=== PATIENT | male | born 1935 | race Caucasian/White ===

== ENCOUNTER 2017-12-25 13:37 | Inpatient (IN) ==
[2017-12-25 14:10] LABS: Basophils % 0.1 %; Hematocrit 36.9 % (37.5-50.1); Hemoglobin 12.3 g/dL (12.9-16.9); Immature Granulocytes % 1.5 % (0-4); Lymphocytes # 0.4 K/mcL (0.6-4.6); Lymphocytes % 2.1 %; Mean Corpuscular HGB Conc 33.3 g/dL (31.6-35.5); Mean Corpuscular Hemoglobin 26.6 pg (28.0-33.3); Mean Corpuscular Volume 79.7 fL (83.0-100.0); Monocytes # 0.9 K/mcL (0.0-1.3); Monocytes % 5.4 %; Neutrophils # 15.7 K/mcL (1.6-8.9); Platelet Count 206 K/mcL (140-400); Red Blood Count 4.63 M/mcL (4.19-5.50); Red Cell Distribution Width 15.3 % (11.5-14.5); Segmented Neutrophils % 90.9 %
[2017-12-25 14:16] LABS: INR 1.3; Prothrombin Time 14.4 Seconds (9.4-12.1)
--- NOTE | 2017-12-25 14:20 | Emergency Department Note ---
Disposition Clinical Impression: Osteomyelitis Qualifiers: Osteomyelitis type: unspecified type Osteomyelitis location: foot Laterality: right Qualified Code(s): M86.9 - Osteomyelitis, unspecified Disposition: Admitted As Inpatient Condition: Good Referrals: NONE,PCP [Primary Care Provider] - Forms: ED Satisfaction Letter General Adult HPI - General Chief complaint: ED Fall Stated complaint: Fall/FEVER/FOOT WOUND Time Seen by Provider: 12/25/17 13:41 Source: EMS Limitations: no limitations Nursing Notes Reviewed: Yes Vital Signs Reviewed: Yes - History of Present Illness HPI Narrative: Patient presents today for evaluation of left hip pain. Patient states that he had surgery for a nonhealing wound on his left foot. This was complicated with plates and screws as well as recurrent nonhealing wound. He states that he was finally cleared to start walking in a boot. The patient states that he has been doing a lot more things and since then has developed some left hip pain. The left hip pain is worse with movement. He states that he was really sore today and was having a hard time getting around so he was rolling off a couch when he had a slight fall where he did catch himself. Patient states no significant head injury. He states that he presented today for evaluation of his hip pain. On exam by triage she is found to be febrile at 102. He states that he has not had any cough or shortness of breath. Patient does have a history of bladder cancer with cystectomy. He has a bladder pump in place and a bladder this made out of large intestine. The scrotal area does have chronic skin changes with dry flaky skin. There is retraction of the glands. There is no abdominal pain. No nausea vomiting or diarrhea. Pain Scale: 8 - Related Data Home Medications Medication Instructions Recorded Confirmed Donepezil [Aricept] 5 mg PO DAILY 12/25/17 12/25/17 InFLIXimab [Remicade] 100 mg IV AD 12/25/17 12/25/17 Losartan [Cozaar] 25 mg PO DAILY 12/25/17 12/25/17 [place]-3/Dha/Epa/Fish Oil [Fish Oil 1 cap PO DAILY 12/25/17 12/25/17 1,000 mg Softgel] Paricalcitol [Zemplar] 1 mcg PO Q72H 12/25/17 12/25/17 Sertraline [Zoloft] 50 mg PO DAILY 12/25/17 12/25/17 Tramadol HCl [Ultram] 50 mg PO QID PRN 12/25/17 12/25/17 amLODIPine [Norvasc] 5 mg PO DAILY 12/25/17 12/25/17 Allergies Allergy/AdvReac Type Severity Reaction Status Date / Time cephalexin [From Keflex] Allergy Hives Verified 12/25/17 14:32 Penicillins Allergy Hives Verified 12/25/17 14:32 Review of Systems: CONSTITUTIONAL: Fever. HEENT: Eyes: No visual changes. Ears, Nose, Throat: No hearing loss, difficulty talking or unable to swallow. SKIN: No rash or itching. CARDIOVASCULAR: No chest pain, chest pressure or chest discomfort. No palpitations or edema. RESPIRATORY: No shortness of breath, cough or sputum. GASTROINTESTINAL: No anorexia, nausea, vomiting or diarrhea. No abdominal pain or blood. GENITOURINARY: No burning on urination or hematuria. NEUROLOGICAL: No headache, dizziness, syncope, paralysis, ataxia, numbness or tingling in the extremities. No change in bowel or bladder control. MUSCULOSKELETAL: Left foot pain and left hip pain Past Medical History - Past Medical History Medical history: Reports: hypertension, renal disease Psychiatric history: Reports: anxiety - Social History Smoking Status: Former smoker Smokeless Tobacco Status: No Alcohol use: Reports: none Drug use: Reports: none Physical Exam General: Well appearing, nontoxic, no acute distress Head: Normocephalic Atraumatic Eyes: PERRL, EOMI ENT: Airway patent, no stridor Neck: supple, no meningismus Chest: Lungs clear to auscultation bilateral Cardiac: Regular rate and rhythm, no murmurs, rubs or gallops Abdomen: soft, nontender, nondistended; no guarding, rebound, or tenderness to percussion Chronic skin changes to the scrotum with pump in place. Retraction of the glans. Musculoskeletal: No pain to the thoracic or lumbar spine. Mild tenderness to palpation over the greater trochanter. Skin: Wound VAC in place on the left foot. Extends to the posterior heel. No signs of erythema. Small bloody drainage within the tube. Neuro: Alert and Oriented to person, place, and time; No focal deficit - General Limitations: no limitations General appearance: alert Course - Reevaluation(s) Reevaluation #1: Patient's infectious workup concerning for ostium myelitis as he has an elevated white count as well as an elevated ESR and CRP. Imaging is negative except for chronic changes of the right foot which has age-indeterminate osteomyelitis in the setting of fever elevated inflammatory markers and increased drainage from the wound VAC it is likely osteomyelitis of the right heel. Patient will be started on Cipro as well as vancomycin. The case was discussed with the patient who was offered transfer to his previous podiatry provider. Patient states at this point he would like to know more what is going on prior to transfer. Patient would like to stay at this hospital if possible. We will discuss with hospitalist as well as podiatry. - Consultations Consultation #1: Discussed with hospitalist. Patient accepted for admission pending discussion with podiatry. Consultation #2: Discussed with Dr. Lynch. Agrees with antibiotics. MR was recommended and he agrees that a bone scan is the best test of choice for the osteomyelitis. He will consult on the patient. Vital Signs Temperature 102.2 F H 12/25/17 13:40 Pulse Rate 92 12/25/17 13:40 Respiratory Rate 18 12/25/17 13:40 Blood Pressure 117/65 12/25/17 13:40 O2 Sat by Pulse Oximetry 96 12/25/17 13:40 Temperature 98.2 F 12/25/17 16:53 Pulse Rate 86 12/25/17 16:53 Respiratory Rate 16 12/25/17 16:53 Blood Pressure 129/76 12/25/17 16:53 O2 Sat by Pulse Oximetry 98 12/25/17 16:53 Oxygen Delivery Oxygen Delivery Room Air Medical Decision Making - Medical Records Medical records reviewed: Yes I reviewed the patient's medical records. - Lab Data Lab results reviewed: Yes I reviewed the patient's lab results. Result diagrams: 12/25/17 13:57 12/25/17 13:57 Lab Results 12/25/17 12/25/17 12/25/17 Range/Units 13:57 13:57 13:57 WBC 17.2 H (4.3-11.1) K/mcL RBC 4.63 (4.19-5.50) M/mcL Hgb 12.3 L (12.9-16.9) g/dL Hct 36.9 L (37.5-50.1) % MCV 79.7 L (83.0-100.0) fL MCH 26.6 L (28.0-33.3) pg MCHC 33.3 (31.6-35.5) g/dL RDW 15.3 H (11.5-14.5) % Plt Count 206 (140-400) K/mcL MPV 9.0 L (9.4-12.4) fL Immature Gran % 1.5 (0-4) % Seg Neutrophils % 90.9 % Lymphocytes % 2.1 % Monocytes % 5.4 % Eosinophils % 0.0 % Basophils % 0.1 % Neutrophils # 15.7 H (1.6-8.9) K/mcL Lymphocytes # 0.4 L (0.6-4.6) K/mcL Monocytes # 0.9 (0.0-1.3) K/mcL Eosinophils # 0.0 (0.0-0.6) K/mcL Basophils # 0.0 (0.0-0.2) K/mcL ESR 94 H (0-10) mm/hr PT 14.4 H (9.4-12.1) Seconds INR 1.3 Sodium (136-145) mEq/L Potassium (3.5-5.1) mEq/L Chloride (98-107) mEq/L Carbon Dioxide (23-29) mEq/L BUN (8-23) mg/dL Creatinine (0.70-1.30) mg/dL Est GFR ( Amer) (> 60) Est GFR (Non-Af Amer) (> 60) BUN/Creatinine Ratio (6-26) Glucose (70-105) mg/dL Calculated Osmolality (280-300) Lactic Acid (0.5-2.2) mmol/L Calcium (8.6-10.3) mg/dL Total Bilirubin (0.3-1.0) mg/dL Direct Bilirubin (0.0-0.2) mg/dL Indirect Bilirubin (0.0-1.2) mg/dL AST (13-39) Units/L ALT (7-52) Units/L Alkaline Phosphatase (34-104) Units/L Troponin I (< 0.04) ng/mL C-Reactive Protein (Less than 10) mg/L Serum Total Protein (6.4-8.9) g/dL Albumin (3.5-5.7) g/dL Globulin (2.4-3.5) g/dL Albumin/Globulin Ratio (1.1-2.2) Urine Color (Yellow) Urine Clarity (Clear) Urine pH (5.0-8.0) pH Units Ur Specific [place] (1.010-1.025) Urine Protein (Neg-Trace) mg/dL Urine Glucose (UA) (Normal) mg/dL Urine Ketones (Negative) mg/dL Urine Blood (Negative) Urine Nitrite (Negative) Urine Bilirubin (Negative) Urine Urobilinogen (Normal) mg/dL Ur Leukocyte Esterase (Negative) Urine Microscopic RBC (0-3) per hpf Urine Microscopic WBC (0-3) per hpf Ur Squamous Epith Cells (None-Few) per lpf Urine Bacteria (None-Few) per hpf Hyaline Casts (None-Few) per lpf Urine Yeast (None Seen) per hpf Ur Culture Indicated? (NO) 12/25/17 12/25/17 12/25/17 Range/Units 13:57 13:57 14:10 WBC (4.3-11.1) K/mcL RBC (4.19-5.50) M/mcL Hgb (12.9-16.9) g/dL Hct (37.5-50.1) % MCV (83.0-100.0) fL MCH (28.0-33.3) pg MCHC (31.6-35.5) g/dL RDW (11.5-14.5) % Plt Count (140-400) K/mcL MPV (9.4-12.4) fL Immature Gran % (0-4) % Seg Neutrophils % % Lymphocytes % % Monocytes % % Eosinophils % % Basophils % % Neutrophils # (1.6-8.9) K/mcL Lymphocytes # (0.6-4.6) K/mcL Monocytes # (0.0-1.3) K/mcL Eosinophils # (0.0-0.6) K/mcL Basophils # (0.0-0.2) K/mcL ESR (0-10) mm/hr PT (9.4-12.1) Seconds INR Sodium 128 L (136-145) mEq/L Potassium 4.3 (3.5-5.1) mEq/L Chloride 97 L (98-107) mEq/L Carbon Dioxide 24 (23-29) mEq/L BUN 27 H (8-23) mg/dL Creatinine 1.75 H (0.70-1.30) mg/dL Est GFR ( Amer) 46 L (> 60) Est GFR (Non-Af Amer) 38 L (> 60) BUN/Creatinine Ratio 15 (6-26) Glucose 126 H (70-105) mg/dL Calculated Osmolality 273 L (280-300) Lactic Acid 1.2 (0.5-2.2) mmol/L Calcium 8.9 (8.6-10.3) mg/dL Total Bilirubin 0.8 (0.3-1.0) mg/dL Direct Bilirubin 0.2 (0.0-0.2) mg/dL Indirect Bilirubin 0.6 (0.0-1.2) mg/dL AST 21 (13-39) Units/L ALT 8 (7-52) Units/L Alkaline Phosphatase 75 (34-104) Units/L Troponin I < 0.03 (< 0.04) ng/mL C-Reactive Protein 254 H (Less than 10) mg/L Serum Total Protein 7.5 (6.4-8.9) g/dL Albumin 3.6 (3.5-5.7) g/dL Globulin 3.9 H (2.4-3.5) g/dL Albumin/Globulin Ratio 0.9 L (1.1-2.2) Urine Color Yellow (Yellow) Urine Clarity Cloudy A (Clear) Urine pH 6.0 (5.0-8.0) pH Units Ur Specific [place] 1.017 (1.010-1.025) Urine Protein 30 H (Neg-Trace) mg/dL Urine Glucose (UA) Normal (Normal) mg/dL Urine Ketones Negative (Negative) mg/dL Urine Blood Small H (Negative) Urine Nitrite Negative (Negative) Urine Bilirubin Negative (Negative) Urine Urobilinogen Normal (Normal) mg/dL Ur Leukocyte Esterase Small H (Negative) Urine Microscopic RBC 5-15 H (0-3) per hpf Urine Microscopic WBC 15-30 H (0-3) per hpf Ur Squamous Epith Cells Many H (None-Few) per lpf Urine Bacteria None Seen (None-Few) per hpf Hyaline Casts None Seen (None-Few) per lpf Urine Yeast Few H (None Seen) per hpf Ur Culture Indicated? NO. A (NO) - Radiology Data Radiology results reviewed: Yes I reviewed the patient's radiology results. - EKG Data EKG #1 EKG attestation: Yes I reviewed and interpreted this EKG. EKG results narrative: EKG shows sinus rhythm with nonspecific T-wave abnormalities. Rate of 87. CT Interval 173. QRS 108. QTC 403. Patient has no ST elevations or depressions. No significant changes from previous EKG of 07/07/14.
[2017-12-25] MEDS ORDERED: 0.9 % Sodium Chloride 500 ML IVC ONE (14:25)
[2017-12-25] MEDS ORDERED: *HR* OxyCODONE Immed Rel 5 MG TABLET PO ONE (14:25)
[2017-12-25 14:33] LABS: Troponin I < 0.03 ng/mL (< 0.04)
[2017-12-25 14:39] LABS: Alanine Aminotransferase 8 Units/L (7-52); Albumin 3.6 g/dL (3.5-5.7); Albumin/Globulin Ratio 0.9 (1.1-2.2); Alkaline Phosphatase 75 Units/L (34-104); Aspartate Amino Transferase 21 Units/L (13-39); BUN/Creatinine Ratio 15 (6-26); Bilirubin,Direct 0.2 mg/dL (0.0-0.2); Bilirubin,Indirect 0.6 mg/dL (0.0-1.2); Bilirubin,Total 0.8 mg/dL (0.3-1.0); Blood Urea Nitrogen 27 mg/dL (8-23); Calcium 8.9 mg/dL (8.6-10.3); Carbon Dioxide 24 mEq/L (23-29); Chloride 97 mEq/L (98-107); Globulin 3.9 g/dL (2.4-3.5); Glucose 126 mg/dL (70-105); Osmolality,Calculated 273 (280-300); Potassium 4.3 mEq/L (3.5-5.1); Sodium 128 mEq/L (136-145); Total Protein 7.5 g/dL (6.4-8.9); eGFR For African Americans 46 (> 60); eGFR For Non-African Americans 38 (> 60)
[2017-12-25 15:23] LABS: C-Reactive Protein 254 mg/L (Less than 10)
[2017-12-25] MEDS ORDERED: Acetaminophen 325 MG TABLET PO ONE (15:25)
[2017-12-25 15:27] LABS: Bilirubin,Urine Negative (Negative); Blood,Urine Small (Negative); Clarity,Urine Cloudy (Clear); Color,Urine Yellow (Yellow); Glucose,Urine (UA) Normal (Normal); Ketones,Urine Negative (Negative); Leukocyte Esterase,Urine Small (Negative); Nitrite,Urine Negative (Negative); Protein,Urine 30 mg/dL (Neg-Trace); Specific Gravity,Urine 1.017 (1.010-1.025); Urobilinogen,Urine Normal (Normal)
[2017-12-25 15:30] LABS: Bacteria,Urine None Seen per hpf (None-Few); Hyaline Casts,Urine None Seen per lpf (None-Few); Squamous Epithelial Cell,Urine Many per lpf (None-Few); WBC,Urine 15-30 per hpf (0-3)
[2017-12-25 15:45] LABS: Yeast,Urine Few per hpf (None Seen)
--- NOTE | 2017-12-25 16:12 | Emergency Department Note ---
Disposition Clinical Impression: Fever Qualifiers: Fever type: unspecified Qualified Code(s): R50.9 - Fever, unspecified Disposition: Still a Patient Condition: Fair Referrals: NONE,PCP [Primary Care Provider] - Forms: ED Satisfaction Letter Fall HPI - General Chief Complaint: ED Fall Stated Complaint: Fall/FEVER/FOOT WOUND Time Seen by Provider: 12/25/17 13:41 Source: EMS Mode of arrival: ambulatory Limitations: no limitations Nursing Notes Reviewed: Yes Vital Signs Reviewed: Yes - Related Data Home Medications Medication Instructions Recorded Confirmed Donepezil [Aricept] 5 mg PO DAILY 12/25/17 12/25/17 InFLIXimab [Remicade] 100 mg IV AD 12/25/17 12/25/17 Losartan [Cozaar] 25 mg PO DAILY 12/25/17 12/25/17 [place]-3/Dha/Epa/Fish Oil [Fish Oil 1 cap PO DAILY 12/25/17 12/25/17 1,000 mg Softgel] Paricalcitol [Zemplar] 1 mcg PO Q72H 12/25/17 12/25/17 Sertraline [Zoloft] 50 mg PO DAILY 12/25/17 12/25/17 Tramadol HCl [Ultram] 50 mg PO QID PRN 12/25/17 12/25/17 amLODIPine [Norvasc] 5 mg PO DAILY 12/25/17 12/25/17 Allergies Allergy/AdvReac Type Severity Reaction Status Date / Time cephalexin [From Keflex] Allergy Hives Verified 12/25/17 14:32 Penicillins Allergy Hives Verified 12/25/17 14:32 Fall PMH - Past Medical History Medical history: Reports: hypertension, renal disease Psychiatric history: Reports: anxiety - Social History Smoking Status: Former smoker Alcohol use: Reports: none Drug use: Reports: none Physical Exam - General Limitations: no limitations General appearance: alert Course Vital Signs Temperature 102.2 F H 12/25/17 13:40 Pulse Rate 92 12/25/17 13:40 Respiratory Rate 18 12/25/17 13:40 Blood Pressure 117/65 12/25/17 13:40 O2 Sat by Pulse Oximetry 96 12/25/17 13:40 Temperature 102.2 F H 12/25/17 13:40 Pulse Rate 92 12/25/17 13:40 Respiratory Rate 18 12/25/17 13:40 Blood Pressure 117/65 12/25/17 13:40 O2 Sat by Pulse Oximetry 96 12/25/17 13:40 Oxygen Delivery Oxygen Delivery Nasal Cannula Fall - Lab Data Result diagrams: 12/25/17 13:57 12/25/17 13:57 Lab Results 12/25/17 12/25/17 12/25/17 Range/Units 13:57 13:57 13:57 WBC 17.2 H (4.3-11.1) K/mcL RBC 4.63 (4.19-5.50) M/mcL Hgb 12.3 L (12.9-16.9) g/dL Hct 36.9 L (37.5-50.1) % MCV 79.7 L (83.0-100.0) fL MCH 26.6 L (28.0-33.3) pg MCHC 33.3 (31.6-35.5) g/dL RDW 15.3 H (11.5-14.5) % Plt Count 206 (140-400) K/mcL MPV 9.0 L (9.4-12.4) fL Immature Gran % 1.5 (0-4) % Seg Neutrophils % 90.9 % Lymphocytes % 2.1 % Monocytes % 5.4 % Eosinophils % 0.0 % Basophils % 0.1 % Neutrophils # 15.7 H (1.6-8.9) K/mcL Lymphocytes # 0.4 L (0.6-4.6) K/mcL Monocytes # 0.9 (0.0-1.3) K/mcL Eosinophils # 0.0 (0.0-0.6) K/mcL Basophils # 0.0 (0.0-0.2) K/mcL ESR 94 H (0-10) mm/hr PT 14.4 H (9.4-12.1) Seconds INR 1.3 Sodium (136-145) mEq/L Potassium (3.5-5.1) mEq/L Chloride (98-107) mEq/L Carbon Dioxide (23-29) mEq/L BUN (8-23) mg/dL Creatinine (0.70-1.30) mg/dL Est GFR ( Amer) (> 60) Est GFR (Non-Af Amer) (> 60) BUN/Creatinine Ratio (6-26) Glucose (70-105) mg/dL Calculated Osmolality (280-300) Lactic Acid (0.5-2.2) mmol/L Calcium (8.6-10.3) mg/dL Total Bilirubin (0.3-1.0) mg/dL Direct Bilirubin (0.0-0.2) mg/dL Indirect Bilirubin (0.0-1.2) mg/dL AST (13-39) Units/L ALT (7-52) Units/L Alkaline Phosphatase (34-104) Units/L Troponin I (< 0.04) ng/mL C-Reactive Protein (Less than 10) mg/L Serum Total Protein (6.4-8.9) g/dL Albumin (3.5-5.7) g/dL Globulin (2.4-3.5) g/dL Albumin/Globulin Ratio (1.1-2.2) Urine Color (Yellow) Urine Clarity (Clear) Urine pH (5.0-8.0) pH Units Ur Specific [place] (1.010-1.025) Urine Protein (Neg-Trace) mg/dL Urine Glucose (UA) (Normal) mg/dL Urine Ketones (Negative) mg/dL Urine Blood (Negative) Urine Nitrite (Negative) Urine Bilirubin (Negative) Urine Urobilinogen (Normal) mg/dL Ur Leukocyte Esterase (Negative) Urine Microscopic RBC (0-3) per hpf Urine Microscopic WBC (0-3) per hpf Ur Squamous Epith Cells (None-Few) per lpf Urine Bacteria (None-Few) per hpf Hyaline Casts (None-Few) per lpf Urine Yeast (None Seen) per hpf Ur Culture Indicated? (NO) 12/25/17 12/25/17 12/25/17 Range/Units 13:57 13:57 14:10 WBC (4.3-11.1) K/mcL RBC (4.19-5.50) M/mcL Hgb (12.9-16.9) g/dL Hct (37.5-50.1) % MCV (83.0-100.0) fL MCH (28.0-33.3) pg MCHC (31.6-35.5) g/dL RDW (11.5-14.5) % Plt Count (140-400) K/mcL MPV (9.4-12.4) fL Immature Gran % (0-4) % Seg Neutrophils % % Lymphocytes % % Monocytes % % Eosinophils % % Basophils % % Neutrophils # (1.6-8.9) K/mcL Lymphocytes # (0.6-4.6) K/mcL Monocytes # (0.0-1.3) K/mcL Eosinophils # (0.0-0.6) K/mcL Basophils # (0.0-0.2) K/mcL ESR (0-10) mm/hr PT (9.4-12.1) Seconds INR Sodium 128 L (136-145) mEq/L Potassium 4.3 (3.5-5.1) mEq/L Chloride 97 L (98-107) mEq/L Carbon Dioxide 24 (23-29) mEq/L BUN 27 H (8-23) mg/dL Creatinine 1.75 H (0.70-1.30) mg/dL Est GFR ( Amer) 46 L (> 60) Est GFR (Non-Af Amer) 38 L (> 60) BUN/Creatinine Ratio 15 (6-26) Glucose 126 H (70-105) mg/dL Calculated Osmolality 273 L (280-300) Lactic Acid 1.2 (0.5-2.2) mmol/L Calcium 8.9 (8.6-10.3) mg/dL Total Bilirubin 0.8 (0.3-1.0) mg/dL Direct Bilirubin 0.2 (0.0-0.2) mg/dL Indirect Bilirubin 0.6 (0.0-1.2) mg/dL AST 21 (13-39) Units/L ALT 8 (7-52) Units/L Alkaline Phosphatase 75 (34-104) Units/L Troponin I < 0.03 (< 0.04) ng/mL C-Reactive Protein 254 H (Less than 10) mg/L Serum Total Protein 7.5 (6.4-8.9) g/dL Albumin 3.6 (3.5-5.7) g/dL Globulin 3.9 H (2.4-3.5) g/dL Albumin/Globulin Ratio 0.9 L (1.1-2.2) Urine Color Yellow (Yellow) Urine Clarity Cloudy A (Clear) Urine pH 6.0 (5.0-8.0) pH Units Ur Specific [place] 1.017 (1.010-1.025) Urine Protein 30 H (Neg-Trace) mg/dL Urine Glucose (UA) Normal (Normal) mg/dL Urine Ketones Negative (Negative) mg/dL Urine Blood Small H (Negative) Urine Nitrite Negative (Negative) Urine Bilirubin Negative (Negative) Urine Urobilinogen Normal (Normal) mg/dL Ur Leukocyte Esterase Small H (Negative) Urine Microscopic RBC 5-15 H (0-3) per hpf Urine Microscopic WBC 15-30 H (0-3) per hpf Ur Squamous Epith Cells Many H (None-Few) per lpf Urine Bacteria None Seen (None-Few) per hpf Hyaline Casts None Seen (None-Few) per lpf Urine Yeast Few H (None Seen) per hpf Ur Culture Indicated? NO. A (NO) Attestation Statement - Attestation Attestation: I, Sean Knowles, examined this patient and my medical decision-making was reviewed with the [employer]/PA/Advanced Practice Nurse/Resident Physician. I agree with the documented findings, disposition and treatment plan as described except to the extent set forth below. 82-year-old male presents emergency Department with concerns of pain to the left foot, and fever. Patient states he recently had surgery on the leg and he was cleared to be ambulatory. Patient states he was active yesterday which she believes caused more pain for him today. Patient denies cough, chest pain, abdominal pain. Patient was febrile to 102.2 on initial evaluation. He has a wound VAC in place to the left heel which she states appears unchanged however he does have increased pain to the left heel and left hip. Patient has a definitive leukocytosis, urinalysis does not show an obvious urinary tract infection. X-ray showed possible chronic erosion of the left heel but also changes concerning for possible osteomyelitis. Patient will be started on antibiotics and he was receive MRI of the foot to further evaluate for possible osteomyelitis. Patient comfortable with the plan for admission to the hospital.
--- NOTE | 2017-12-25 18:28 | Internal Med History&Physical ---
Date of Encounter: 12/25/17 Time of Encounter: 07:00 Internal Medicine - H&P: HPI Chief complaint: left hip pain History of present illness: Mr. Bajwa is a 82 year old male Patient states that he had surgery for a nonhealing wound on his left foot and was complicated with plates and screws as well as recurrent nonhealing wound and presented today with left hip pain that is worse with movement. Posterior wound VAC was noted in place. He was evaluated by the ER staff and found to be febrile at 102. Patient's infectious workup concerning for Osteomyelitis as he has an elevated white count as well as an elevated ESR and CRP. x-ray of the left foot revealed age- indeterminate but chronic appearing erosion over the posterior aspect of the calcaneus. Given the clinical concern for osteomyelitis MRI was recommended further evaluation.P Dr. Lynch was consulted in the ER agrees with starting antibiotics regimen. he was admitted for further evaluation and management Past Med Surg Social Fam HX - Past Medical History Medical history: hypertension, renal disease Psychiatric history: anxiety - Social History Smoking Status: Former smoker Smokeless Tobacco Status: No Alcohol use: none Drug use: none Internal Medicine - H&P: Meds Donepezil [Aricept] 5 mg PO DAILY 12/25/17 [History] InFLIXimab [Remicade] 100 mg IV AD 12/25/17 [History] Losartan [Cozaar] 25 mg PO DAILY 12/25/17 [History] [place]-3/Dha/Epa/Fish Oil [Fish Oil 1,000 mg Softgel] 1 cap PO DAILY 12/25/17 [ History] Paricalcitol [Zemplar] 1 mcg PO Q72H 12/25/17 [History] Sertraline [Zoloft] 50 mg PO DAILY 12/25/17 [History] Tramadol HCl [Ultram] 50 mg PO QID PRN 12/25/17 [History] amLODIPine [Norvasc] 5 mg PO DAILY 12/25/17 [History] 3 Allergy/AdvReac Type Severity Reaction Status Date / Time cephalexin [From Keflex] Allergy Hives Verified 12/25/17 14:32 Penicillins Allergy Hives Verified 12/25/17 14:32 All Systems PM: A 10-system review of systems was performed and is negative for pertinent findings except as documented above in the HPI. - Constitutional Constitutional: no chills, no fever(s), no night sweats - Cardiovascular Cardiovascular ROS IM: no chest pain, no diaphoresis, no dyspnea, no lightheadedness, no palpitations, no syncope - Respiratory Respiratory: no cough, no dyspnea, no wheezing, no excessive phlegm production - Gastrointestinal Gastrointestinal: no abdominal pain, no diarrhea, no hematemesis, no hematochezia, no melena, no nausea, no vomiting - Musculoskeletal Musculoskeletal ROS IM: as per HPI - Integumentary Integumentary IM: as per HPI - Neurological Neurological ROS: no confusion, no convulsions, no focal weakness, no numbness, no tingling, no tremor(s) - Constitutional Vitals: Temp Pulse Resp BP Pulse Ox 98.2 F 86 16 124/74 98 12/25/17 16:53 12/25/17 16:53 12/25/17 17:38 12/25/17 17:38 12/25/17 16:53 General appearance: Present: A&O X 3 - Head Head exam: Present: atraumatic, normocephalic - Neck Neck exam general surgery: Present: supple, trachea midline. Absent: lymphadenopathy - Respiratory Respiratory exam: Present: CTAB. Absent: accessory muscle use, rales, rhonchi, wheezes - Cardiovascular Cardiovascular exam: Present: RRR, +S1, +S2. Absent: diastolic murmur, gallop, rubs, systolic murmur - GI/Abdominal GI/Abdominal exam: Present: normal bowel sounds, soft, no peritoneal signs. Absent: distended, tenderness - Extremities Exam Extremities exam: Present: warm, radial pulses palpable and symmetrical. Absent : calf tenderness, cyanotic, pedal edema Additional comments: Left foot posterior wound VAC in place. Internal Med - H&P Results - Labs CBC & Chem 7: 01/03/18 04:09 01/03/18 04:09 - Assessment and plan (1) Osteomyelitis Current Visit: Yes Status: Acute Assessment and plan: the patient was started on antibiotics combination of ciprofloxacin and vancomycin by the ER staff, will continue current regimen, MRI of the left foot was recommended to confirm diagnosis, Dr. Lynch was consulted for further evaluation and management. 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 (3) Anemia Current Visit: Yes Status: Acute Assessment and plan: most likely secondary to chronic disease, hemoglobin stable, check Iron stores and continue to monitor. Qualifiers: Anemia type: due to chronic kidney disease Chronic kidney disease stage: stage 3 (moderate) Qualified Code(s): N18.3 - Chronic kidney disease, stage 3 (moderate); D63.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 (4) CKD (chronic kidney disease) Current Visit: Yes Status: Chronic Assessment and plan: creatinine is slightly higher than baseline, most likely secondary to volume depletion and decreased renal perfusion in the setting of underlying infectious process, we'll start hydration with isotonic fluid and continue to monitor renal panel Qualifiers: Chronic kidney disease stage: stage 3 (moderate) Qualified Code(s): N18.3 - Chronic kidney disease, stage 3 (moderate) (5) DVT prophylaxis Current Visit: Yes Status: Acute Assessment and plan: Start the patient on Subcontinuous heparin and place SCDs - Time Spent With Patient Total time spent is greater than 50% in coordination of care (as documented) at patient's floor/unit and/or counseling patient:
[2017-12-25] MEDS ORDERED: Naloxone 0.4 MG/ML INJ IVP PRN (18:39)
[2017-12-25] MEDS: 0.9 % Sodium Chloride 1,000 ML IVC SCH (20:30)
[2017-12-25] MEDS: traMADol 50 MG TABLET PO PRN (22:04)
[2017-12-26] MEDS ORDERED: Famotidine 20 MG TABLET PO PRN ×2 (00:28→13:12)
[2017-12-26] MEDS: Sennosides 8.6 MG TABLET PO SCH ×3 (00:46→22:14)
[2017-12-26 01:40] LABS: Albumin/Globulin Ratio 0.9 (1.1-2.2); Bilirubin,Total 0.6 mg/dL (0.3-1.0); Calcium 8.2 mg/dL (8.6-10.3); Chol/HDL Ratio 3.3 (0-4.9); Globulin 3.3 g/dL (2.4-3.5); Magnesium 1.7 mg/dL (1.6-2.6); Phosphorous 2.9 mg/dL (2.7-4.5); Potassium 3.8 mEq/L (3.5-5.1); Total Protein 6.3 g/dL (6.4-8.9)
[2017-12-26 01:41] LABS: Hematocrit 32.5 % (37.5-50.1); Hemoglobin 11.2 g/dL (12.9-16.9); Mean Corpuscular Hemoglobin 27.7 pg (28.0-33.3); Mean Corpuscular Volume 80.4 fL (83.0-100.0); Red Blood Count 4.04 M/mcL (4.19-5.50)
[2017-12-26 01:42] LABS: Basophils % 0.2 %; Eosinophils % 0.1 %; Immature Granulocytes % 0.8 % (0-4); Lymphocytes # 0.8 K/mcL (0.6-4.6); Lymphocytes % 6.4 %; Mean Corpuscular HGB Conc 34.5 g/dL (31.6-35.5); Mean Platelet Volume 8.9 fL (9.4-12.4); Monocytes % 7.3 %; Neutrophils # 11.3 K/mcL (1.6-8.9); Platelet Count 186 K/mcL (140-400); Red Cell Distribution Width 15.1 % (11.5-14.5); Segmented Neutrophils % 85.2 %
[2017-12-26 02:21] LABS: Activated Partial Thrombo Time 27.6 Seconds (26.0-36.0); INR 1.3; Prothrombin Time 14.5 Seconds (9.4-12.1)
[2017-12-26] MEDS: Acetaminophen 325 MG TABLET PO PRN ×3 (03:56→22:29)
[2017-12-26] MEDS: amLODIPine 5 MG TABLET PO SCH (08:06)
[2017-12-26] MEDS: *HR* Heparin 5,000 UNIT/ML VIAL SQ SCH ×2 (08:06→17:00)
[2017-12-26] MEDS: traMADol 50 MG TABLET PO PRN ×2 (08:15→21:38)
[2017-12-26] MEDS ORDERED: (Omega-3/Dha/Epa/Fish Oil [Fish Oil 1,000 Mg Softgel] PO SCH (09:00)
[2017-12-26] MEDS: 0.9 % Sodium Chloride 1,000 ML IVC SCH ×2 (10:40→22:14)
--- NOTE | 2017-12-26 15:21 | Internal Med Progress Note ---
Date of Encounter: 12/26/17 Time of Encounter: 15:21 - Assessment and plan (1) Sepsis Current Visit: Yes Status: Acute Assessment and plan: Secondary to osteomyeltitis of left foot SIRS 2 criteria, leukocytosis, fever WBC improving, patient has remained afebrile over past 24 hours. Continue Cipro/Vancomcyin ID consulted recommendations appreciated Podiatry consulted, recommendations appreciated. Qualifiers: Sepsis type: sepsis due to unspecified organism Qualified Code(s): A41.9 - Sepsis, unspecified organism (2) Osteomyelitis Current Visit: Yes Status: Acute Assessment and plan: Of left foot, seen on bone scan and x-ray. Dr. Lynch was consulted for further evaluation and management. Recommendations appreciated On Cipro/vancomycin. Qualifiers: Osteomyelitis type: unspecified type Osteomyelitis location: foot Laterality: right Qualified Code(s): M86.9 - Osteomyelitis, unspecified (3) Hypo-osmolality and hyponatremia Current Visit: Yes Status: Acute Assessment and plan: most likely secondary to volume depletion and dehydration in the setting of underlying infectious process Follow up urine studies Restart normal saline. (4) Anemia Current Visit: Yes Status: Acute Assessment and plan: most likely secondary to chronic disease, hemoglobin stable, Iron studies pending. Qualifiers: Anemia type: unspecified type Qualified Code(s): D64.9 - Anemia, unspecified (5) CKD (chronic kidney disease) Current Visit: Yes Status: Acute Assessment and plan: At baseline now. Continue to use nephroprotective strategy and renally dose medications. Qualifiers: Chronic kidney disease stage: stage 3 (moderate) Qualified Code(s): N18.3 - Chronic kidney disease, stage 3 (moderate) (6) DVT prophylaxis Current Visit: Yes Status: Acute Assessment and plan: Continue SQ heparin - Time Spent With Patient Total time spent is greater than 50% in coordination of care (as documented) at patient's floor/unit and/or counseling patient: - Subjective Interval history: Patient states he is feeling well. Denies foot pain, fevers/chills, n/v. - Constitutional Vitals: Temp Pulse Resp BP Pulse Ox 98 F 81 16 130/63 97 12/26/17 15:06 12/26/17 15:06 12/26/17 15:06 12/26/17 15:06 05/23/18 15:06 General appearance: Present: A&O X 3 - Head Head exam: Present: atraumatic, normocephalic - Eye Eye exam: Present: PERRL, conjuntiva pink, sclera anicteric Pupils: Present: PERRL - Neck Neck exam general surgery: Present: supple, trachea midline. Absent: lymphadenopathy - Respiratory Respiratory exam: Present: CTAB. Absent: accessory muscle use, rales, rhonchi, wheezes - Cardiovascular Cardiovascular exam: Present: RRR, +S1, +S2. Absent: diastolic murmur, gallop, rubs, systolic murmur - GI/Abdominal GI/Abdominal exam: Present: normal bowel sounds, soft, no peritoneal signs. Absent: distended, tenderness - Extremities Exam Extremities exam: Present: warm, radial pulses palpable and symmetrical. Absent : calf tenderness, cyanotic, pedal edema Additional comments: - Head Head exam: Present: atraumatic, normocephalic - Neck Neck exam general surgery: Present: supple, trachea midline. Absent: lymphadenopathy - Respiratory Respiratory exam: Present: CTAB. Absent: accessory muscle use, rales, rhonchi, wheezes - Cardiovascular Cardiovascular exam: Present: RRR, +S1, +S2. Absent: diastolic murmur, gallop, rubs, systolic murmur - GI/Abdominal GI/Abdominal exam: Present: normal bowel sounds, soft, no peritoneal signs. Absent: distended, tenderness - Extremities Exam Extremities exam: Present: warm, radial pulses palpable and symmetrical. Absent : calf tenderness, cyanotic, pedal edema Left foot wrapped. No active drainage or bleeding. - Neurological Exam Neurological exam: Present: CN II-XII intact, oriented X3, no focal deficits. Absent: pronater drift, facial droop, speech deficit - Skin Skin exam: Present: dry, intact Internal Medicine: Result - Labs CBC & Chem 7: 12/26/17 01:07 12/26/17 01:07 Labs: Short CBC 12/26/17 Range/Units 01:07 WBC 13.2 H (4.3-11.1) K/mcL Hgb 11.2 L (12.9-16.9) g/dL Hct 32.5 L (37.5-50.1) % Plt Count 186 (140-400) K/mcL Neutrophils # 11.3 H (1.6-8.9) K/mcL BMP 12/26/17 01:07 Sodium 127 L Potassium 3.8 Chloride 99 Carbon Dioxide 21 L BUN 29 H Creatinine 1.66 H Glucose 109 H Calcium 8.2 L Cardiac Enzymes 12/25/17 12/26/17 12/26/17 Range/Units 19:02 01:07 06:21 Troponin I 0.03 0.03 < 0.03 (< 0.04) ng/mL Liver Function 12/26/17 Range/Units 01:07 Total Bilirubin 0.6 (0.3-1.0) mg/dL AST 48 H (13-39) Units/L ALT 12 (7-52) Units/L Alkaline Phosphatase 66 (34-104) Units/L Albumin 3.0 L (3.5-5.7) g/dL - ABG Interpretation ABG results: PT/INR, D-dimer PT 14.5 Seconds (9.4-12.1) H 12/26/17 01:07 Consult Discharge Plan - Plan Referrals: Cosme Martínez MD [Non-Partnered Physician] -
--- NOTE | 2017-12-26 16:35 | Podiatry Consult Note ---
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 Plain film and bone scan concerning for osteomyelitis Explained to patient Wound does not look acutely infected however there is a large amount of fibrous connective tissue within wound and minimal granulation tissue DP/PT pulses are non palpable and pallor noted to toes #1 through #5 bilaterally with calcifications seen on xray, will obtain TRIP's at this time to assess for blood flow Pending TRIP's, if blood flow is adequate patient wound likely undergo a partial calcanectomy with closure of wound to clean out and remove infected portion of bone If impaired blood flow is noted, vascular will need consulted for recommendations Continue current antibiotic therapy vanc/cipro- monitor kidneys Minimal weight bearing, protective and to forefoot only Heel off of bed at all times Cleansed wound with saline, adaptic, 4x4 and bulk dressing applied. Foot X-Ray 12/25/17 14:10 IMPRESSION: 1. Age-indeterminate but chronic appearing erosion over the posterior aspect of the calcaneus. If there is clinical concern for osteomyelitis MRI could be obtained for further evaluation. 2. Posterior wound VAC in place. No soft tissue gas. 3. Status post subtalar and medial midfoot arthrodesis without complication identified. Bone Scan Nuclear Medicine 12/25/17 16:56 IMPRESSION: 1. Three-phase positive uptake along the left calcaneus concerning for osteomyelitis. 2. Blood flow on blood pool activity localizing to the right forefoot without delayed uptake, suggesting soft tissue inflammation/ infection. 2. Three-phase positive uptake in the left midfoot corresponding to the location of arthrodesis hardware, correlate with timing of surgery. D/ / Willi Ramos MD / Willi Ramos MD Interpreting Provider: Willi Ramos MD Qualifiers: Osteomyelitis type: unspecified type Osteomyelitis location: foot Laterality: right Qualified Code(s): M86.9 - Osteomyelitis, unspecified History of Present Illness HPI: Mr. Bajwa is a 82 year old male history of HTN and renal disease and reports her was a former smoker. Patient arrived to [facility] with reports of left hip pain and slight fever. Per patients reports, he ruptured his achilles tendon and fractured his left foot last year, appears to have also undergone midfoot recon - patient states that after seeing 7 doctors he was sent to [facility] in june they placed him in a non weight bearing cast prior to surgery and he went for achilles repair 1 week later- patient reports a pressure sore formed to the right heel at that time and has not healed. States he has been undergoing vac therapy since then. States after the achilles repair he was told he had bone infection and received 6 weeks IV antibiotic therapy at that time. Patients history of foot surgery is unclear and he is uncertain which antibiotic he was on for 6 weeks. Patient states he was given the ok to walk more with boot on and wound vac, states he believed he overdid it and started to have left hip pain and felt fevered so he came in to the hospital. Patient states he does have pain to his foot at this time, reports 01/13. Patient denies any known chills, n/v or flu like symptoms at this time. Wound vac was removed on admission for imagining. Patient had plain film obtained concerning for osteomyelitis, podiatry was consulted for further evaluation and recommendations , bone scan also positive for possible osteomyelitis of the right heel. Past Med Surg Social Fam HX - Past Medical History Medical history: hypertension, renal disease Psychiatric history: anxiety - Past Surgical History Surgical History: cancer surgery - Social History Smoking Status: Former smoker Smokeless Tobacco Status: No Alcohol use: none Drug use: none Medications and Allergies Donepezil [Aricept] 5 mg PO DAILY 12/25/17 [History] InFLIXimab [Remicade] 100 mg IV AD 12/25/17 [History] Losartan [Cozaar] 25 mg PO DAILY 12/25/17 [History] [place]-3/Dha/Epa/Fish Oil [Fish Oil 1,000 mg Softgel] 1 cap PO DAILY 12/25/17 [ History] Paricalcitol [Zemplar] 1 mcg PO Q72H 12/25/17 [History] Sertraline [Zoloft] 50 mg PO DAILY 12/25/17 [History] Tramadol HCl [Ultram] 50 mg PO QID PRN 12/25/17 [History] amLODIPine [Norvasc] 5 mg PO DAILY 12/25/17 [History] 3 Allergy/AdvReac Type Severity Reaction Status Date / Time cephalexin [From Keflex] Allergy Hives Verified 12/25/17 14:32 Penicillins Allergy Hives Verified 12/25/17 14:32 All Systems Reviewed: As per HPI Physical Exam - Constitutional Vitals: Temp Pulse Resp BP Pulse Ox 98 F 81 16 130/63 97 12/26/17 15:06 12/26/17 15:06 12/26/17 15:06 12/26/17 15:06 12/26/17 15:06 Exam: General Examination: CONSTITUTIONAL: Alert, oriented, in no acute distress, non-toxic. EXTREMITIES: CFT 4-5 seconds to toes, Edema +1 and pedal pulses non palpable, slight pallor to toes. SKIN:There is a 2.5cmx2.5cmx0.3cm ulceration to posterior aspect of the left heel overlying the achilles insertion site. No surrounding edema or erythema. There is slight warmth to palpation. 100% white fibrous tissue to base. no sinus tracts or underminimg. No probe to bone. No odor. No drainage. No flucutance. NEUROLOGIC: Intact sensation to light-moderate touch Results - Labs Result Diagrams: 12/27/17 07:39 12/27/17 07:39 Labs: Abnormal lab results WBC 13.2 K/mcL (4.3-11.1) H 12/26/17 01:07 RBC 4.04 M/mcL (4.19-5.50) L 12/26/17 01:07 Hgb 11.2 g/dL (12.9-16.9) L 12/26/17 01:07 Hct 32.5 % (37.5-50.1) L 12/26/17 01:07 MCV 80.4 fL (83.0-100.0) L 12/26/17 01:07 MCH 27.7 pg (28.0-33.3) L 12/26/17 01:07 RDW 15.1 % (11.5-14.5) H 12/26/17 01:07 MPV 8.9 fL (9.4-12.4) L 12/26/17 01:07 Neutrophils # 11.3 K/mcL (1.6-8.9) H 12/26/17 01:07 ESR 94 mm/hr (0-10) H 12/25/17 13:57 PT 14.5 Seconds (9.4-12.1) H 12/26/17 01:07 Sodium 127 mEq/L (136-145) L 12/26/17 01:07 Carbon Dioxide 21 mEq/L (23-29) L 12/26/17 01:07 BUN 29 mg/dL (8-23) H 12/26/17 01:07 Creatinine 1.66 mg/dL (0.70-1.30) H 12/26/17 01:07 Est GFR ( Amer) 49 (> 60) L 12/26/17 01:07 Est GFR (Non-Af Amer) 40 (> 60) L 12/26/17 01:07 Glucose 109 mg/dL (70-105) H 12/26/17 01:07 Calculated Osmolality 270 (280-300) L 12/26/17 01:07 Calcium 8.2 mg/dL (8.6-10.3) L 12/26/17 01:07 AST 48 Units/L (13-39) H 12/26/17 01:07 C-Reactive Protein 254 mg/L (Less than 10) H 12/25/17 13:57 Serum Total Protein 6.3 g/dL (6.4-8.9) L 12/26/17 01:07 Albumin 3.0 g/dL (3.5-5.7) L 12/26/17 01:07 Albumin/Globulin Ratio 0.9 (1.1-2.2) L 12/26/17 01:07 HDL Cholesterol 36 mg/dL (40-59) L 12/26/17 01:07 Urine Clarity Cloudy (Clear) A 12/25/17 14:10 Urine Protein 30 mg/dL (Neg-Trace) H 12/25/17 14:10 Urine Blood Small (Negative) H 12/25/17 14:10 Ur Leukocyte Esterase Small (Negative) H 12/25/17 14:10 Urine Microscopic RBC 5-15 per hpf (0-3) H 12/25/17 14:10 Urine Microscopic WBC 15-30 per hpf (0-3) H 12/25/17 14:10 Ur Squamous Epith Cells Many per lpf (None-Few) H 12/25/17 14:10 Urine Yeast Few per hpf (None Seen) H 12/25/17 14:10 Ur Culture Indicated? NO. (NO) A 12/25/17 14:10 H & H 12/26/17 Range/Units 01:07 Hgb 11.2 L (12.9-16.9) g/dL Hct 32.5 L (37.5-50.1) % All other labs normal. Consult Discharge Plan - Plan Referrals: Cosme Martínez MD [Non-Partnered Physician] -
--- NOTE | 2017-12-26 20:24 | Electrocardiograph Report ---
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
[2017-12-27] MEDS: *HR* Heparin 5,000 UNIT/ML VIAL SQ SCH ×2 (04:23→17:17)
[2017-12-27] MEDS: traMADol 50 MG TABLET PO PRN ×2 (04:23→21:18)
[2017-12-27] MEDS: Acetaminophen 325 MG TABLET PO PRN ×2 (07:53→20:12)
[2017-12-27] MEDS: amLODIPine 5 MG TABLET PO SCH (07:53)
[2017-12-27] MEDS: Sennosides 8.6 MG TABLET PO SCH ×2 (07:53→20:12)
[2017-12-27 08:14] LABS: Basophils % 0.3 %; Eosinophils % 0.3 %; Hematocrit 34.2 % (37.5-50.1); Hemoglobin 11.6 g/dL (12.9-16.9); Immature Granulocytes % 1.2 % (0-4); Lymphocytes # 0.9 K/mcL (0.6-4.6); Lymphocytes % 7.6 %; Mean Corpuscular HGB Conc 33.9 g/dL (31.6-35.5); Mean Corpuscular Hemoglobin 27.6 pg (28.0-33.3); Mean Corpuscular Volume 81.2 fL (83.0-100.0); Mean Platelet Volume 9.4 fL (9.4-12.4); Monocytes # 0.7 K/mcL (0.0-1.3); Monocytes % 5.7 %; Neutrophils # 10.2 K/mcL (1.6-8.9); Platelet Count 259 K/mcL (140-400); Red Blood Count 4.21 M/mcL (4.19-5.50); Red Cell Distribution Width 15.5 % (11.5-14.5); Segmented Neutrophils % 84.9 %
--- NOTE | 2017-12-27 08:24 | Podiatry Progress Note ---
Date of Encounter: 12/27/17 Time of Encounter: 08:15 - Assessment and Plan (1) Osteomyelitis Current Visit: Yes Status: Acute consult vascular to see if any intervention to try to improve blood flow warranted in the left lower extremity and then will make more definitive plan regarding possible partial calcanectomy of the left lower extremity. Qualifiers: Osteomyelitis type: unspecified type Osteomyelitis location: foot Laterality: right Qualified Code(s): M86.9 - Osteomyelitis, unspecified Objective - Vital Signs Vital Signs: Vital Signs Temp Pulse Resp BP Pulse Ox 12/27/17 07:15 98.7 F 76 16 124/65 98 12/27/17 04:28 98.4 F 74 15 119/62 94 12/26/17 18:49 99.4 F 79 15 105/54 96 12/26/17 15:06 98 F 81 16 130/63 97 12/26/17 09:00 97.9 F 84 16 132/60 97 Intake and Output 12/26/17 12/27/17 12/27/17 23:59 07:59 15:59 Intake Total 310 / 310 200 / 200 Output Total 0 / 0 0 / 0 Balance 310 / 310 200 / 200 Intake: IV Fluids 250 / 250 200 / 200 Cipro Premix 400 MG/200 ML 400 200 / 200 mg In 200 ml @ 200 mls/hr IVPB Q12H KJ Rx#:[id number] Vancocin 1,250 MG In 0.9 % 250 / 250 Sodium Chloride 250 ML @ 167 mls/hr IVPB Q24H KJ Rx#: [id number] Oral 60 / 60 0 / 0 Output: Urine 0 / 0 0 / 0 Other: # Voids 1 Weight 79.5 kg Patient Weight 12/27/17 23:59 Weight 79.5 kg - Lab Result Diagrams: 12/27/17 07:39 12/26/17 01:07 Labs: Abnormal lab results WBC 12.0 K/mcL (4.3-11.1) H 12/27/17 07:39 Hgb 11.6 g/dL (12.9-16.9) L 12/27/17 07:39 Hct 34.2 % (37.5-50.1) L 12/27/17 07:39 MCV 81.2 fL (83.0-100.0) L 12/27/17 07:39 MCH 27.6 pg (28.0-33.3) L 12/27/17 07:39 RDW 15.5 % (11.5-14.5) H 12/27/17 07:39 Neutrophils # 10.2 K/mcL (1.6-8.9) H 12/27/17 07:39 ESR 94 mm/hr (0-10) H 12/25/17 13:57 PT 14.5 Seconds (9.4-12.1) H 12/26/17 01:07 Sodium 127 mEq/L (136-145) L 12/26/17 01:07 Carbon Dioxide 21 mEq/L (23-29) L 12/26/17 01:07 BUN 29 mg/dL (8-23) H 12/26/17 01:07 Creatinine 1.66 mg/dL (0.70-1.30) H 12/26/17 01:07 Est GFR ( Amer) 49 (> 60) L 12/26/17 01:07 Est GFR (Non-Af Amer) 40 (> 60) L 12/26/17 01:07 Glucose 109 mg/dL (70-105) H 12/26/17 01:07 Calculated Osmolality 270 (280-300) L 12/26/17 01:07 Calcium 8.2 mg/dL (8.6-10.3) L 12/26/17 01:07 AST 48 Units/L (13-39) H 12/26/17 01:07 C-Reactive Protein 254 mg/L (Less than 10) H 12/25/17 13:57 Serum Total Protein 6.3 g/dL (6.4-8.9) L 12/26/17 01:07 Albumin 3.0 g/dL (3.5-5.7) L 12/26/17 01:07 Albumin/Globulin Ratio 0.9 (1.1-2.2) L 12/26/17 01:07 HDL Cholesterol 36 mg/dL (40-59) L 12/26/17 01:07 Urine Clarity Cloudy (Clear) A 12/25/17 14:10 Urine Protein 30 mg/dL (Neg-Trace) H 12/25/17 14:10 Urine Blood Small (Negative) H 12/25/17 14:10 Ur Leukocyte Esterase Small (Negative) H 12/25/17 14:10 Urine Microscopic RBC 5-15 per hpf (0-3) H 12/25/17 14:10 Urine Microscopic WBC 15-30 per hpf (0-3) H 12/25/17 14:10 Ur Squamous Epith Cells Many per lpf (None-Few) H 12/25/17 14:10 Urine Yeast Few per hpf (None Seen) H 12/25/17 14:10 Ur Culture Indicated? NO. (NO) A 12/25/17 14:10 Consult Discharge Plan - Plan Referrals: Cosme Martínez MD [Non-Partnered Physician] -
[2017-12-27 10:10] LABS: Calcium 8.8 mg/dL (8.6-10.3); Potassium 3.7 mEq/L (3.5-5.1)
--- NOTE | 2017-12-27 13:31 | Internal Med Progress Note ---
Date of Encounter: 12/27/17 Time of Encounter: 14:28 - Assessment and plan (1) Sepsis Current Visit: Yes Status: Acute Assessment and plan: Secondary to osteomyeltitis of left foot SIRS 2 criteria on admission, leukocytosis, fever WBC improving, patient has remained afebrile Continue Cipro/Vancomcyin - ID consulted recommendations appreciated - Podiatry consulted, recommendations appreciated. Qualifiers: Sepsis type: sepsis due to unspecified organism Qualified Code(s): A41.9 - Sepsis, unspecified organism (2) Osteomyelitis Current Visit: Yes Status: Acute Assessment and plan: Of left foot, seen on bone scan, has non healing ulcer of left foot after surgery. On Cipro/vancomycin. Patient had TRIP done that consistent with PAD. Ideally will need surgery to foot, but will need Vascular Surgery evaluation. ID consulted, recommendations appreciated. Qualifiers: Osteomyelitis type: unspecified type Osteomyelitis location: foot Laterality: right Qualified Code(s): M86.9 - Osteomyelitis, unspecified (3) Hypo-osmolality and hyponatremia Current Visit: Yes Status: Acute Assessment and plan: most likely secondary to volume depletion and dehydration in the setting of underlying infectious process Follow up urine studies Continue normal saline (4) Anemia Current Visit: Yes Status: Acute Assessment and plan: most likely secondary to chronic disease, hemoglobin stable, Iron studies pending. Qualifiers: Anemia type: due to chronic kidney disease Chronic kidney disease stage: stage 3 (moderate) Qualified Code(s): N18.3 - Chronic kidney disease, stage 3 (moderate); D63.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 (5) CKD (chronic kidney disease) Current Visit: Yes Status: Acute Assessment and plan: Stage III CKD Continue to use nephroprotective strategy and renally dose medications. Qualifiers: Chronic kidney disease stage: stage 3 (moderate) Qualified Code(s): N18.3 - Chronic kidney disease, stage 3 (moderate) (6) DVT prophylaxis Current Visit: Yes Status: Acute Assessment and plan: Continue SQ heparin - Time Spent With Patient Total time spent is greater than 50% in coordination of care (as documented) at patient's floor/unit and/or counseling patient: - Subjective Interval history: Patient denies foot pain, denies fevers/chills, n/v. - Constitutional Vitals: Temp Pulse Resp BP Pulse Ox 98.7 F 76 16 124/65 98 12/27/17 07:15 12/27/17 07:15 12/27/17 07:15 12/27/17 07:15 12/27/17 08:00 General appearance: Present: A&O X 3 - Head Head exam: Present: atraumatic, normocephalic - Eye Eye exam: Present: PERRL, conjuntiva pink, sclera anicteric Pupils: Present: PERRL - Neck Neck exam general surgery: Present: supple, trachea midline. Absent: lymphadenopathy - Respiratory Respiratory exam: Present: CTAB. Absent: accessory muscle use, rales, rhonchi, wheezes - Cardiovascular Cardiovascular exam: Present: RRR, +S1, +S2. Absent: diastolic murmur, gallop, rubs, systolic murmur - GI/Abdominal GI/Abdominal exam: Present: normal bowel sounds, soft, no peritoneal signs. Absent: distended, tenderness - Extremities Exam Extremities exam: Present: warm, radial pulses palpable and symmetrical. Absent : calf tenderness, cyanotic, pedal edema Additional comments: left foot toes cool to touch, pulses difficult to palpate. no erythema - Neurological Exam Neurological exam: Present: CN II-XII intact, oriented X3, no focal deficits. Absent: pronater drift, facial droop, speech deficit - Skin Skin exam: Present: dry, intact Internal Medicine: Result - Labs CBC & Chem 7: 12/27/17 07:39 12/27/17 07:39 Labs: Short CBC 12/27/17 Range/Units 07:39 WBC 12.0 H (4.3-11.1) K/mcL Hgb 11.6 L (12.9-16.9) g/dL Hct 34.2 L (37.5-50.1) % Plt Count 259 (140-400) K/mcL Neutrophils # 10.2 H (1.6-8.9) K/mcL BMP 12/27/17 07:39 Sodium 129 L Potassium 3.7 Chloride 101 Carbon Dioxide 20 L BUN 29 H Creatinine 1.52 H Glucose 110 H Calcium 8.8 - ABG Interpretation ABG results: PT/INR, D-dimer PT 14.5 Seconds (9.4-12.1) H 12/26/17 01:07 - VTE Documentation of Mechanical Device: Intermittent pneumatic compression device Consult Discharge Plan - Plan Referrals: Mauricio,Cosme D, MD [Non-Partnered Physician] -
[2017-12-27] MEDS ORDERED: 0.9 % Sodium Chloride 1,000 ML IVC SCH (14:45)
--- NOTE | 2017-12-27 15:31 | Vascular/Endovasc Consult Note ---
Date of Encounter: 12/27/17 Time of Encounter: 15:23 Assessment and Plan (1) PAD (peripheral artery disease) Current Visit: Yes Status: Acute Patient has bilateral significant peripheral vascular occlusive disease. This is a long-standing process for this patient though apparently unrecognized. I'm concerned that there is a element of inflow disease because of his pelvic radiation and poorly palpable femoral pulses. There are no femoral bruits but I would anticipate there is both inflow and outflow disease in both lower extremities. Therefore I suggested that we attempt to perform a catheter-based angiogram tomorrow with the intention of performing an aortogram with bilateral lower extremity runoff and left lower extremity endovascular intervention if the anatomy is conducive to this intervention. I explained the potential risks and benefits as well as Locations and alternatives to the patient and his . He agrees to proceed. I did particular note to the patient that if he has severe aortoiliac disease secondary to his radiation therapy we may not be able to satisfactorily gain access to the arterial system and then the angiogram will need to be aborted and a CT angios and will be ordered in its place. (2) Osteomyelitis Current Visit: Yes Status: Acute Left heel osteomyelitis. Further debridement would be necessary in attempts to salvage the left foot but increased blood flow is imperative in order to this to be performed. The patient was made aware of the need for improved perfusion. He agrees to proceed with the angiogram as explained above. Qualifiers: Osteomyelitis type: unspecified type Osteomyelitis location: foot Laterality: right Qualified Code(s): M86.9 - Osteomyelitis, unspecified (3) CKD (chronic kidney disease) Current Visit: Yes Status: Acute Patient has stage III chronic kidney disease. I explained the need for kidney protection in light of the need for contrast administration. Therefore encourage patient to increase by mouth fluids today and we will begin intravenous fluids this evening and then also prescribed Mucomyst pre angiogram. Qualifiers: Chronic kidney disease stage: stage 3 (moderate) Qualified Code(s): N18.3 - Chronic kidney disease, stage 3 (moderate) - History of Present Illness Consult date: 12/27/17 Consult reason: Left foot ulcer Chief complaint: Left foot ulcer History of present illness: Mr. Bajwa is a 82 year old male With a persistent and nonhealing left foot ulcer. The patient relates that he had a Achilles tendon injury for about 3 years and he was walking with it. This deteriorated over time and was eventually seen by podiatry in [place]. A soft cast was put on the foot one week prior to surgery and then in June 2017 he had an extensive operation performed by Dr. Lieberman on his left foot for reconstruction dealing with his calcaneus and Achilles tendon. The patient states that ever since the soft cast was used he developed an ulceration on the plantar surface of his left heel. This has not healed despite medical care. He was admitted at this time for further evaluation. Noninvasive studies were performed which demonstrated an ankle-brachial index of 0.34 on the left. The right ankle pressures were noncompressible. Waveforms indicate marked and severe abnormalities of the left foot. Moderate to severe abnormalities of the right foot. The patient denies any antecedent lower extremity claudication or ischemic rest pain. He states he's never been evaluated before for his vasculature. He does note hip pain when he walks which is difficult to differentiate as to being either arthritic and/or claudicatory in origin. He is status post right hip replacement here at [facility]. It is important to note that the patient is status post bladder resection for bladder cancer approximate 20 years ago. This was performed at [facility] He was found to have a metastatic lesion after his cystectomy and underwent chemotherapy and pelvic radiation therapy. He is followed through the oncology Department at the [facility]. He also has a mail technician that he sees on an annual basis for his chronic kidney disease. Past Med Surg Social Fam HX - Past Medical History Medical history: hypertension, renal disease Psychiatric history: anxiety - Past Surgical History Surgical History: cancer surgery - Social History Smoking Status: Former smoker Smokeless Tobacco Status: No Alcohol use: none Drug use: none Medications and Allergies Donepezil [Aricept] 5 mg PO DAILY 12/25/17 [History] InFLIXimab [Remicade] 100 mg IV AD 12/25/17 [History] Losartan [Cozaar] 25 mg PO DAILY 12/25/17 [History] [place]-3/Dha/Epa/Fish Oil [Fish Oil 1,000 mg Softgel] 1 cap PO DAILY 12/25/17 [ History] Paricalcitol [Zemplar] 1 mcg PO Q72H 12/25/17 [History] Sertraline [Zoloft] 50 mg PO DAILY 12/25/17 [History] Tramadol HCl [Ultram] 50 mg PO QID PRN 12/25/17 [History] amLODIPine [Norvasc] 5 mg PO DAILY 12/25/17 [History] 3 Allergy/AdvReac Type Severity Reaction Status Date / Time cephalexin [From Keflex] Allergy Hives Verified 12/25/17 14:32 Penicillins Allergy Hives Verified 12/25/17 14:32 All Systems Review: The remainder of the systems were reviewed and are negative Exam General: Present: Conversant, No Apparent Distress, Well developed, Well nourished HEENT: Present: Atraumatic, Normocephaly, Trachea midline Neck: Absent: JVD, Lymphadenopathy, Left Carotid bruit, Right Carotid bruit, Midline deformity, Tracheal deviation Cardiac: Present: Reg Rate and Rhythm, Normal S1 and S2 Lungs: Present: Normal Breath Sounds Neuro: Present: Alert and responsive, No focal deficits noted, Cranial nerves grossly intact Abdomen: Present: Soft, Non-tender, Other (No abdominal bruits). Absent: Masses Vascular: Present: Capillary refill delayed, Pulse, absent, Color/Temperature ( His feet are pale and cool to the touch. Patient has a dressing on his left heel ulcer which was not removed.), Surgical incisions (Patient has left foot surgical incisions that are healed.), Amputation(s) (Status post left fourth toe amputation). Absent: Cyanosis, Edema Skin: Present: No rashes noted on visualized skin Consult Discharge Plan - Plan Referrals: Cosme Martínez MD [Non-Partnered Physician] -
[2017-12-27] MEDS: *HR* Acetylcysteine 20% 600 MG/3 ML ORAL SYRINGE PO SCH ×2 (17:17→21:18)
--- NOTE | 2017-12-27 17:17 | Infectious Disease Consult ---
Date of Encounter: 12/27/17 Time of Encounter: 17:12 Assessment and Plan (1) Sepsis Status: Acute Assessment and plan: The patient had three SIRS criteria on admission. Likely secondary to left heel osteomyelitis or left hip etiology. Improved. Afebrile x 24 hours. Tachycardia has resolved. WBC trending down. Blood cultures drawn 12/25/17 are NGTD x 2 sets. Qualifiers: Sepsis type: sepsis due to unspecified organism Qualified Code(s): A41.9 - Sepsis, unspecified organism (2) Osteomyelitis Status: Acute Assessment and plan: Location: Left calcaneus. Causative organism: Unclear. X-ray of the left foot shows chronic erosion over the posterior calcaneus. Bone scan showed findings consistent with OM of the calcaneus. Podiatry consulted and following. Planning to take the patient to surgery for calcanectomy if the vascular team can improve blood flow to the extremity. No cultures have been obtained. ESR 94, CRP 254. Get a wound culture. Continue Vancomycin IV. Pharmacy to dose. Goal trough ~15. Discontinue Cipro. Start Cefepime 2 grams IV Q12H. The patient has a documented "allergy" to Keflex , but reports adverse effects from medication and not true allergy. Will avoid fluoroquinolones due to the patient's history of Achilles tendon rupture with recent repair. Await further recommendations from the Podiatry and Vascular teams. Duration of treatment depends on the clinical picture. Monitor renal function and for drug toxicity and dose-adjust antibiotics. Qualifiers: Osteomyelitis type: unspecified type Osteomyelitis location: foot Laterality: right Qualified Code(s): M86.9 - Osteomyelitis, unspecified (3) Left hip pain Status: Acute Assessment and plan: Etiology unclear. X-ray negative. Not sure if this is contributing to the patient's sepsis. Will get CT scan of the left hip without contrast to evaluate. May need to get ortho to evaluate. Pain management per the primary team. (4) Ulcer of left heel Status: Acute Assessment and plan: Chronic. Podiatry consulted and following. Wound care per the podiatry team. Qualifiers: Non-pressure ulcer stage: unspecified non-pressure ulcer stage Qualified Code(s): L97.429 - Non-pressure chronic ulcer of left heel and midfoot with unspecified severity (5) CKD (chronic kidney disease) Status: Acute Assessment and plan: Serum creatinine 1.75. Not clear what the patient's baseline is. Continue to trend and monitor closely. Strict I's and O's. Dose-adjust antibiotics. Avoid nephrotoxins as able. Qualifiers: Chronic kidney disease stage: stage 3 (moderate) Qualified Code(s): N18.3 - Chronic kidney disease, stage 3 (moderate) (6) PAD (peripheral artery disease) Status: Acute Assessment and plan: ABIs consistent with moderate disease in the RLE and severe disease in the LLE. Vascular surgery consulted. Planning for angiogram tomorrow. (7) Status post left foot surgery Status: Acute Assessment and plan: Status post left foot reconstruction and Achilles tendon repair in June at [facility]. Will request records from the patient's brake mechanic. Infectious Disease HPI - Data of Consult Patient: new to practice Consult date: 12/27/17 Requesting Physician: Cori Menendez Primary Care Provider: PCP NONE - Consult Narrative Reason for consult: Left calcaneus OM History of present illness: Mr. Bajwa is a 82 year old male with a past medical history of rheumatoid arthritis currently receiving IV Remicade every 6 weeks, bladder cancer status post cystectomy in 1996 with metastasis to the pelvis followed by radiation in 1997, hypertension, hyperlipidemia, and chronic kidney disease. The patient was admitted to the hospital December 25 for ostial myelitis and fever. We are consulted December 27 for further recommendations for left calcaneus osteomyelitis. Briefly, the patient's 82-year-old male with past medical history as stated above. The patient has a long-standing history of a nonhealing ulcer to the plantar aspect of his left foot dating all the way back to 2014. He saw a brake mechanic in [place] who gave him a shoe insert that caused offloading of the wound onto his fifth toe that caused an ulceration and eventually led to a dictation of his fourth toe on the left foot. Back in 2016, he was referred to a brake mechanic of at [facility] who recommended an I&D. For about a week prior to surgery, he was placed in a soft cast which caused an ulceration to the calcaneus. He states he can follow with wound care since then. He also reports that he was recently treated with IV antibiotics for about 6 weeks, but he is unsure why or with what antibiotic he was treated. The patient presented to the emergency department with complaints of left hip pain and fever. He states he did not have any rheumatic for about a week prior to presentation. He was told by his brake mechanic that he could start to walk around on his foot so he had been increasing his activity and felt that that is why his hip pain had done worse. Upon arrival to the ER, he was febrile and tachycardic and had leukocytosis with neutrophilic predominance. His serum creatinine was noted to be at baseline for his seat Debra stage III. Lactic acid was normal. ESR was elevated at 794 with a CRP of 254. Urinalysis appeared contaminated and the patient did not have any urinary symptoms. Blood cultures were obtained 2 sets are no growth to date. He had a chest x-ray that was negative. Left foot x-ray showed chronic erosion over the posterior calcaneus concerning for chronic osteomyelitis. He had a left hip x-ray that was negative as well. Podiatry was consulted and recommended a bone scan that showed findings consistent with left calcaneus osteomyelitis. Patient was started empirically on IV Cipro and IV vancomycin and admitted to the hospital for further evaluation. Since admission, the patient has remained afebrile hemodynamically stable. His white blood cell count has been trending down. He has been afebrile since admission. He has been evaluated by podiatry who recommended vascular surgery evaluation prior to foot surgery. His ABIs showed moderate disease in the right lower extremity and severe disease in the left lower extremity. Vascular surgery did see the patient today and recommended angiogram which will be completed tomorrow. Currently, patient is on IV vancomycin and IV Cipro. Was asked to evaluate and make further recommendations. During my exam today, the patient endorses a history as stated above. He reports fevers, but denies any chills or rigors. He denies any headache or neck pain. He denies any congestion, earache, or sore throat. He denies any chest pain, shortness of breath, or cough. He denies any nausea, vomiting, diarrhea, constipation. He denies abdominal pain or urinary complaints. He states appetite is very good because he has not been very active recently. He reports mild pain at the site of the ulceration, but denies any increased swelling or redness. He denies oral thrush or additional skin lesions. The patient lives at home with his and 3 dogs. He denies any recent travel. He denies any alcohol, tobacco, or illicit drug use. 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 He was previously in the [employer] and worked in [employer]. CC: Cori Menendez Past Med Surg Social Fam HX - Past Medical History Attestation: Yes The following information was validated with the patient. Source: patient, old records reviewed, nursing notes reviewed Medical history: hypertension, RA (Receives Remicade infusions every 7 weeks), renal disease Psychiatric history: anxiety - Past Surgical History Surgical History: cancer surgery (Cystectomy 1996), orthopedic, other (Right hip arthroplasty, right shoulder surgery) - Social History Smoking Status: Former smoker Smokeless Tobacco Status: No Alcohol use: none Drug use: none Occupational status: retired Current living situation: Home, With Family Activity Level: Independent ambulation Recent Out of Country Travel Within the Last 8 Weeks: No Exposure or Possible Exposure to Illness During Travel: No Infectious Disease-CN:Meds Donepezil [Aricept] 5 mg PO DAILY 12/25/17 [History] InFLIXimab [Remicade] 100 mg IV AD 12/25/17 [History] Losartan [Cozaar] 25 mg PO DAILY 12/25/17 [History] [place]-3/Dha/Epa/Fish Oil [Fish Oil 1,000 mg Softgel] 1 cap PO DAILY 12/25/17 [ History] Paricalcitol [Zemplar] 1 mcg PO Q72H 12/25/17 [History] Sertraline [Zoloft] 50 mg PO DAILY 12/25/17 [History] Tramadol HCl [Ultram] 50 mg PO QID PRN 12/25/17 [History] amLODIPine [Norvasc] 5 mg PO DAILY 12/25/17 [History] 3 Allergy/AdvReac Type Severity Reaction Status Date / Time cephalexin [From Keflex] Allergy Hives Verified 12/25/17 14:32 Penicillins Allergy Hives Verified 12/25/17 14:32 All systems: reviewed and no additional remarkable complaints except as stated Exam - Constitutional Vitals: Temp Pulse Resp BP Pulse Ox 98.7 F 76 16 124/65 98 12/27/17 07:15 12/27/17 07:15 12/27/17 07:15 12/27/17 07:15 12/27/17 08:00 General appearance: average body habitus, cooperative, no acute distress - Head Head exam: Present: atraumatic, normal inspection, normocephalic - Eye Eye exam: Present: EOMI, normal appearance, PERRL Pupils: Present: normal accommodation - ENT ENT exam: Present: mucous membranes moist - Neck Neck exam: Present: normal inspection - Respiratory Respiratory exam: Present: CTAB. Absent: rales, respiratory distress, rhonchi, wheezes - Cardiovascular Cardiovascular exam: Present: RRR, +S1, +S2 - GI/Abdominal GI/Abdominal exam: Present: normal bowel sounds, soft. Absent: distended, tenderness - Extremities Exam Extremities exam: Present: tenderness (Left calcaneus). Absent: joint swelling , pedal edema Additional comments: Ulceration noted to the posterior aspect of the left heel. Measuring approximately 2.5 cm x 2.5 cm x 0.5 cm deep. Wound bed is moist and appears to be 100% granulation tissue. Mild erythema surrounding the ulceration. Tenderness noted with palpation of the medial aspect of the left heel. No fluctuance or drainage noted. No foul odor noted. No streaking up the leg or erythema of the foot noted at this time. - Neurological Exam Neurological exam: Present: alert, oriented X3, no focal deficits - Psychiatric Psychiatric exam: Present: normal affect, normal mood - Skin Skin exam: Present: dry, intact, normal color, warm Infectious Disease CN: Results - Labs CBC & Chem 7: 12/27/17 07:39 12/27/17 07:39 Cultures: Cultures 12/25/17 14:20 Blood Culture - Preliminary Peripheral Venipuncture No growth. 12/25/17 13:57 Blood Culture - Preliminary Peripheral Venipuncture No growth. Serology: Serology 12/25/17 Range/Units 14:10 Urine Color Yellow (Yellow) Urine Clarity Cloudy A (Clear) Urine pH 6.0 (5.0-8.0) pH Units Ur Specific [place] 1.017 (1.010-1.025) Urine Protein 30 H (Neg-Trace) mg/dL Urine Glucose (UA) Normal (Normal) mg/dL Urine Ketones Negative (Negative) mg/dL Urine Blood Small H (Negative) Urine Nitrite Negative (Negative) Urine Bilirubin Negative (Negative) Urine Urobilinogen Normal (Normal) mg/dL Ur Leukocyte Esterase Small H (Negative) Urine Microscopic RBC 5-15 H (0-3) per hpf Urine Microscopic WBC 15-30 H (0-3) per hpf Ur Squamous Epith Cells Many H (None-Few) per lpf Urine Bacteria None Seen (None-Few) per hpf Hyaline Casts None Seen (None-Few) per lpf Urine Yeast Few H (None Seen) per hpf Ur Culture Indicated? NO. A (NO) - VTE Documentation of Mechanical Device: Intermittent pneumatic compression device Consult Discharge Plan - Plan Referrals: Cosme Martínez MD [Non-Partnered Physician] - - Attending Attestation I examined this patient and my medical decision-making was reviewed with the Resident Physician. I agree with the documented findings, disposition and treatment plan as described except to the extent set forth below. This is an addendum to original port dictated by Yola Duckworth CNP. Please refer to [facility] note for full details. I agree with Yola is history of present illness and physical findings and review of system. Assessment and plan: Sepsis likely secondary to osteomyelitis but I am also concerned that there might be another source including the hip and I am concerned about possible septic arthritis of the hip. Left hip pain Ulcer of the left heel His chronic kidney disease Peripheral artery disease Status post left foot surgery Recommendations: We will repeat blood cultures 2 and we will get a CT scan of the pelvis and left hip. In the meantime continue broad-spectrum antibiotics. We will DC the levofloxacin because the patient had a history of tendon rupture and repair. We will start cefepime 2 g IV every 12 hours in the meantime and continue vancomycin with goal vancomycin trough of 15. Duration of treatment depends on the clinical picture but likely 4-6 weeks. Once cultures are negative for at least 48 hours patient will likely need a PICC line for antibiotic therapy. I did review the nuclear scan and patient will probably need orthopedics to tap the left hip because of the severe pain and I am not sure what is going on in there.
[2017-12-27] MEDS: Cefepime HCl 2,000 MG in 0.9 % Sodium Chloride Mini Bag 100 ML IVPB SCH (20:11)
[2017-12-28] MEDS: Acetaminophen 325 MG TABLET PO PRN (03:18)
[2017-12-28] MEDS: 0.9 % Sodium Chloride 1,000 ML IVC SCH ×2 (05:12→21:54)
[2017-12-28] MEDS: *HR* Heparin 5,000 UNIT/ML VIAL SQ SCH ×2 (05:13→17:49)
[2017-12-28] MEDS: Cefepime HCl 2,000 MG in 0.9 % Sodium Chloride Mini Bag 100 ML IVPB SCH ×2 (05:13→17:49)
[2017-12-28 06:25] LABS: Basophils % 0.4 %; Eosinophils % 0.4 %; Hematocrit 33.8 % (37.5-50.1); Hemoglobin 11.6 g/dL (12.9-16.9); Immature Granulocytes % 0.8 % (0-4); Lymphocytes # 0.7 K/mcL (0.6-4.6); Lymphocytes % 6.4 %; Mean Corpuscular HGB Conc 34.3 g/dL (31.6-35.5); Mean Corpuscular Hemoglobin 27.4 pg (28.0-33.3); Mean Corpuscular Volume 79.7 fL (83.0-100.0); Mean Platelet Volume 9.7 fL (9.4-12.4); Monocytes # 0.7 K/mcL (0.0-1.3); Neutrophils # 9.2 K/mcL (1.6-8.9); Platelet Count 283 K/mcL (140-400); Red Blood Count 4.24 M/mcL (4.19-5.50); Red Cell Distribution Width 15.4 % (11.5-14.5)
[2017-12-28 06:38] LABS: BUN/Creatinine Ratio 19 (6-26); Blood Urea Nitrogen 23 mg/dL (8-23); Calcium 8.6 mg/dL (8.6-10.3); Carbon Dioxide 19 mEq/L (23-29); Chloride 102 mEq/L (98-107); Glucose 111 mg/dL (70-105); Osmolality,Calculated 272 (280-300); Potassium 3.6 mEq/L (3.5-5.1); Sodium 129 mEq/L (136-145); eGFR For African Americans > 60 (> 60); eGFR For Non-African Americans 58 (> 60)
--- NOTE | 2017-12-28 10:04 | Infectious Disease Progress No ---
Date of Encounter: 12/28/17 Time of Encounter: 10:01 - Assessment and Plan (1) Sepsis Current Visit: Yes Status: Acute The patient had three SIRS criteria on admission. Likely secondary to left heel osteomyelitis or left hip etiology. Improved.Febrile overnight. Tachycardia has resolved. WBC normal. Blood cultures drawn 12/25/17 are NGTD x 2 sets. Qualifiers: Sepsis type: sepsis due to unspecified organism Qualified Code(s): A41.9 - Sepsis, unspecified organism (2) Osteomyelitis Current Visit: Yes Status: Acute Location: Left calcaneus. Causative organism: Unclear. X-ray of the left foot shows chronic erosion over the posterior calcaneus. Bone scan showed findings consistent with OM of the calcaneus. Podiatry consulted and following. Planning to take the patient to surgery for calcanectomy if the vascular team can improve blood flow to the extremity. No cultures have been obtained. ESR 94, CRP 254. Get a wound culture. Continue Vancomycin IV. Pharmacy to dose. Goal trough ~15. Continue Cefepime 2 grams IV Q12H. The patient has a documented "allergy" to Keflex, but reports adverse effects from medication and not true allergy. Will avoid fluoroquinolones due to the patient's history of Achilles tendon rupture with recent repair. Await further recommendations from the Podiatry and Vascular teams. Duration of treatment depends on the clinical picture. Monitor renal function and for drug toxicity and dose-adjust antibiotics. Qualifiers: Osteomyelitis type: unspecified type Osteomyelitis location: foot Laterality: right Qualified Code(s): M86.9 - Osteomyelitis, unspecified (3) Left hip pain Current Visit: Yes Status: Acute Etiology unclear. X-ray negative. CT scan negative for septic arthritis. May need to get ortho to evaluate. Pain management per the primary team. (4) Ulcer of left heel Current Visit: Yes Status: Acute Chronic. Podiatry consulted and following. Wound care per the podiatry team. Qualifiers: Non-pressure ulcer stage: unspecified non-pressure ulcer stage Qualified Code(s): L97.429 - Non-pressure chronic ulcer of left heel and midfoot with unspecified severity (5) CKD (chronic kidney disease) Current Visit: Yes Status: Acute Known CKD stage III. Serum creatinine normal this morning. Not clear what the patient's baseline is. Continue to trend and monitor closely. Strict I's and O's. Dose-adjust antibiotics. Avoid nephrotoxins as able. Qualifiers: Chronic kidney disease stage: stage 3 (moderate) Qualified Code(s): N18.3 - Chronic kidney disease, stage 3 (moderate) (6) PAD (peripheral artery disease) Current Visit: Yes Status: Acute ABIs consistent with moderate disease in the RLE and severe disease in the LLE. Vascular surgery consulted. Planning for angiogram later today. (7) Status post left foot surgery Current Visit: Yes Status: Acute Status post left foot reconstruction and Achilles tendon repair in June at [facility]. 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 - Subjective Interval history: Patient seen and examined. No acute events noted overnight. Patient resting quietly in bed with eyes closed. Awakens easily. Denies fevers or chills or rigors, but was noted to have a fever with a MAXIMUM TEMPERATURE of 101.6. At night. Denies chest pain, shortness of breath, or cough. Denies nausea, vomiting, diarrhea, or constipation. Denies abdominal pain or urinary complaints. He is currently nothing by mouth and states he does not feel hungry. He denies any oral thrush or new skin lesions. He states the left hip pain is improved today. He reports no pain in the left foot. He is scheduled for an angiogram later today. Infect Dis PN-Objective Data - Labs CBC & Chem 7: 12/28/17 05:11 12/28/17 05:11 Labs: Laboratory Results - last 24 hr 12/27/17 12/27/17 12/28/17 07:39 21:02 05:11 WBC 10.8 RBC 4.24 Hgb 11.6 L Hct 33.8 L MCV 79.7 L MCH 27.4 L MCHC 34.3 RDW 15.4 H Plt Count 283 MPV 9.7 Immature Gran % 0.8 Seg Neutrophils % 86.0 Lymphocytes % 6.4 Monocytes % 6.0 Eosinophils % 0.4 Basophils % 0.4 Neutrophils # 9.2 H Lymphocytes # 0.7 Monocytes # 0.7 Eosinophils # 0.0 Basophils # 0.0 Sodium 129 L Potassium 3.7 Chloride 101 Carbon Dioxide 20 L BUN 29 H Creatinine 1.52 H Est GFR ( Amer) 54 L Est GFR (Non-Af Amer) 44 L BUN/Creatinine Ratio 19 Glucose 110 H POC Glucose Calculated Osmolality 274 L Calcium 8.8 Vancomycin Trough 10 12/28/17 12/28/17 05:11 05:31 WBC RBC Hgb Hct MCV MCH MCHC RDW Plt Count MPV Immature Gran % Seg Neutrophils % Lymphocytes % Monocytes % Eosinophils % Basophils % Neutrophils # Lymphocytes # Monocytes # Eosinophils # Basophils # Sodium 129 L Potassium 3.6 Chloride 102 Carbon Dioxide 19 L BUN 23 Creatinine 1.20 Est GFR ( Amer) > 60 Est GFR (Non-Af Amer) 58 L BUN/Creatinine Ratio 19 Glucose 111 H POC Glucose 112 H Calculated Osmolality 272 L Calcium 8.6 Vancomycin Trough - Impressions Impressions Hip CT 12/27/17 17:58 IMPRESSION: 1. No acute osseous abnormality. 2. Mild left hip degenerative changes. Mild pubic symphysis and bilateral sacroiliac joint degenerative changes. Multilevel degenerative changes of the visualized lower lumbar spine. 3. Status post right total hip arthroplasty without complication. 4. Re- implantation of the bilateral ureters along the right anterolateral urinary bladder wall with moderately distended ureters. D/ / Romie Rodríguez MD / Romie Rodríguez MD Interpreting Provider: Romie Rodríguez MD Exam - Constitutional Vitals: Temp Pulse Resp BP Pulse Ox 97.6 F 74 14 142/64 98 12/28/17 07:39 12/28/17 07:39 12/28/17 07:39 12/28/17 07:39 12/28/17 08:00 General appearance: average body habitus, cooperative, no acute distress - Head Head exam: Present: atraumatic, normal inspection, normocephalic - Eye Eye exam: Present: EOMI, normal appearance, PERRL Pupils: Present: normal accommodation - ENT ENT exam: Present: mucous membranes moist - Neck Neck exam: Present: normal inspection - Respiratory Respiratory exam: Present: CTAB. Absent: rales, respiratory distress, rhonchi, wheezes - Cardiovascular Cardiovascular exam: Present: RRR, +S1, +S2 - GI/Abdominal GI/Abdominal exam: Present: normal bowel sounds, soft. Absent: distended, tenderness - Extremities Exam Extremities exam: Absent: joint swelling, pedal edema, tenderness Additional comments: Left foot dressing C/D/I. Left hip pain noted with ROM. - Neurological Exam Neurological exam: Present: alert, oriented X3, no focal deficits - Psychiatric Psychiatric exam: Present: normal affect, normal mood - Skin Skin exam: Present: dry, intact, normal color, warm - VTE Documentation of Mechanical Device: Intermittent pneumatic compression device Consult Discharge Plan - Plan Referrals: Cosme Martínez MD [Non-Partnered Physician] - - Attending Attestation I examined this patient and my medical decision-making was reviewed with the Resident Physician. I agree with the documented findings, disposition and treatment plan as described except to the extent set forth below.
[2017-12-28] MEDS: traMADol 50 MG TABLET PO PRN (10:58)
[2017-12-28] MEDS: amLODIPine 5 MG TABLET PO SCH (10:58)
[2017-12-28] MEDS: Sennosides 8.6 MG TABLET PO SCH ×2 (10:58→21:20)
[2017-12-28] MEDS ORDERED: *HR* Heparin 10,000 UNIT/10 ML VIAL ONE (12:59)
[2017-12-28] MEDS ORDERED: Heparin 1,000 UNITS/500 mL 500 ML ONE ×2 (12:59→14:49)
[2017-12-28] MEDS ORDERED: Isovue-300 200 mL Infus..BTL IV ONE (12:59)
[2017-12-28] MEDS ORDERED: 0.9 % Sodium Chloride 1,000 ML ONE ×2 (13:00→13:14)
--- NOTE | 2017-12-28 13:08 | Pre-Sedation Evaluation ---
Pre-sedation evaluation - Pre-sedation checklist Date of procedure: 12/28/17 Procedure: Abdominal aortogram with bilateral lower extremity runoff and possible endo Recent Vitals: Last Vital Signs Temp 98.6 F 12/28/17 11:32 Pulse 73 12/28/17 11:32 Resp 15 12/28/17 11:32 BP 104/57 12/28/17 11:32 Pulse Ox 96 12/28/17 11:32 H&P (including ROS) documented in medical record: Yes Previous reaction to sedatives/anesthetics: Unknown Dietary Status: NPO after Midnight Airway Assessment: Patient can open mouth completely, TMJ function normal Dentition: No loose teeth or bridges Possible difficult airway: No ASA Classification *see protocol: CLASS III-Severe systemic disease Plan of Care: Pt appropriate candidate for procedure/moderate/conscious sedation , Risks/benefits of procedure/sedation discussed w/ patient/family
[2017-12-28] MEDS ORDERED: *HR* Midazolam HCl 2 MG/2 ML VIAL ONE ×2 (13:24→14:10)
[2017-12-28] MEDS ORDERED: *HR* FentaNYL (PF) 100 MCG/2 ML VIAL ONE (13:25)
[2017-12-28] MEDS ORDERED: amLODIPine 5 MG TABLET PO SCH (14:25)
[2017-12-28] MEDS ORDERED: Ondansetron 4 MG/2 ML VIAL IVP PRN (15:06)
--- NOTE | 2017-12-28 15:06 | Procedure Note ---
Date of procedure: 12/28/17 Pre-op diagnosis: PAD/nonhealing ulcer left foot Post-op diagnosis: same Procedure: Abdominal aortogram Aortogram with bilateral lower extremity runoff Left external iliac artery stent angioplasty with 6 x 40 mm self-expanding stent Left external iliac artery balloon angioplasty with 6 x 40 mm balloon Anesthesia: MAC Surgeon: Slim Delacruz Was there an clerical assistant present: No Estimated blood loss (cc): 0 Specimen: 0 Condition: stable Disposition: floor (Patient will need future left femoral-popliteal bypass graft. Patient will need right lower extremity angioplasty)
[2017-12-28] MEDS ORDERED: 0.9 % Sodium Chloride 500 ML IVC ONE (16:18)
--- NOTE | 2017-12-28 16:18 | Invasive Diagnostic Lab Proc ---
Name: Qasim Bajwa Date of Study: 12/28/2017 Date: 1935 Ht: 168.0 in Medical Record#: [id number] Age: 82 Wt: 80 lb Gender: Male BSA: 1.9 Order #: [id number] BMI: 28.34 Physicians Performing MD: Slim Delacruz MD, FACS Referring MD: Referring MD: Staff Name Position Time In Vito Mccarthy RN Medicinal Plant Picker Josey Allen RT (R) Scrub Wellington Kasper RT (R) Monitor Yared Lacey RN Medicinal Plant Picker Indications Claudication Non-healing Ulcer Procedures Performed AORTOGRAPHY W/RUNOFF BILAT S&I ILIAC REVASC W/STENT Pre-Procedure Checklist Informed consent is complete signed and on chart. H&P is on chart. ID band is on and ID verified with patient. Patient NPO for procedure The procedure was described for the patient and questions were answered. Blood Pressure: 137/71 ECG is on chart. Rhythm: NSR Plan of Care Patient will tolerate the procedure without complications. Adequate level of comfort will be maintained. Hemodynamics will remain stable Patient will recover from procedure without complications. Respiratory function will be maintained. Cardiac rhythm will remain stable. Patient temperature will be maintained. Patient and/or family have verbalized understanding of the procedure. Patient Education Chief Complaint/Reason for Test: Peripheral angiogram Developmental Category: Geriatric (65+ years) Learning Barriers: None Education Needs: Procedure Education Method: Verbal Information Taught: Peripheral angiogram Educational Evaluation: Able to repeat information Intravenous Access Time IV Size Location DC'd Fluid/Drip Rate Units RN 13:18 18g 1 08/09" Patent On Arrival Lt Arm 0.9NaCl 25 Vito Mccarthy RN Allergies PCN (penicillin) cephalexin Penicillins Vital Signs Time BP Systolic BP Diastolic HR O2 Sats ASA 01:17 PM 137 71 80 99 01:17 PM 01:32 PM 01:47 PM 02:02 PM 02:18 PM 02:33 PM 02:48 PM 01:37 PM 145 68 83 100 01:42 PM 137 65 83 98 01:47 PM 140 63 83 99 01:52 PM 136 64 86 93 01:57 PM 141 64 83 98 02:02 PM 147 65 81 93 02:07 PM 143 65 84 96 02:12 PM 141 63 84 100 02:17 PM 133 63 87 96 02:23 PM 141 65 86 97 01:22 PM 137 71 84 01:27 PM 144 69 78 100 01:32 PM 150 75 82 98 02:27 PM 143 66 87 96 02:32 PM 143 68 83 96 02:37 PM 141 67 84 98 02:43 PM 138 63 83 98 02:47 PM 138 72 86 98 02:52 PM 145 65 86 97 02:57 PM 149 69 86 99 03:02 PM 136 74 84 98 03:07 PM 149 74 150 98 03:20 PM 151 68 79 98 03:30 PM 155 68 77 95 03:45 PM 143 69 79 97 Procedure Medications Time Medication Dose Units Method Route 01:22 PM Oxygen 2 L/min nasal cannula 01:26 PM Versed 1 mg Intravenous 01:26 PM Fentanyl 50 mcg Intravenous 01:32 PM Lidocaine 2% 10 ml Subcutaneous 01:33 PM Versed 1 mg Intravenous 02:02 PM Heparin 5000 units Intravenous 02:08 PM Fentanyl 50 mcg Intravenous 02:10 PM Versed 1 mg Intravenous 02:33 PM Benadryl 25 mg Intravenous 03:04 PM Plavix 150 mg Orally ASA Classification: CLASS III- Severe systemic disease (i.e. prior AMI, diabetes with vascular complications, morbid obesity) Darci Score Preprocedure Postprocedure Activity 2- Moves 4 extremities sustained head lift Activity 2- Moves 4 extremities sustained head lift Circulation 2- SBP +/= 20 points of pre-anesthetic level Circulation 2- SBP +/= 20 points of pre-anesthetic level Consciousness 2- Awake and alert oriented x 3 Consciousness 2- Awake and alert oriented x 3 O2 Saturation 2- Able to maintain O2 satruation of 92% on room air O2 Saturation 2- Able to maintain O2 satruation of 92% on room air Respiratory 2- Able to deep breathe and cough well Respiratory 2- Able to deep breathe and cough well Total Score 10 Total Score Contrast: Isovue 300- 150ml Contrast Amount: 128 ml Fluoro Dose: 1996 mGy Activated Clotting Time Time Drawn ACT (sec) 03:04 PM 196 Procedure Log Time Note Entered By 01:16 PM Pt arrived to section laborer 1 at 13:16 01:16 PM Vito Mccarthy RN Position: Medicinal Plant Picker Time in: 13:16 01:17 PM Josey Allen RT (R) Position: Scrub Time in: 13:16 bw: PM Wellington aKsper RT (R) Position: Monitor Time in: 13:17 :17 PM Physician arrived 13:17 : PM Meet and bonilla completed : PM Sign in performed according to hospital policy. : PM Procedure start 13:17 : PM Time: 13:17 Is patient comfortable and pain free?: Yes : PM Time: 13:17LOC: 5 = Fully awake and oriented or at pre-proc level : PM ASA Class CLASS III- Severe systemic disease (i.e. prior AMI, diabetes with vascular complications, morbid obesity) :18 PM Case delayed: No : PM Patient charges- Angio tray pack, Pulse Oximetry and ACIST tubing and transducer : PM 13:22 Oxygen at 2 L/min per nasal cannula by Vito Mccarthy RN :23 PM Hair removed from procedure site in procedure lab using clippers. Bilateral groin prepped with Chloraprep by Vito Mccarthy RN, then patient was draped. Skin intact. :24 PM Yared Lacey RN Position: Medicinal Plant Picker Time in: 13:24 :26 PM 13:26 Versed 1 mg Intravenous Given by Yared Lacey RN :26 PM 13:26 Fentanyl 50 mcg Intravenous Given by Yared Lacey RN :32 PM Time out perfomed :32 PM Time: 13:17LOC: 5 = Fully awake and oriented or at pre-proc level :32 PM Time: 13:17 Is patient comfortable and pain free?: Yes 01:33 PM 13:32 10 ml Lidocaine 2% to right groin Subcutaneous Given By Slim Delacruz MD, FACS :33 PM 13:33 Versed 1 mg Intravenous Given by Yared Lacey RN ilson 01:35 PM Access obtained in the right femoral artery by percutaneous puncture. 5 Fr. 10 cm Terumo [place] sheath placed in right femoral artery [email or web address] 01:35 PM 0.035 145cm J-wire wire utilized to assist with catheter placement [email or web address] 01:36 PM 5Fr Short pigtail catheter inserted over the wire [email or web address] 01:38 PM Abdominal aorta angiography performed in AP contrast injected 10/25 mls. [email or web address] 01:39 PM Physician reviewing films [email or web address] 01:40 PM Left femoral and Right femoral angiography performed in JOANN contrast injected 8/15 mls. [email or web address] 01:40 PM Left femoral and Right femoral angiography performed in [place] contrast injected 8/15 mls. [email or web address] 01:41 PM Setting up for stepping [email or web address] 01:41 PM Abdominal angiogram with runoff completed: 6 ml/sec for a total of 60 mls [email or web address] 01:46 PM Physician reviewing films [email or web address] 01:47 PM Time: 13:32 Is patient comfortable and pain free?: Yes [email or web address] 01:47 PM Time: 13:32LOC: 5 = Fully awake and oriented or at pre-proc level [email or web address] 01:47 PM Catheter removed [email or web address] 01:48 PM 5Fr Omniflush catheter inserted over the wire [email or web address] 01:51 PM Catheter removed [email or web address] 01:53 PM Sheath exchanged for a 6 Fr 45 cm [employer] sheath inserted into right femoral artery [email or web address] 01:55 PM 5Fr 65cm Glidecath Angled-Taper guide catheter advanced [email or web address] 01:56 PM j wire removed [email or web address] 01:56 PM 0.035 Glidewire Angled 260cm guidewire advanced. [email or web address] 01:59 PM Guide wire removed intact [email or web address] 02:01 PM glide wire advanced [email or web address] 02:02 PM Inflation device [email or web address] 02:02 PM Guide catheter removed intact [email or web address] 02:02 PM Time: 13:47LOC: 4 = Oriented but drowsy [email or web address] 02:02 PM Time: 13:47 Is patient comfortable and pain free?: Yes [email or web address] 02:03 PM 14:02 Heparin 5000 units Intravenous by Yared Lacey RN [email or web address] 02:05 PM 5 mm x 150 mm Stucco Plasterer balloon catheter placed into left ext illiac [email or web address] 02:07 PM Balloon inflated @ 12 reji for 120 seconds [email or web address] 02:08 PM 14:08 Fentanyl 50 mcg Intravenous Given by Yared Lacey RN [email or web address] 02:10 PM 14:10 Versed 1 mg Intravenous Given by Yared Lacey RN [email or web address] 02:10 PM Balloon removed intact [email or web address] 02:16 PM 6 mm x 40 mm innova self expanding stent placed in left external iliac artery Lot # [id number] [email or web address] 02:17 PM 6 mm x 40 mm Stucco Plasterer balloon catheter placed into left external iliac [email or web address] 02:18 PM Time: 14:02 Is patient comfortable and pain free?: Yes [email or web address] 02:18 PM Time: 14:02LOC: 4 = Oriented but drowsy [email or web address] 02:19 PM Balloon inflated @ 16 reji for 60 seconds [email or web address] 02:20 PM Balloon removed intact [email or web address] 02:22 PM balloon advanced [id number] [email or web address] 02:22 PM Balloon inflated @ 14 reji for 120 seconds [email or web address] 02:24 PM Balloon inflated @ 16 reji for 120 seconds [email or web address] 02:27 PM Balloon removed intact [email or web address] 02:30 PM glide cath advanced [email or web address] 02:32 PM glide wire removed [email or web address] 02:32 PM 0.035 Amplatz Super Stiff 180cm guidewire advanced. [email or web address] 02:33 PM Time: 14:18LOC: 4 = Oriented but drowsy [email or web address] 02:33 PM Time: 14:18 Is patient comfortable and pain free?: Yes [email or web address] 02:33 PM Guide wire removed intact [email or web address] 02:33 PM 14:33 Benadryl 25 mg Intravenous Given by Yared Lacey RN [email or web address] 02:34 PM glide wire advanced [email or web address] 02:43 PM glide wire removed [email or web address] 02:43 PM 0.014 Victory 14, 30 gram 300cm guidewire advanced. [email or web address] 02:44 PM glide cath removed [email or web address] 02:45 PM 4Fr 150cm Mcqueeney guide catheter advanced [email or web address] 02:48 PM Time: 14:33 Is patient comfortable and pain free?: Yes [email or web address] 02:48 PM Time: 14:33LOC: 4 = Oriented but drowsy [email or web address] 02:49 PM Guide wire removed intact [email or web address] 02:50 PM 0.014 Victory 14, 30 gram 300cm guidewire advanced. [email or web address] 02:53 PM Guide catheter removed intact [email or web address] 02:54 PM 5Fr 100cm Glidecath Angled-Taper guide catheter advanced [email or web address] 02:56 PM Guide catheter removed intact [email or web address] 02:56 PM Guide wire removed intact [email or web address] 02:57 PM Procedure completed at 14:57 [email or web address] 02:58 PM Sign Out completed: Radiation Dose 1994.71 mGy Fluoro Time: 22.4 minutes. Isovue 300- 150ml contrast 128 ml given by Slim Delacruz MD, FACS. Complications: None. Confirmed administered medications:Yes 02:58 PM Isovue 300- 150ml,2 bottle(s) used. bw 02:58 PM Sheath left in place to be pulled on floor/holding areaV+Pad bw 02:58 PM Estimated Blood Loss: less than 20cc bw 02:59 PM Post Blood Pressure: 149/69 [email or web address] 02:59 PM Post EKG: NSR [email or web address] 02:59 PM drawing act [email or web address] 02:59 PM Information taught: Peripheral angiogram and LITERARY AGENT bw 02:59 PM Education needs: Procedure, Plan of Care, and Disease Process bw 02:59 PM Learning barriers: Sedated bw 02:59 PM Education methods: Verbal bw 02:59 PM Education evaluation: Needs further instruction 03:02 PM Site status No bleeding/hematoma - Rt Groin as reported by Josey Allen RT (R) at 15:01 bw 03:02 PM Opsite applied bw 03:02 PM Delay to floor: Bed availability bw 03:02 PM Complications: None 03:02 PM Fluoro Time: 22.4 minutes 03:02 PM Isovue 300- 150ml contrast 128 ml given by Slim Delacruz MD, FACS bw 03:02 PM Radiation Dose 1994.71 mGy 03:03 PM Time: 14:48 Is patient comfortable and pain free?: Yes bw 03:03 PM Diagram Region: Lower Extremity Arteries Anatomical Region: LE-ArtCTO in Left External Iliac Intervention done: 1 (1=yes, 0=no) [email or web address] 03:04 PM Time: 15:04 Plavix 150 mg Orally Given by Yared Lacey RN 03:04 PM Diagram Region: Lower Extremity Arteries Anatomical Region: LE-Art MANAGER MANUFACTURING in Left Superficial Femoral Intervention done: 0 (1=yes, 0=no) [email or web address] 03:05 PM Diagram Region: Lower Extremity Arteries Anatomical Region: LE-Art90% Lesion in Distal Right Superficial Femoral Intervention done: 0 (1=yes, 0=no) [email or web address] 03:05 PM Diagram Region: Lower Extremity Arteries Anatomical Region: LE-Art MANAGER MANUFACTURING in Right Ant. Tibial/Right Peroneal Intervention done: 0 (1=yes, 0=no) [email or web address] 03:06 PM Diagram Region: Lower Extremity Arteries Anatomical Region: LE-Art MANAGER MANUFACTURING in Left Ant. Tibial Intervention done: 0 (1=yes, 0=no) [email or web address] 03:07 PM Family stayed in pt's room. [email or web address] 01:15 PM PVIStat 01:21 PM Vitals capture started with the following parameters, Patient=Adult, Interval=5 min, Initial Llcvhsmg=480 mmHg, Deflation Rate=3 mmHg, Cuff placed on Right Arm 01:22 PM HR=84 bpm, SSZX=289/71 mmhg, Resp=20 B/min 01:25 PM Recorded ECG: HR=78 Condition=Condition 1 01:27 PM HR=78 bpm, FIMH=516/69 mmhg, QrS8=203.0 %, Resp=24 B/min 01:29 PM Pressure channel 1 zero failed. 01:29 PM Pressure channel 1 zeroed. 01:32 PM HR=82 bpm, BYJS=191/75 mmhg, SpO2=98.0 %, Resp=10 B/min 01:37 PM HR=83 bpm, AKEM=599/68 mmhg, UoR3=868.0 %, Resp=13 B/min 01:42 PM HR=83 bpm, CPED=822/65 mmhg, SpO2=98.0 %, Resp=27 B/min 01:47 PM HR=83 bpm, KGAV=472/63 mmhg, SpO2=99.0 %, Resp=25 B/min 02:47 PM HR=86 bpm, FPVC=385/72 mmhg, SpO2=98.0 %, Resp=9 B/min 02:52 PM HR=86 bpm, YDDX=460/65 mmhg, SpO2=97.0 %, Resp=12 B/min 02:57 PM HR=86 bpm, ANOO=586/69 mmhg, SpO2=99.0 %, Resp=26 B/min 03:02 PM HR=84 bpm, KSMB=249/74 mmhg, SpO2=98.0 %, Resp=26 B/min 03:07 PM JX=461 bpm, KGOK=152/74 mmhg, SpO2=98.0 %, Resp=16 B/min 03:07 PM Vitals capture stopped. 01:52 PM HR=86 bpm, ZJID=022/64 mmhg, SpO2=93.0 %, Resp=26 B/min 01:57 PM HR=83 bpm, XXIF=242/64 mmhg, SpO2=98.0 %, Resp=18 B/min 02:02 PM HR=81 bpm, OXWY=419/65 mmhg, SpO2=93.0 %, Resp=17 B/min 02:07 PM HR=84 bpm, FKKG=848/65 mmhg, SpO2=96.0 %, Resp=15 B/min 02:12 PM HR=84 bpm, LYFE=914/63 mmhg, GdQ4=052.0 %, Resp=23 B/min 02:17 PM HR=87 bpm, MIAS=040/63 mmhg, SpO2=96.0 %, Resp=10 B/min 02:23 PM HR=86 bpm, YVAH=314/65 mmhg, SpO2=97.0 %, Resp=10 B/min 02:27 PM HR=87 bpm, ICOW=282/66 mmhg, SpO2=96.0 %, Resp=13 B/min 02:32 PM HR=83 bpm, JRMM=630/68 mmhg, SpO2=96.0 %, Resp=9 B/min 02:37 PM HR=84 bpm, BGOU=206/67 mmhg, SpO2=98.0 %, Resp=12 B/min 02:43 PM HR=83 bpm, NVMU=976/63 mmhg, SpO2=98.0 %, Resp=12 B/min 03:09 PM Report given to daren BECK. Pt taken to Holding room, Room # 4 15:09 [email or web address] 03:09 PM Pt taken to Holding room Room# 4 [email or web address] 03:11 PM Patient out of room 15:11 [email or web address] 03:52 PM Activity: 2Circulation: 2Consciousness: 2O2 Saturation: 2Respiration: 2 [email or web address] 04:12 PM Report given to rishi BECK. Pt taken to , Room # 4 16:12 tsites 04:13 PM Delay to floor: Bed availability tsites 04:13 PM Pt taken to Room# 4 tsites Peripheral Anatomy Vessel Pathology Lesion Stenosis Aneurysm Diameter Thrombus Type Right Superficial Femoral Lesion 90 Post Procedure Information Blood Pressure: 149/69 mmHg Rhythm: NSR Post procedure instructions given Report Given To: farida Chau Checks Time Location Status Staff Sheath In? Note 3:01:00 PM Rt Groin No bleeding/hematoma Josey Allen RT (R) 12/28/2017 3:20:00 PM Rt Groin No bleeding/ No Hematoma Sites, Yohana RT (R) 12/28/2017 3:30:00 PM Rt Groin No bleeding/ No Hematoma Sites, Yohana RT (R) 12/28/2017 3:45:00 PM Rt Groin No bleeding/ No Hematoma Sites, Yohana RT (R) Pulses Time Site Pre Procedure Post Procedure Note 12/28/2017 1:25:00 PM Bilateral DP & PT Doppler 12/28/2017 3:20:00 PM Bilateral DP & PT Doppler 12/28/2017 3:30:00 PM Bilateral DP & PT Doppler 12/28/2017 3:45:00 PM Bilateral DP & PT Doppler Updated by Yohana Lorenzo RT (R) on 12/28/2017 4:13:25 PM Yohana Lorenzo RT electronically signed on 12/28/2017 4:13:57 PM with status of Final
[2017-12-28] MEDS ORDERED: *HR* Atropine Sulfate 1 MG/10 ML SYRINGE ONE (17:05)
--- NOTE | 2017-12-28 18:09 | Event Note ---
Date of Encounter: 12/28/17 Time of Encounter: 17:35 plan left femoral-popliteal bypass on Sunday AM. left foot demonstrated improved color and improved cap refill and improved left pedal doppler signals post left Ext iliac stent /balloon angioplasty.
--- NOTE | 2017-12-28 18:19 | Internal Med Progress Note ---
Date of Encounter: 12/28/17 Time of Encounter: 18:17 - Assessment and plan (1) Sepsis Current Visit: Yes Status: Acute Assessment and plan: Secondary to osteomyeltitis of left foot SIRS 2 criteria on admission, leukocytosis, fever WBC improving, patient has remained afebrile - ID consulted recommendations appreciated; antibiotics changed to vancomycin and cefepime. - Podiatry consulted, recommendations appreciated. - Patient had external iliac artery stent and balloon angioplasty to improve wound healing today. Qualifiers: Sepsis type: sepsis due to unspecified organism Qualified Code(s): A41.9 - Sepsis, unspecified organism (2) Osteomyelitis Current Visit: Yes Status: Acute Assessment and plan: Of left foot, seen on bone scan, has non healing ulcer of left foot after surgery. On Cefepime and vancomycin ID consulted, recommendations appreciated. Patient had TRIP done that consistent with PAD. Today had stent and balloon angioplasty of external iliac artery to promote wound healing. Qualifiers: Osteomyelitis type: unspecified type Osteomyelitis location: foot Laterality: right Qualified Code(s): M86.9 - Osteomyelitis, unspecified (3) Hypo-osmolality and hyponatremia Current Visit: Yes Status: Acute Assessment and plan: most likely secondary to volume depletion and dehydration in the setting of underlying infectious process Follow up urine studies Continue normal saline (4) Anemia Current Visit: Yes Status: Acute Assessment and plan: most likely secondary to chronic disease, hemoglobin stable, Iron studies pending. Qualifiers: Anemia type: due to chronic kidney disease Chronic kidney disease stage: stage 3 (moderate) Qualified Code(s): N18.3 - Chronic kidney disease, stage 3 (moderate); D63.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 (5) CKD (chronic kidney disease) Current Visit: Yes Status: Acute Assessment and plan: Stage III CKD Continue to use nephroprotective strategy and renally dose medications. Creatinine significant improvement, better than last known baseline. Qualifiers: Chronic kidney disease stage: stage 3 (moderate) Qualified Code(s): N18.3 - Chronic kidney disease, stage 3 (moderate) (6) DVT prophylaxis Current Visit: Yes Status: Acute Assessment and plan: Continue SQ heparin - Time Spent With Patient Total time spent is greater than 50% in coordination of care (as documented) at patient's floor/unit and/or counseling patient: - Subjective Interval history: Patient has returned from left external iliac artery stent and balloo angioplasty. Doing well. Denies any pain, fevers/chills, n/v. - Constitutional Vitals: Temp Pulse Resp BP Pulse Ox 98.2 F 81 19 150/74 95 12/28/17 16:38 12/28/17 17:40 12/28/17 16:38 12/28/17 17:35 12/28/17 16:38 General appearance: Present: A&O X 3 Exam: - Head Head exam: Present: atraumatic, normocephalic - Eye Eye exam: Present: PERRL, conjuntiva pink, sclera anicteric Pupils: Present: PERRL - Neck Neck exam general surgery: Present: supple, trachea midline. Absent: lymphadenopathy - Respiratory Respiratory exam: Present: CTAB. Absent: accessory muscle use, rales, rhonchi, wheezes - Cardiovascular Cardiovascular exam: Present: RRR, +S1, +S2. Absent: diastolic murmur, gallop, rubs, systolic murmur - GI/Abdominal GI/Abdominal exam: Present: normal bowel sounds, soft, no peritoneal signs. Absent: distended, tenderness - Extremities Exam Extremities exam: Present: warm, radial pulses palpable and symmetrical. Absent : calf tenderness, cyanotic, pedal edema Additional comments: Dressing of left foot clean, dry, in tact. Lower portion of foot is warm. - Neurological Exam Neurological exam: Present: CN II-XII intact, oriented X3, no focal deficits. Absent: pronater drift, facial droop, speech deficit - Skin Skin exam: Present: dry, intact Internal Medicine: Result - Labs CBC & Chem 7: 12/28/17 05:11 12/28/17 05:11 Labs: Short CBC 12/28/17 Range/Units 05:11 WBC 10.8 (4.3-11.1) K/mcL Hgb 11.6 L (12.9-16.9) g/dL Hct 33.8 L (37.5-50.1) % Plt Count 283 (140-400) K/mcL Neutrophils # 9.2 H (1.6-8.9) K/mcL BMP 12/28/17 05:11 Sodium 129 L Potassium 3.6 Chloride 102 Carbon Dioxide 19 L BUN 23 Creatinine 1.20 Glucose 111 H Calcium 8.6 - ABG Interpretation ABG results: PT/INR, D-dimer PT 14.5 Seconds (9.4-12.1) H 12/26/17 01:07 - Impressions Impressions Hip CT 12/27/17 17:58 IMPRESSION: 1. No acute osseous abnormality. 2. Mild left hip degenerative changes. Mild pubic symphysis and bilateral sacroiliac joint degenerative changes. Multilevel degenerative changes of the visualized lower lumbar spine. 3. Status post right total hip arthroplasty without complication. 4. Re- implantation of the bilateral ureters along the right anterolateral urinary bladder wall with moderately distended ureters. D/ / Romie Rodríguez MD / Romie Rodríguez MD Interpreting Provider: Romie Rordíguez MD - VTE Documentation of Mechanical Device: Intermittent pneumatic compression device Consult Discharge Plan - Plan Referrals: Cosme Martínez MD [Non-Partnered Physician] - 01/02/18 10:45 am Slim Delacruz MD [Partnered Physician] - 01/23/18 11:45 am
[2017-12-28] MEDS: *HR* Acetylcysteine 20% 600 MG/3 ML ORAL SYRINGE PO SCH (21:19)
[2017-12-28] MEDS: *HR* HYDROcodone/Acet 5/325 mg TABLET PO PRN (21:24)
[2017-12-29 05:10] LABS: Basophils % 0.2 %; Eosinophils # 0.1 K/mcL (0.0-0.6); Eosinophils % 0.6 %; Hemoglobin 10.8 g/dL (12.9-16.9); Immature Granulocytes % 0.7 % (0-4); Lymphocytes # 0.7 K/mcL (0.6-4.6); Lymphocytes % 8.2 %; Mean Corpuscular HGB Conc 34.8 g/dL (31.6-35.5); Mean Corpuscular Hemoglobin 27.6 pg (28.0-33.3); Mean Corpuscular Volume 79.1 fL (83.0-100.0); Monocytes # 0.5 K/mcL (0.0-1.3); Monocytes % 6.4 %; Neutrophils # 7.1 K/mcL (1.6-8.9); Platelet Count 257 K/mcL (140-400); Red Blood Count 3.92 M/mcL (4.19-5.50); Red Cell Distribution Width 15.5 % (11.5-14.5); Segmented Neutrophils % 83.9 %
[2017-12-29 05:13] LABS: BUN/Creatinine Ratio 17 (6-26); Blood Urea Nitrogen 18 mg/dL (8-23); Calcium 8.3 mg/dL (8.6-10.3); Carbon Dioxide 20 mEq/L (23-29); Chloride 104 mEq/L (98-107); Glucose 96 mg/dL (70-105); Osmolality,Calculated 278 (280-300); Potassium 3.6 mEq/L (3.5-5.1); Sodium 133 mEq/L (136-145); eGFR For African Americans > 60 (> 60); eGFR For Non-African Americans > 60 (> 60)
[2017-12-29] MEDS: *HR* Heparin 5,000 UNIT/ML VIAL SQ SCH ×2 (05:35→17:20)
[2017-12-29] MEDS: Cefepime HCl 2,000 MG in 0.9 % Sodium Chloride Mini Bag 100 ML IVPB SCH ×2 (05:35→17:21)
[2017-12-29] MEDS: *HR* Acetylcysteine 20% 600 MG/3 ML ORAL SYRINGE PO SCH (07:52)
--- NOTE | 2017-12-29 08:08 | Internal Med Progress Note ---
Date of Encounter: 12/29/17 Time of Encounter: 08:05 - Assessment and plan (1) Sepsis Current Visit: Yes Status: Acute Assessment and plan: Secondary to osteomyeltitis of left foot SIRS 2 criteria on admission, leukocytosis, fever - ID consulted recommendations appreciated; antibiotics changed to vancomycin and cefepime. - Podiatry consulted, recommendations appreciated. - Patient had external iliac artery stent angioplasty and balloon angioplasty on 12/28 to improve wound healing - Blood cultures 12/25 NGTD 2 sets Sepsis resolved Qualifiers: Sepsis type: sepsis due to unspecified organism Qualified Code(s): A41.9 - Sepsis, unspecified organism (2) Osteomyelitis Current Visit: Yes Status: Acute Assessment and plan: Of left foot, seen on bone scan, has non healing ulcer of left foot after surgery. ID consulted, recommendations appreciated.Patient had TRIP done that consistent with PAD. 12/28 underwent Balloon angioplasty of external iliac artery to promote wound healing. On Cefepime and vancomycin Qualifiers: Osteomyelitis type: unspecified type Osteomyelitis location: foot Laterality: right Qualified Code(s): M86.9 - Osteomyelitis, unspecified (3) PAD (peripheral artery disease) Current Visit: Yes Status: Acute Assessment and plan: Vascular Surgery following, recommendations appreciated 12/28 had balloon and stent angioplasty of left external iliac artery, tolerated without issue. (4) Hypo-osmolality and hyponatremia Current Visit: Yes Status: Acute Assessment and plan: most likely secondary to volume depletion and dehydration in the setting of underlying infectious process Now improving to 133. Patient now on diet, hold IV fluids. (5) Anemia Current Visit: Yes Status: Acute Assessment and plan: most likely secondary to chronic disease, hemoglobin stable, Qualifiers: Anemia type: due to chronic kidney disease Chronic kidney disease stage: stage 3 (moderate) Qualified Code(s): N18.3 - Chronic kidney disease, stage 3 (moderate); D63.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 (6) CKD (chronic kidney disease) Current Visit: Yes Status: Acute Assessment and plan: Stage III CKD Continue to use nephroprotective strategy and renally dose medications. Creatinine significant improvement, better than last known baseline. Suspect that he had an EVANS that resolved. Resume Losartan tomorrow, was held today bc patient received IV contrast and is on vancomycin. Qualifiers: Chronic kidney disease stage: stage 3 (moderate) Qualified Code(s): N18.3 - Chronic kidney disease, stage 3 (moderate) (7) DVT prophylaxis Current Visit: Yes Status: Acute Assessment and plan: Continue SQ heparin - Time Spent With Patient Total time spent is greater than 50% in coordination of care (as documented) at patient's floor/unit and/or counseling patient: - Subjective Interval history: Patient had left external iliac artery stent and balloo angioplasty 12/28. Doing well. Denies any pain leg pain, fevers/chills, n/v. - Constitutional Vitals: Temp Pulse Resp BP Pulse Ox 98.0 F 80 18 140/70 97 12/29/17 07:23 12/29/17 07:23 12/29/17 07:23 12/29/17 07:23 12/29/17 07:23 General appearance: Present: A&O X 3 - Head Head exam: Present: atraumatic, normocephalic - Eye Eye exam: Present: PERRL, conjuntiva pink, sclera anicteric Pupils: Present: PERRL - Neck Neck exam general surgery: Present: supple, trachea midline. Absent: lymphadenopathy - Respiratory Respiratory exam: Present: CTAB. Absent: accessory muscle use, rales, rhonchi, wheezes - Cardiovascular Cardiovascular exam: Present: RRR, +S1, +S2. Absent: diastolic murmur, gallop, rubs, systolic murmur - GI/Abdominal GI/Abdominal exam: Present: normal bowel sounds, soft, no peritoneal signs. Absent: distended, tenderness - Extremities Exam Extremities exam: Present: pedal edema (left; trace), warm, radial pulses palpable and symmetrical (right tibial pulse faintly palpable, left tibial pulse limited from edema). Absent: calf tenderness, cyanotic - Neurological Exam Neurological exam: Present: CN II-XII intact, oriented X3, no focal deficits. Absent: pronater drift, facial droop, speech deficit - Skin Skin exam: Present: dry, intact Internal Medicine: Result - Labs CBC & Chem 7: 12/29/17 04:38 12/29/17 04:38 Labs: Short CBC 12/29/17 Range/Units 04:38 WBC 8.4 (4.3-11.1) K/mcL Hgb 10.8 L (12.9-16.9) g/dL Hct 31.0 L (37.5-50.1) % Plt Count 257 (140-400) K/mcL Neutrophils # 7.1 (1.6-8.9) K/mcL BMP 12/29/17 04:38 Sodium 133 L Potassium 3.6 Chloride 104 Carbon Dioxide 20 L BUN 18 Creatinine 1.09 Glucose 96 Calcium 8.3 L - ABG Interpretation ABG results: PT/INR, D-dimer PT 14.5 Seconds (9.4-12.1) H 12/26/17 01:07 - VTE Documentation of Mechanical Device: Intermittent pneumatic compression device Consult Discharge Plan - Plan Referrals: Cosme Martínez MD [Non-Partnered Physician] - 01/02/18 10:45 am Slim Delacruz MD [Partnered Physician] - 01/23/18 11:45 am
[2017-12-29] MEDS: Sennosides 8.6 MG TABLET PO SCH ×2 (08:20→20:59)
--- NOTE | 2017-12-29 12:47 | Vascular/[facility] Progress Note ---
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 He reports his left leg is feeling better. He has a stable left heel ulcer. He has a left superficial femoral artery occlusion. He will be scheduled for a left femoral to popliteal artery bypass graft on 01/01/2018. The risks, benefits and alternatives were discussed were answered. He expressed understanding and wishes to proceed. - Subjective Interval history: The patient reports that his leg is feeling better today. He reports adequate pain control. He denies chest or shortness breath. Vital Signs, Last 4 Hours Temp Pulse Resp BP Pulse Ox 12/29/17 11:51 98.3 F 83 18 149/70 97 - Physical Examination General: Present: Conversant Cardiac: Present: Reg Rate and Rhythm Lungs: Present: Normal Breath Sounds Neuro: Present: Alert and responsive, No focal deficits noted Vascular: Present: Normal capillary refill, Other (No hematoma). Absent: Cyanosis, Edema Abdomen: Present: Soft, Non-tender Skin: Present: Wound/ulcer(s) (Left heel ulcer about erythema or drainage.) - VTE Documentation of Mechanical Device: Intermittent pneumatic compression device Results 12/29/17 04:38 12/29/17 04:38 Lab Results, Last 24 hours 12/29/17 12/29/17 04:38 04:38 WBC 8.4 Hgb 10.8 L Hct 31.0 L Plt Count 257 Sodium 133 L Potassium 3.6 Chloride 104 Carbon Dioxide 20 L BUN 18 Creatinine 1.09 Glucose 96 Calcium 8.3 L Consult Discharge Plan - Plan Referrals: Cosme Martínez MD [Non-Partnered Physician] - 01/02/18 10:45 am Slim Delacruz MD [Partnered Physician] - 01/23/18 11:45 am
[2017-12-29] MEDS: *HR* HYDROcodone/Acet 5/325 mg TABLET PO PRN ×2 (18:01→23:15)
[2017-12-30] MEDS: *HR* Heparin 5,000 UNIT/ML VIAL SQ SCH ×2 (05:26→16:54)
[2017-12-30] MEDS: Cefepime HCl 2,000 MG in 0.9 % Sodium Chloride Mini Bag 100 ML IVPB SCH ×2 (05:26→16:54)
[2017-12-30 05:32] LABS: Basophils % 0.3 %; Eosinophils # 0.1 K/mcL (0.0-0.6); Hematocrit 30.3 % (37.5-50.1); Hemoglobin 10.6 g/dL (12.9-16.9); Immature Granulocytes % 0.8 % (0-4); Lymphocytes # 0.6 K/mcL (0.6-4.6); Lymphocytes % 6.8 %; Mean Corpuscular Hemoglobin 27.6 pg (28.0-33.3); Mean Corpuscular Volume 78.9 fL (83.0-100.0); Monocytes # 0.7 K/mcL (0.0-1.3); Monocytes % 8.1 %; Neutrophils # 7.6 K/mcL (1.6-8.9); Nucleated Red Blood Cells 0.2 /100 WBC (0); Platelet Count 287 K/mcL (140-400); Red Blood Count 3.84 M/mcL (4.19-5.50); Red Cell Distribution Width 15.4 % (11.5-14.5)
[2017-12-30 05:52] LABS: BUN/Creatinine Ratio 15 (6-26); Blood Urea Nitrogen 18 mg/dL (8-23); Calcium 8.6 mg/dL (8.6-10.3); Carbon Dioxide 24 mEq/L (23-29); Chloride 103 mEq/L (98-107); Glucose 124 mg/dL (70-105); Osmolality,Calculated 275 (280-300); Potassium 3.7 mEq/L (3.5-5.1); Sodium 131 mEq/L (136-145); eGFR For African Americans > 60 (> 60); eGFR For Non-African Americans 58 (> 60)
--- NOTE | 2017-12-30 07:34 | Internal Med Progress Note ---
Date of Encounter: 12/30/17 Time of Encounter: 07:45 - Assessment and plan (1) Sepsis Current Visit: Yes Status: Acute Assessment and plan: Secondary to osteomyeltitis of left foot SIRS 2 criteria on admission, leukocytosis, fever - ID consulted recommendations appreciated; antibiotics changed to vancomycin and cefepime. - Podiatry consulted, recommendations appreciated. - Patient had external iliac artery stent angioplasty and balloon angioplasty on 12/28 to improve wound healing - Blood cultures 12/25 NGTD 2 sets Sepsis resolved Qualifiers: Sepsis type: sepsis due to unspecified organism Qualified Code(s): A41.9 - Sepsis, unspecified organism (2) Osteomyelitis Current Visit: Yes Status: Acute Assessment and plan: Of left foot, seen on bone scan, has non healing ulcer of left foot after surgery. ID consulted, recommendations appreciated.Patient had TRIP done that consistent with PAD. 12/28 underwent Balloon angioplasty of external iliac artery to promote wound healing. Continue Cefepime and vancomycin Qualifiers: Osteomyelitis type: unspecified type Osteomyelitis location: foot Laterality: right Qualified Code(s): M86.9 - Osteomyelitis, unspecified (3) PAD (peripheral artery disease) Current Visit: Yes Status: Acute Assessment and plan: Vascular Surgery following, recommendations appreciated 12/28 had balloon and stent angioplasty of left external iliac artery, tolerated without issue. Planned for left fem-pop bypass 01/01 (4) Hypo-osmolality and hyponatremia Current Visit: Yes Status: Acute Assessment and plan: most likely secondary to volume depletion and dehydration in the setting of underlying infectious process fluctuating in lower 130s, currentl 131. Could be chronic, possibly medication related such as Zoloft. Patient now on diet, hold IV fluids. Would prefer to resume Losartan to improve HTN but this could precipitate hyponatremia. Instead will increase Norvasc dose. (5) Anemia Current Visit: Yes Status: Acute Assessment and plan: most likely secondary to chronic disease, hemoglobin stable, Qualifiers: Anemia type: due to chronic kidney disease Chronic kidney disease stage: stage 3 (moderate) Qualified Code(s): N18.3 - Chronic kidney disease, stage 3 (moderate); D63.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 (6) CKD (chronic kidney disease) Current Visit: Yes Status: Acute Assessment and plan: Stage III CKD Continue to use nephroprotective strategy and renally dose medications. Creatinine significant improvement, better than last known baseline. Suspect that he had an EVANS that resolved. Qualifiers: Chronic kidney disease stage: stage 3 (moderate) Qualified Code(s): N18.3 - Chronic kidney disease, stage 3 (moderate) (7) Hypertension Current Visit: Yes Status: Acute Assessment and plan: Chronic condition, imperative to optimize patient's BP Would resume losartan but patient having hyponatremia, which could worsen with that. Will instead increase Norvasc to 10 mg daily and monitor. Qualifiers: Hypertension type: essential hypertension Qualified Code(s): I10 - Essential (primary) hypertension (8) DVT prophylaxis Current Visit: Yes Status: Acute Assessment and plan: Continue SQ heparin - Time Spent With Patient Total time spent is greater than 50% in coordination of care (as documented) at patient's floor/unit and/or counseling patient: - Subjective Interval history: Patient had left external iliac artery stent and balloo angioplasty 12/28. Doing well. Denies any pain leg pain, fevers/chills, n/v. States having some swelling but minimal in left foot - Constitutional Vitals: Temp Pulse Resp BP Pulse Ox 97.8 F 85 20 134/73 97 12/30/17 07:27 12/30/17 07:27 12/30/17 07:27 12/30/17 07:27 12/30/17 07:27 General appearance: Present: A&O X 3 - Head Head exam: Present: atraumatic, normocephalic - Eye Eye exam: Present: PERRL, conjuntiva pink, sclera anicteric Pupils: Present: PERRL - Neck Neck exam general surgery: Present: supple, trachea midline. Absent: lymphadenopathy - Respiratory Respiratory exam: Present: CTAB. Absent: accessory muscle use, rales, rhonchi, wheezes - Cardiovascular Cardiovascular exam: Present: RRR, +S1, +S2. Absent: diastolic murmur, gallop, rubs, systolic murmur - GI/Abdominal GI/Abdominal exam: Present: normal bowel sounds, soft, no peritoneal signs. Absent: distended, tenderness - Extremities Exam Extremities exam: Present: warm, radial pulses palpable and symmetrical. Absent : calf tenderness, cyanotic, pedal edema - Neurological Exam Neurological exam: Present: CN II-XII intact, oriented X3, no focal deficits. Absent: pronater drift, facial droop, speech deficit - Skin Skin exam: Present: dry, intact Internal Medicine: Result - Labs CBC & Chem 7: 12/30/17 05:20 12/30/17 05:20 Labs: Short CBC 12/30/17 Range/Units 05:20 WBC 9.2 (4.3-11.1) K/mcL Hgb 10.6 L (12.9-16.9) g/dL Hct 30.3 L (37.5-50.1) % Plt Count 287 (140-400) K/mcL Neutrophils # 7.6 (1.6-8.9) K/mcL BMP 12/30/17 05:20 Sodium 131 L Potassium 3.7 Chloride 103 Carbon Dioxide 24 BUN 18 Creatinine 1.20 Glucose 124 H Calcium 8.6 - ABG Interpretation ABG results: PT/INR, D-dimer PT 14.5 Seconds (9.4-12.1) H 12/26/17 01:07 - VTE Documentation of Mechanical Device: Intermittent pneumatic compression device Consult Discharge Plan - Plan Referrals: Cosme Martínez MD [Non-Partnered Physician] - 01/02/18 10:45 am Slim Delacruz MD [Partnered Physician] - 01/23/18 11:45 am
[2017-12-30] MEDS: traMADol 50 MG TABLET PO PRN (08:05)
[2017-12-30] MEDS: Sennosides 8.6 MG TABLET PO SCH ×2 (08:06→21:45)
[2017-12-30] MEDS: amLODIPine 5 MG TABLET PO SCH (08:06)
[2017-12-30] MEDS: Acetaminophen 325 MG TABLET PO PRN (14:39)
[2017-12-30] MEDS: *HR* HYDROcodone/Acet 5/325 mg TABLET PO PRN (20:31)
[2017-12-31] MEDS: *HR* HYDROcodone/Acet 5/325 mg TABLET PO PRN ×3 (01:49→20:55)
[2017-12-31] MEDS: Cefepime HCl 2,000 MG in 0.9 % Sodium Chloride Mini Bag 100 ML IVPB SCH ×2 (05:56→16:15)
[2017-12-31] MEDS: *HR* Heparin 5,000 UNIT/ML VIAL SQ SCH ×2 (05:58→16:19)
[2017-12-31 06:34] LABS: Basophils % 0.4 %; Eosinophils # 0.2 K/mcL (0.0-0.6); Eosinophils % 2.4 %; Hemoglobin 11.7 g/dL (12.9-16.9); Lymphocytes # 1.4 K/mcL (0.6-4.6); Lymphocytes % 13.7 %; Mean Corpuscular HGB Conc 34.4 g/dL (31.6-35.5); Mean Corpuscular Hemoglobin 27.5 pg (28.0-33.3); Mean Platelet Volume 8.8 fL (9.4-12.4); Monocytes # 0.8 K/mcL (0.0-1.3); Monocytes % 7.5 %; Neutrophils # 7.4 K/mcL (1.6-8.9); Platelet Count 369 K/mcL (140-400); Red Blood Count 4.25 M/mcL (4.19-5.50); Red Cell Distribution Width 15.6 % (11.5-14.5)
[2017-12-31 06:50] LABS: BUN/Creatinine Ratio 15 (6-26); Blood Urea Nitrogen 18 mg/dL (8-23); Calcium 8.8 mg/dL (8.6-10.3); Carbon Dioxide 25 mEq/L (23-29); Chloride 100 mEq/L (98-107); Glucose 109 mg/dL (70-105); Osmolality,Calculated 276 (280-300); Potassium 3.4 mEq/L (3.5-5.1); Sodium 132 mEq/L (136-145); eGFR For African Americans > 60 (> 60); eGFR For Non-African Americans 59 (> 60)
[2017-12-31] MEDS: traMADol 50 MG TABLET PO PRN (08:52)
[2017-12-31] MEDS: amLODIPine 5 MG TABLET PO SCH (08:52)
[2017-12-31] MEDS: Sennosides 8.6 MG TABLET PO SCH ×2 (08:52→20:55)
--- NOTE | 2017-12-31 10:08 | Internal Med Progress Note ---
Date of Encounter: 12/31/17 Time of Encounter: 10:06 - Assessment and plan (1) Sepsis Current Visit: Yes Status: Acute Assessment and plan: Secondary to osteomyeltitis of left foot SIRS 2 criteria on admission, leukocytosis, fever - ID consulted recommendations appreciated; antibiotics changed to vancomycin and cefepime. - Podiatry consulted, recommendations appreciated. - Patient had external iliac artery stent angioplasty and balloon angioplasty on 12/28 to improve wound healing - Blood cultures 12/25 NGTD 2 sets - Sepsis is resolved Qualifiers: Sepsis type: sepsis due to unspecified organism Qualified Code(s): A41.9 - Sepsis, unspecified organism (2) Osteomyelitis Current Visit: Yes Status: Acute Assessment and plan: Of left foot, seen on bone scan, has non healing ulcer of left foot after surgery. ID consulted, recommendations appreciated. Patient had TRIP done that consistent with PAD. 12/28 underwent Balloon angioplasty of external iliac artery to promote wound healing. Plan as above Qualifiers: Osteomyelitis type: unspecified type Osteomyelitis location: foot Laterality: right Qualified Code(s): M86.9 - Osteomyelitis, unspecified (3) PAD (peripheral artery disease) Current Visit: Yes Status: Acute Assessment and plan: Vascular Surgery following, recommendations appreciated 12/28 had balloon and stent angioplasty of left external iliac artery, tolerated without issue. Planned is for left fem-pop bypass 01/01 (4) Hypo-osmolality and hyponatremia Current Visit: Yes Status: Acute Assessment and plan: most likely secondary to volume depletion and dehydration in the setting of underlying infectious process fluctuating in lower 130s, currentl 131. Could be chronic, possibly medication related such as Zoloft. Patient now on diet, hold IV fluids. Would prefer to resume Losartan to improve HTN but this could precipitate hyponatremia. Instead will increase Norvasc dose. (5) Anemia Current Visit: Yes Status: Acute Assessment and plan: most likely secondary to chronic disease, hemoglobin stable, Qualifiers: Anemia type: due to chronic kidney disease Chronic kidney disease stage: stage 3 (moderate) Qualified Code(s): N18.3 - Chronic kidney disease, stage 3 (moderate); D63.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 (6) CKD (chronic kidney disease) Current Visit: Yes Status: Acute Assessment and plan: Stage III CKD Continue to use nephroprotective strategy and renally dose medications. Creatinine significant improvement, better than last known baseline. Qualifiers: Chronic kidney disease stage: stage 3 (moderate) Qualified Code(s): N18.3 - Chronic kidney disease, stage 3 (moderate) (7) Hypertension Current Visit: Yes Status: Acute Assessment and plan: Chronic condition, imperative to optimize patient's was BP running SBP 140-150s Losartan was not resumed because of hyponatremia and possibly what was considered an EVANS Instead Norvasc was increased to 10 mg daily and BP now improving, SBP running 130s. Qualifiers: Hypertension type: essential hypertension Qualified Code(s): I10 - Essential (primary) hypertension (8) DVT prophylaxis Current Visit: Yes Status: Acute Assessment and plan: Continue SQ heparin - Time Spent With Patient Total time spent is greater than 50% in coordination of care (as documented) at patient's floor/unit and/or counseling patient: - Subjective Interval history: Patient had left external iliac artery stent and balloon angioplasty 12/28. Doing well. Denies any pain leg pain, fevers/chills, n/v. Denies and swelling today. Patient in good spirits - Constitutional Vitals: Temp Pulse Resp BP Pulse Ox 97.8 F 80 18 135/72 98 12/31/17 07:33 12/31/17 07:33 12/31/17 07:33 12/31/17 07:33 12/31/17 07:33 General appearance: Present: A&O X 3 - Head Head exam: Present: atraumatic, normocephalic - Eye Eye exam: Present: PERRL, conjuntiva pink, sclera anicteric Pupils: Present: PERRL - Neck Neck exam general surgery: Present: supple, trachea midline. Absent: lymphadenopathy - Respiratory Respiratory exam: Present: CTAB. Absent: accessory muscle use, rales, rhonchi, wheezes - Cardiovascular Cardiovascular exam: Present: RRR, +S1, +S2. Absent: diastolic murmur, gallop, rubs, systolic murmur - GI/Abdominal GI/Abdominal exam: Present: normal bowel sounds, soft, no peritoneal signs. Absent: distended, tenderness - Extremities Exam Extremities exam: Present: warm, radial pulses palpable and symmetrical. Absent : calf tenderness, cyanotic, pedal edema Additional comments: Left foot wrapped and clean - Neurological Exam Neurological exam: Present: CN II-XII intact, oriented X3, no focal deficits. Absent: pronater drift, facial droop, speech deficit - Skin Skin exam: Present: dry, intact Internal Medicine: Result - Labs CBC & Chem 7: 12/31/17 06:01 12/31/17 06:01 Labs: Short CBC 12/31/17 Range/Units 06:01 WBC 10.0 (4.3-11.1) K/mcL Hgb 11.7 L (12.9-16.9) g/dL Hct 34.0 L (37.5-50.1) % Plt Count 369 (140-400) K/mcL Neutrophils # 7.4 (1.6-8.9) K/mcL BMP 12/31/17 06:01 Sodium 132 L Potassium 3.4 L Chloride 100 Carbon Dioxide 25 BUN 18 Creatinine 1.18 Glucose 109 H Calcium 8.8 - ABG Interpretation ABG results: PT/INR, D-dimer PT 14.5 Seconds (9.4-12.1) H 12/26/17 01:07 - VTE Documentation of Mechanical Device: Intermittent pneumatic compression device Consult Discharge Plan - Plan Referrals: Cosme Martínez MD [Non-Partnered Physician] - 01/02/18 10:45 am Slim Delacruz MD [Partnered Physician] - 01/23/18 11:45 am
[2018-01-01] MEDS: traMADol 50 MG TABLET PO PRN ×2 (00:36→06:43)
[2018-01-01] MEDS: *HR* HYDROcodone/Acet 5/325 mg TABLET PO PRN ×2 (03:09→23:46)
[2018-01-01] MEDS: Cefepime HCl 2,000 MG in 0.9 % Sodium Chloride Mini Bag 100 ML IVPB SCH (05:05)
[2018-01-01] MEDS: *HR* Heparin 5,000 UNIT/ML VIAL SQ SCH ×2 (05:06→16:46)
[2018-01-01 05:19] LABS: Basophils % 0.4 %; Eosinophils # 0.2 K/mcL (0.0-0.6); Eosinophils % 2.5 %; Hematocrit 30.6 % (37.5-50.1); Hemoglobin 10.4 g/dL (12.9-16.9); Immature Granulocytes % 2.7 % (0-4); Lymphocytes # 0.8 K/mcL (0.6-4.6); Lymphocytes % 9.6 %; Mean Corpuscular Hemoglobin 27.2 pg (28.0-33.3); Mean Corpuscular Volume 80.1 fL (83.0-100.0); Mean Platelet Volume 8.7 fL (9.4-12.4); Monocytes # 0.6 K/mcL (0.0-1.3); Neutrophils # 6.4 K/mcL (1.6-8.9); Platelet Count 327 K/mcL (140-400); Red Blood Count 3.82 M/mcL (4.19-5.50); Red Cell Distribution Width 15.4 % (11.5-14.5); Segmented Neutrophils % 77.8 %
[2018-01-01 05:38] LABS: BUN/Creatinine Ratio 18 (6-26); Blood Urea Nitrogen 18 mg/dL (8-23); Calcium 8.4 mg/dL (8.6-10.3); Carbon Dioxide 24 mEq/L (23-29); Chloride 101 mEq/L (98-107); Glucose 113 mg/dL (70-105); Osmolality,Calculated 275 (280-300); Potassium 3.4 mEq/L (3.5-5.1); Sodium 131 mEq/L (136-145); eGFR For African Americans > 60 (> 60); eGFR For Non-African Americans > 60 (> 60)
[2018-01-01] MEDS ORDERED: *HR* Midazolam HCl 2 MG/2 ML VIAL ONE (06:57)
[2018-01-01] MEDS ORDERED: *HR* Succinylcholine 200 MG/10 ML VIAL IVP ONE (06:57)
[2018-01-01] MEDS ORDERED: *HR* Propofol 200 MG/20 ML VIAL IVP ONE (06:57)
[2018-01-01] MEDS ORDERED: Lidocaine -MPF 2% 2 ML VIAL ONE ×3 (06:57→13:24)
[2018-01-01] MEDS ORDERED: *HR* FentaNYL (PF) 100 MCG/2 ML VIAL ONE ×2 (06:57→14:10)
[2018-01-01] MEDS ORDERED: Lidocaine -MPF 4% 5 ML AMPUL ONE (06:57)
[2018-01-01] MEDS ORDERED: Dexamethasone 4 MG/ML VIAL ONE (06:57)
[2018-01-01] MEDS ORDERED: *HR* Rocuronium Bromide 50 MG/5 ML VIAL ONE (06:57)
[2018-01-01] MEDS ORDERED: Ondansetron 4 MG/2 ML VIAL ONE (06:57)
[2018-01-01] MEDS ORDERED: Lacri-Lube 3.5 GM TUBE ONE (07:00)
[2018-01-01] MEDS ORDERED: *HR* PHENYLEPHRINE 1,000 MCG/10 ML SYRINGE IVP ONE ×3 (07:03→12:32)
--- NOTE | 2018-01-01 07:24 | Anesthesia Evaluation PreOp ---
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: Other (anxiety) Other Medical History: Renal (bladder ca, CKD III), Other Anesthesia History: No Prior Anesthetic Complications, Past Anesthesia (radical cystectomy, iliac stent) Alcohol Use: none Drug use: none Medications and Allergies Donepezil [Aricept] 5 mg PO DAILY 12/25/17 [History] InFLIXimab [Remicade] 100 mg IV AD 12/25/17 [History] Losartan [Cozaar] 25 mg PO DAILY 12/25/17 [History] Black-3/Dha/Epa/Fish Oil [Fish Oil 1,000 mg Softgel] 1 cap PO DAILY 12/25/17 [ History] Paricalcitol [Zemplar] 1 mcg PO Q72H 12/25/17 [History] Sertraline [Zoloft] 50 mg PO DAILY 12/25/17 [History] Tramadol HCl [Ultram] 50 mg PO QID PRN 12/25/17 [History] amLODIPine [Norvasc] 5 mg PO DAILY 12/25/17 [History] 3 Allergy/AdvReac Type Severity Reaction Status Date / Time cephalexin [From Keflex] Allergy Hives Verified 12/25/17 14:32 Penicillins Allergy Hives Verified 12/25/17 14:32 - Meds/Allergy Pre-op Review Medications Reviewed: Yes Allergies Reviewed: Yes Beta Blockers on Current Med List: No Anesthesia Results - Labs 01/01/18 05:00 01/01/18 05:00 - Imaging EKG: report reviewed (12/26/17 SR) Anesthesia Exam Vital Signs/O2 Sat, Most Current Temp Pulse Resp BP Pulse Ox 98.3 F 94 16 128/69 98 01/01/18 07:00 01/01/18 07:00 01/01/18 07:00 01/01/18 07:00 01/01/18 07:00 - HEENT Pupil (Motor): Pupils equal, EOMI Mallampati: III - NET LEAD ARCHITECT LOC: Oriented NET LEAD ARCHITECT Motor: Normal RUE, Normal LUE, Normal RLE, Normal LLE, Normal Face NET LEAD ARCHITECT Sensory: Normal: RUE, LUE, RLE, LLE, Face - Cardiac Rhythm: Regular - Pulmonary Breath Sounds: bilateral Clear Respiratory Effort: Symmetrical Anesthesia Assess/Plan ASA Score: 3 Modified Linn Scale for Level of Consciousness: Cooperative, oriented, and tranquil Anesthetic Plan: General Monitoring Plan: Standard Monitors, A-Line Recovery Plan: PACU
[2018-01-01] MEDS ORDERED: Heparin 1,000 UNITS/500 mL 1,000 ML ONE (07:37)
[2018-01-01] MEDS ORDERED: *HR* Heparin 5,000 UNIT/ML VIAL ONE ×2 (08:39→12:16)
[2018-01-01] MEDS ORDERED: *HR* Promethazine 25 MG/ML VIAL IVP PRN ×2 (09:08→16:13)
[2018-01-01] MEDS ORDERED: *HR* OxyCODONE Immed Rel 5 MG TABLET PO PRN ×2 (09:08→16:07)
[2018-01-01] MEDS ORDERED: *HR* FentaNYL (PF) 100 MCG/2 ML VIAL IVP PRN ×2 (09:08→15:58)
[2018-01-01] MEDS ORDERED: *HR* Labetalol 20 MG/4 ML SYRINGE IVP PRN ×2 (09:08→16:01)
[2018-01-01] MEDS ORDERED: MORPHINE SUL Oral CONC 10 MG/0.5 ML ORAL.SYG SL PRN ×3 (09:08→18:28)
[2018-01-01] MEDS ORDERED: Ondansetron 4 MG/2 ML VIAL IVP ONE (09:08)
[2018-01-01] MEDS ORDERED: Acetaminophen IV 1,000 MG/100 ML INFUS..BTL ONE (09:32)
--- NOTE | 2018-01-01 09:47 | Anesthesia Procedures ---
Date of Encounter: 01/01/18 Time of Encounter: 08:05 Procedures: Anesthesia - Arterial Line Consent obtained: written consent Time out performed: Yes Size (Gauge): 20 Length (inches): 1 3/4 Technique Used: sterile prep, guide wire technique Post-Procedure: line taped into place, dry sterile dressing placed Patient tolerated procedure: no complications Complications: none Site: Radial R Comments: procedure done after induction
[2018-01-01] MEDS ORDERED: Heparin 1,000 UNITS/500 mL 500 ML ONE (12:05)
--- NOTE | 2018-01-01 14:21 | Operative Note ---
Date of procedure: 01/01/18 Pre-op diagnosis: PAD/non healing ulcer Post-op diagnosis: same Procedure: left iliofemoral endarterectomy with anterior saphenous vein patch angioplasty left femoral-AK popliteal bypass with reversed GSV Complications: none Anesthesia: BRENTON Surgeon: Slim Delacruz Co-Surgeon: Franky Bailey Was there an financial administrative assistant present: No Estimated blood loss (cc): 200 Specimen: 0 Condition: stable Disposition: PACU Procedure in Detail: History Qasim Bajwa is an 82-year-old white male that was seen in consultation late last week for a nonhealing left foot ulcer. The patient had a history of Achilles tendon injury and it had podiatric surgery in [place] in late June. The patient's heel wound never healed and eventually was seen here at [place] and was admitted for internal medicine and podiatric consultation. The patient has left calcaneus osteomyelitis. Evaluation revealed however an ankle- brachial index of only 0.34 on the left and noncompressible vessels on the right. He went on to have an angiogram last week that demonstrated an occluded left external iliac artery and an occluded left superficial femoral artery. The external iliac artery was treated with a stent angioplasty and balloon angioplasty. The superficial femoral artery could not be crossed with a wire and requires direct open revascularization which is to be performed today for limb salvage. Of note the patient also has significant right superficial femoral artery occlusive disease that will require an endovascular intervention. This however will be postponed until the left foot lesion is resolved. Of note the patient has a history of bladder cancer. He had undergone a radical cystectomy with bladder replacement at [facility] many years ago. 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 Procedure After informed consent was obtained the patient was taken to the operating room. General endotracheal anesthesia was established under arterial line pressure monitoring. The left lower extremity was sterilely prepped and draped. The left foot was wrapped in a 8-1/2 glove. A timeout protocol was observed. A 2 team surgical approach was utilized for this procedure because of the patient' s multiple comorbidities condition. This also would expedite a rather challenging operation in regards to decreasing anesthesia time as well as decreasing blood loss. An incision was made in the left groin. This was placed in an oblique orientation. Dissection was carried down to reveal the common femoral artery. This was markedly calcified. Control was obtained of this vessel including the runoff vessels distally. Dissection was carried up into the external iliac artery with a small amount of the inguinal ligament divided. There was marked inflammation and edema in the groin area. The patient does have a history of pelvic radiation as noted above. After rather tedious dissection attention was then turned to the greater saphenous vein. This was then dissected on the proximal aspect of the thigh and carried distally. The dissection was carried through interrupted incisions to the above-knee popliteal location. The vein was judged to be adequate in size and caliber for use as a conduit to create the bypass graft. In addition the anterior saphenous vein was identified and utilized as well and this was going to be used then for the patch on the common femoral artery iliofemoral endarterectomy site. The above-knee popliteal artery was then dissected and controlled. A subsartorial tunnel was created. 5000 units of heparin were then administered intravenously. After a three-minute delay the femoral vessels were clamped. A longitudinal arteriotomy was then made along the anterior surface of the common femoral artery and distal external iliac artery. It was carried distally so that the orifice of the profunda femoris artery could be visualized. A long endarterectomy was then performed including the orifice of the profunda femoris artery and the distal external iliac artery. The plaque was a very solid dense calcific plaque. After this was removed and the bed of the vessel was irrigated and all loose debris was removed the anterior saphenous vein was prepared and was divided lengthwise. This was adequate for use as a conduit after it had been gently dilated with heparinized saline. This was then sewn into position using 6-0 Prolene suture. After this was accomplished and a incision was made on the vein patch. The end of vein to side of patch anastomosis was then created with the greater saphenous vein. The greater saphenous vein was placed in reversed orientation. The proximal anastomosis was performed with 6-0 Prolene suture. After appropriate backbleeding and flushing the venetie vessel was opened and pulsatile flow was restored into the profunda femoris artery. The vein was then checked for hemostasis. It was then passed through the previously created subsartorial tunnel. The above-knee popliteal artery was then incised. This vessel was flushed with heparinized saline. Plaque was present but was not occlusive and did not require an endarterectomy. An end of vein to side of popliteal artery anastomosis was then performed. Again 6-0 Prolene suture was utilized. After appropriate backbleeding and flushing the graft was opened. Excellent pulsatile flow was demonstrated through the vein graft into the popliteal artery. A strong biphasic signal in the posterior tibial artery at the ankle was identified. The wounds were then irrigated. There were then closed in layers using absorbable suture. There were no intraoperative complications. The patient tolerated the procedure well. The patient was extubated in the operating room and taken to the recovery room in stable condition. No blood transfusions were administered. There were no specimens for this operation.
[2018-01-01] MEDS ORDERED: Naloxone 0.4 MG/ML INJ IVP PRN ×2 (14:46→15:42)
--- NOTE | 2018-01-01 15:15 | Infectious Disease Progress No ---
Date of Encounter: 01/01/18 Time of Encounter: 15:13 - Assessment and Plan (1) Sepsis Current Visit: Yes Status: Acute The patient had three SIRS criteria on admission. Likely secondary to left heel osteomyelitis or left hip etiology. Resolved. Afebrile. Tachycardia has resolved. WBC normal. Blood cultures drawn 12/25/17 are negative x 2 sets. Qualifiers: Sepsis type: sepsis due to unspecified organism Qualified Code(s): A41.9 - Sepsis, unspecified organism (2) Osteomyelitis Current Visit: Yes Status: Acute Location: Left calcaneus. Causative organism: Unclear. X-ray of the left foot shows chronic erosion over the posterior calcaneus. Bone scan showed findings consistent with OM of the calcaneus. Podiatry consulted and following. Planning to take the patient to surgery for calcanectomy if the vascular team can improve blood flow to the extremity. No cultures have been obtained. ESR 94, CRP 254. Wound culture ordered, but not obtained. Continue Vancomycin IV. Pharmacy to dose. Goal trough ~15. Continue Cefepime 2 grams IV Q12H. The patient has a documented "allergy" to Keflex, but reports adverse effects from medication and not true allergy. Will avoid fluoroquinolones due to the patient's history of Achilles tendon rupture with recent repair. Await further recommendations from the Podiatry and Vascular teams. Duration of treatment depends on the clinical picture. Monitor renal function and for drug toxicity and dose-adjust antibiotics. Qualifiers: Osteomyelitis type: unspecified type Osteomyelitis location: foot Laterality: right Qualified Code(s): M86.9 - Osteomyelitis, unspecified (3) Left hip pain Current Visit: Yes Status: Acute Etiology unclear. X-ray negative. CT scan negative for septic arthritis. May need to get ortho to evaluate. Pain management per the primary team. (4) Ulcer of left heel Current Visit: Yes Status: Acute Chronic. Podiatry consulted and following. Wound care per the podiatry team. Qualifiers: Non-pressure ulcer stage: unspecified non-pressure ulcer stage Qualified Code(s): L97.429 - Non-pressure chronic ulcer of left heel and midfoot with unspecified severity (5) CKD (chronic kidney disease) Current Visit: Yes Status: Acute Known CKD stage III. Serum creatinine normal this morning. Not clear what the patient's baseline is. Continue to trend and monitor closely. Strict I's and O's. Dose-adjust antibiotics. Avoid nephrotoxins as able. Qualifiers: Chronic kidney disease stage: stage 3 (moderate) Qualified Code(s): N18.3 - Chronic kidney disease, stage 3 (moderate) (6) PAD (peripheral artery disease) Current Visit: Yes Status: Acute ABIs consistent with moderate disease in the RLE and severe disease in the LLE. Vascular surgery consulted. Status post angiogram 12/28/17 with balloon angioplasty and stent placement. Status post left iliofemoral enarterectomy with anterior saphenous vein patch angioplasty and left femoral-AK popliteal bypass with reversed GSV. (7) Status post left foot surgery Current Visit: Yes Status: Acute Status post left foot reconstruction and Achilles tendon repair in June at [facility]. 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 - Subjective Interval history: Patient seen and examined. Weekend notes reviewed. Status post angiogram with balloon angioplasty and stent to the left external iliac artery 12/28/[address] Delacruz. Status post left iliofemoral endarterectomy with anterior saphenous vein patch angioplasty and left femoral-AK popliteal bypass with reversed GSV by Dr. Delacruz. Patient is just back from surgery. No acute events noted overnight. Denies fevers or chills or rigors,Denies chest pain, shortness of breath, or cough. Denies nausea, vomiting, diarrhea, or constipation. Denies abdominal pain or urinary complaints. He denies any oral thrush or new skin lesions. He states the left hip pain is improved today. He reports no pain in the left foot, but does report some in the left ankle. Infect Dis PN-Objective Data - Labs CBC & Chem 7: 01/02/18 05:10 01/02/18 05:10 Labs: Laboratory Results - last 24 hr 01/01/18 01/01/18 05:00 05:00 WBC 8.2 RBC 3.82 L Hgb 10.4 L Hct 30.6 L MCV 80.1 L MCH 27.2 L MCHC 34.0 RDW 15.4 H Plt Count 327 MPV 8.7 L Immature Gran % 2.7 Seg Neutrophils % 77.8 Lymphocytes % 9.6 Monocytes % 7.0 Eosinophils % 2.5 Basophils % 0.4 Neutrophils # 6.4 Lymphocytes # 0.8 Monocytes # 0.6 Eosinophils # 0.2 Basophils # 0.0 Sodium 131 L Potassium 3.4 L Chloride 101 Carbon Dioxide 24 BUN 18 Creatinine 1.02 Est GFR ( Amer) > 60 Est GFR (Non-Af Amer) > 60 BUN/Creatinine Ratio 18 Glucose 113 H Calculated Osmolality 275 L Calcium 8.4 L Exam - Constitutional Vitals: Temp Pulse Resp BP Pulse Ox 98.2 F 78 12 134/72 97 01/01/18 15:04 01/01/18 15:04 01/01/18 15:04 01/01/18 15:04 01/01/18 15:04 General appearance: average body habitus, cooperative, no acute distress - Head Head exam: Present: atraumatic, normal inspection, normocephalic - Eye Eye exam: Present: EOMI, normal appearance, PERRL Pupils: Present: normal accommodation - ENT ENT exam: Present: mucous membranes moist - Neck Neck exam: Present: normal inspection - Respiratory Respiratory exam: Present: CTAB. Absent: rales, respiratory distress, rhonchi, wheezes - Cardiovascular Cardiovascular exam: Present: RRR, +S1, +S2 - GI/Abdominal GI/Abdominal exam: Present: normal bowel sounds, soft. Absent: distended, tenderness - Extremities Exam Extremities exam: Present: joint swelling (left ankle), tenderness (left ankle) . Absent: pedal edema Additional comments: Left LE surgical sites with small amount of shadow drainage on the post-op dressings. Left heel ulcer remains unchanged. - Neurological Exam Neurological exam: Present: alert, oriented X3, no focal deficits - Psychiatric Psychiatric exam: Present: normal affect, normal mood - Skin Skin exam: Present: dry, intact, normal color, warm - VTE Documentation of Mechanical Device: Intermittent pneumatic compression device Consult Discharge Plan - Plan Referrals: Cosme Martínez MD [Non-Partnered Physician] - 01/15/18 8:30 am (Please arrive @ 0815.) Slim Delacruz MD [Partnered Physician] - 01/23/18 11:45 am - Attending Attestation I examined this patient and my medical decision-making was reviewed with the Resident Physician. I agree with the documented findings, disposition and treatment plan as described except to the extent set forth below.
[2018-01-01] MEDS ORDERED: Acetaminophen 325 MG TABLET PO PRN ×2 (15:50→18:28)
[2018-01-01] MEDS ORDERED: Famotidine 20 MG TABLET PO PRN (15:56)
[2018-01-01] MEDS ORDERED: *HR* HYDROcodone/Acet 5/325 mg TABLET PO PRN (16:00)
[2018-01-01] MEDS ORDERED: Ondansetron 4 MG/2 ML VIAL IVP PRN (16:05)
--- NOTE | 2018-01-01 16:26 | Anesthesia Evaluation Post Op ---
Date of Encounter: 01/01/18 Time of Encounter: 15:15 - Vital Signs Vital Signs: Vital Signs/O2 Sat/Glucose, Most Current Temp Pulse Resp BP Pulse Ox 01/01/18 15:16 98.4 F 82 17 144/64 98 01/01/18 15:14 97.5 F L 80 16 143/70 98 01/01/18 15:09 161/52 01/01/18 15:04 98.2 F 78 12 134/72 97 01/01/18 14:54 81 12 142/66 96 01/01/18 14:44 82 12 137/73 99 01/01/18 14:34 98.3 F 88 12 141/72 97 - Lungs Lungs: Clear Ascult./Percussion - Airway Airway: Non-obstructed - Cardiovascular Regular Rate - Mental Status Mental Status: Alert & Oriented, Answers Appropriately - Pain Pain Scale: 0 Pain Scale used: Numeric (1 - 10) - Nausea Vomiting Nausea Vomiting: Not Present - Hydration Hydration: Tolerates oral liquids - Discharge PostOp Status: Transfer Patient to floor Anes Supervising Prov Stmt: Pt seen/evaluated, VSS And pt has met criteria for discharge to home. - MD Bess
[2018-01-01] MEDS: Cefepime HCl 2,000 MG in Water for inj. (sterile) 20 ML 20 ML IVP SCH (17:16)
--- NOTE | 2018-01-01 17:31 | Internal Med Progress Note ---
Date of Encounter: 01/01/18 Time of Encounter: 17:29 - Assessment and plan (1) Osteomyelitis Current Visit: Yes Status: Acute Assessment and plan: ID consulted, appreciate input. S/P balloon angioplasty 12/28/17. S/P Left Fem- Pop 01/01/18. Continue IV vancomycin and IV cefepime. Podiatry consulted; appreciate input; they will reevaluate on . Qualifiers: Osteomyelitis type: unspecified type Osteomyelitis location: foot Laterality: right Qualified Code(s): M86.9 - Osteomyelitis, unspecified (2) Hypo-osmolality and hyponatremia Current Visit: Yes Status: Acute Assessment and plan: Stable. Could be in part to SSRI. He is asymptomatic. Patient now on diet, hold IV fluids. Recheck BMP in AM. (3) Anemia Current Visit: Yes Status: Acute Assessment and plan: Most likely secondary to chronic disease. Hemoglobin stable. Recheck CBC in AM. Qualifiers: Anemia type: due to chronic kidney disease Chronic kidney disease stage: stage 3 (moderate) Qualified Code(s): N18.3 - Chronic kidney disease, stage 3 (moderate); D63.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 (4) CKD (chronic kidney disease) Current Visit: Yes Status: Acute Assessment and plan: Stage III CKD. Continue to use nephroprotective strategy and renally dose medications. Creatinine better than last known baseline. Qualifiers: Chronic kidney disease stage: stage 3 (moderate) Qualified Code(s): N18.3 - Chronic kidney disease, stage 3 (moderate) (5) Sepsis Current Visit: Yes Status: Acute Assessment and plan: Resolved. Was likely secondary to osteomyeltitis of left foot. Continue IV vancomycin and IV cefepime as per above. Qualifiers: Sepsis type: sepsis due to unspecified organism Qualified Code(s): A41.9 - Sepsis, unspecified organism (6) PAD (peripheral artery disease) Current Visit: Yes Status: Acute Assessment and plan: Vascular Surgery consulted; appreciate input. S/P balloon angioplasty of left external iliac artery on 12/28/17. S/P Left Fem-Pop on 01/01/18. (7) Hypertension Current Visit: Yes Status: Acute Assessment and plan: Improved. Hold home losartan due to hyponatremia. Continue home medications with increased amlodipine dose. Monitor vitals. Qualifiers: Hypertension type: essential hypertension Qualified Code(s): I10 - Essential (primary) hypertension (8) DVT prophylaxis Current Visit: Yes Status: Acute Assessment and plan: Continue SQ heparin. - Time Spent With Patient Total time spent is greater than 50% in coordination of care (as documented) at patient's floor/unit and/or counseling patient: less than 15 minutes - Subjective Interval history: Patient had no acute events overnight. He is POD #0 s/p left fem-pop. He states that procedure went well. He is in good spirits today. He denies any pain at this time. He denies chest pain, SOB, fever, chills, nausea, or vomiting. He has no complaints at this time. - Constitutional Vitals: Temp Pulse Resp BP Pulse Ox 98.6 F 88 17 139/66 98 01/01/18 16:23 01/01/18 16:23 01/01/18 16:23 01/01/18 16:23 01/01/18 16:23 General appearance: Present: cooperative, A&O X 3, pleasant, no acute distress, answers questions appropriately - Respiratory Respiratory exam: Present: CTAB. Absent: accessory muscle use, rales, rhonchi, wheezes Additional comments: Normal WOB - Cardiovascular Cardiovascular exam: Present: RRR, +S1, +S2. Absent: diastolic murmur, gallop, rubs, systolic murmur Additional comments: Trace L>R pedal edema - GI/Abdominal GI/Abdominal exam: Present: normal bowel sounds, soft. Absent: distended, hepatomegaly, mass, splenomegaly, tenderness - Psychiatric Psychiatric exam: Present: normal affect, normal mood. Absent: agitated, anxious, depressed - Skin Skin exam: Present: dry, warm. Absent: cyanosis, erythema, rash Internal Medicine: Result - Labs CBC & Chem 7: 01/01/18 05:00 01/01/18 05:00 Labs: Short CBC 01/01/18 Range/Units 05:00 WBC 8.2 (4.3-11.1) K/mcL Hgb 10.4 L (12.9-16.9) g/dL Hct 30.6 L (37.5-50.1) % Plt Count 327 (140-400) K/mcL Neutrophils # 6.4 (1.6-8.9) K/mcL BMP 01/01/18 05:00 Sodium 131 L Potassium 3.4 L Chloride 101 Carbon Dioxide 24 BUN 18 Creatinine 1.02 Glucose 113 H Calcium 8.4 L - ABG Interpretation ABG results: PT/INR, D-dimer PT 14.5 Seconds (9.4-12.1) H 12/26/17 01:07 Consult Discharge Plan - Plan Referrals: Cosme Martínez MD [Non-Partnered Physician] - 01/15/18 8:30 am (Please arrive @ 0815.) Slim Delacruz MD [Partnered Physician] - 01/23/18 11:45 am
--- NOTE | 2018-01-01 18:41 | Operative Note ---
Date of procedure: 01/01/18 Pre-op diagnosis: Peripheral vascular disease with ulceration Post-op diagnosis: same Procedure: 1. Left common femoral to above-knee popliteal artery bypass with reversed left greater saphenous vein. 2. Left iliofemoral endarterectomy with saphenous vein patch angioplasty. Complications: None Anesthesia: GETA Surgeon: Franky Bailey Co-Surgeon: Slim Delacruz Was there an inside sales assistant present: No Estimated blood loss (cc): 200 Specimen: None Condition: stable Disposition: PACU Procedure in Detail: Indications: The patient is an 82 year old male with a history of hypertension and peripheral vascular disease with disabling nonhealing ulceration. He was found to have significant iliac and common femoral disease as well as a left superficial femoral artery occlusion. He previously underwent left iliac stent placement. Revascularization was recommended to reduce his symptoms. Procedure: The patient was identified in the preoperative area. The risks, benefits, and alternatives of the procedure were discussed. All questions were answered. The patient was taken to the operating room and placed in supine position on the operating room table. After the induction of general endotracheal anesthesia, he was cleaned and draped in normal sterile fashion. An oblique incision was made over the left groin sharply. Hemostasis was obtained with electrocautery. Through a process of blunt, sharp, and electrocautery dissection, the left femoral vessels were dissected circumferentially and surrounded with vessel loops. A longitudinal incision was made on the left medial distal thigh sharply. Hemostasis was obtained with electrocautery. Through a process of blunt, sharp, and electrocautery dissection, the left above-knee popliteal artery was dissected proximally and distally and surrounded with vessel loops. Multiple skin incisions were made along the thigh between the two incisions along the saphenous vein. The saphenous vein was completely mobilized with blunt, sharp, and electrocautery dissection. The side branches were clamped, divided, tied off with 3-0 and 4-0 silk sutures. Distally, the vein was mobilized in the calf, clamped, divided, tied off with silk suture ligature and then further completely mobilized through the incisions. The vein was flushed and noted to be adequate in size and consistency for bypass. A tunnel was created between the femoral and popliteal artery incisions. The vein was reversed. Tension was applied to the femoral vessel loops. An arteriotomy was made in the common femoral artery and significant partially occlusive plaque was noted. Weakly pulsatile flow was noted from the external iliac artery. An endarterectomy was performed using a dental freer. Endpoints were then inspected and no elevated flaps were noted. Brisk pulsatile flow was then noted from the external iliac artery. The lumen was flushed. A portion of accessory saphenous vein was cut to fit the arterial defect and sutured in place with a running 6-0 Prolene. Flow was restored and a strong pulse was noted. The vessels were reoccluded and a longitudinal incision was made through the saphenous vein patch. The vein graft was cut to fit then cut to fit the defect in the patch. The graft was reversed and then anastamosed with a running 6-0 Prolene. After completing the closure, the vessels were reperfused and pulsatile flow was noted through the vein. The vein was marked without torsion and then it was tunneled between the two incisions. After tunneling, the vein was unclamped and was noted to have strong pulsatile flow once again. It was re-clamped. The popliteal vessels were occluded and a longitudinal arteriotomy was made in the popliteal artery. The distal end of the graft was sutured in place with a running 6-0 Prolene,. The distal arterial anastomosis was completed and prior to completing the closure, the popliteal vessels were flushed and reoccluded. Heparinized saline was infused into the lumen. The anastamosis was tied and then flow was restored. Polyphasic signals were noted distal to the distal anastomosis as well as at the posterior tibial artery. The wounds were irrigated with antibiotic- containing saline. Thrombin and gelfoam were used to aid in hemostasis. Meticulous hemostasis was obtained throughout the wound with electrocautery. Wounds were reapproximated with layers of 2-0 and 3-0 Vicryl. Skin was reapproximated with 4-0 Vicryl. Sterile dressing was applied. The patient was extubated and taken to recovery room in stable condition.
[2018-01-01] MEDS ORDERED: Vancomycin 1,750 MG in D5% in Water 500 ML IVPB SCH (21:00)
[2018-01-01] MEDS: Sennosides 8.6 MG TABLET PO SCH (21:13)
[2018-01-02] MEDS: *HR* HYDROcodone/Acet 5/325 mg TABLET PO PRN ×3 (04:55→15:19)
[2018-01-02] MEDS: Cefepime HCl 2,000 MG in Water for inj. (sterile) 20 ML 20 ML IVP SCH ×2 (05:00→17:06)
[2018-01-02] MEDS: *HR* Heparin 5,000 UNIT/ML VIAL SQ SCH ×2 (05:00→15:19)
[2018-01-02 05:31] LABS: Basophils % 0.2 %; Eosinophils % 0.3 %; Hematocrit 25.3 % (37.5-50.1); Immature Granulocytes % 2.3 % (0-4); Lymphocytes % 9.6 %; Mean Corpuscular Hemoglobin 27.2 pg (28.0-33.3); Mean Corpuscular Volume 80.1 fL (83.0-100.0); Monocytes # 0.5 K/mcL (0.0-1.3); Monocytes % 5.4 %; Neutrophils # 8.2 K/mcL (1.6-8.9); Nucleated Red Blood Cells 0.2 /100 WBC (0); Platelet Count 343 K/mcL (140-400); Red Blood Count 3.16 M/mcL (4.19-5.50); Red Cell Distribution Width 15.4 % (11.5-14.5); Segmented Neutrophils % 82.2 %
[2018-01-02 05:33] LABS: Hemoglobin 8.6 g/dL (12.9-16.9)
[2018-01-02 05:50] LABS: BUN/Creatinine Ratio 20 (6-26); Blood Urea Nitrogen 25 mg/dL (8-23); Carbon Dioxide 23 mEq/L (23-29); Chloride 103 mEq/L (98-107); Glucose 144 mg/dL (70-105); Osmolality,Calculated 279 (280-300); Potassium 4.1 mEq/L (3.5-5.1); Sodium 131 mEq/L (136-145); eGFR For African Americans > 60 (> 60); eGFR For Non-African Americans 55 (> 60)
[2018-01-02] MEDS: amLODIPine 5 MG TABLET PO SCH (08:10)
[2018-01-02] MEDS: Sennosides 8.6 MG TABLET PO SCH ×2 (08:10→21:58)
[2018-01-02] MEDS: traMADol 50 MG TABLET PO PRN (11:01)
--- NOTE | 2018-01-02 13:27 | Vascular/[facility] Progress Note ---
Date of Encounter: 01/02/18 Time of Encounter: 08:30 - Assessment and plan (1) PAD (peripheral artery disease) Current Visit: Yes Status: Acute Patient is doing well on postoperative day #1 following left femoral to above- the-knee popliteal artery bypass graft and then iliofemoral endarterectomy. The perfusion to the left lower extremity and left foot in particular is dramatically improved. Patient may proceed with podiatric surgery as scheduled by Dr. Sagastume. (2) Osteomyelitis Current Visit: Yes Status: Acute Left heel osteomyelitis. Further debridement would be necessary in attempts to salvage the left foot but increased blood flow is imperative in order to this to be performed. May proceed with podiatric intervention as deemed appropriate by Dr. Sagastume. Qualifiers: Osteomyelitis type: unspecified type Osteomyelitis location: foot Laterality: right Qualified Code(s): M86.9 - Osteomyelitis, unspecified (3) CKD (chronic kidney disease) Current Visit: Yes Status: Acute Patient has history of chronic kidney disease. Post-angiogram and Postoperatively the patient's BUN and creatinine are normal. Qualifiers: Chronic kidney disease stage: stage 3 (moderate) Qualified Code(s): N18.3 - Chronic kidney disease, stage 3 (moderate) - Subjective Interval history: Patient had an uneventful night. Patient states left lower extremity is feeling better and warmer. Vital Signs, Last 4 Hours Temp Pulse Resp BP Pulse Ox 01/02/18 10:42 97.2 F L 86 20 134/66 98 - Physical Examination General: Present: Conversant, No Apparent Distress HEENT: Present: Atraumatic Vascular: Present: Normal capillary refill, Color/Temperature (Left foot is warm and pink), Surgical incisions (Left lower extremity dressings are intact.) Skin: Present: No rashes noted on visualized skin - VTE Documentation of Mechanical Device: Intermittent pneumatic compression device Results 01/02/18 05:10 01/02/18 05:10 Lab Results, Last 24 hours 01/02/18 01/02/18 05:10 05:10 WBC 10.0 Hgb 8.6 L D Hct 25.3 L Plt Count 343 Sodium 131 L Potassium 4.1 Chloride 103 Carbon Dioxide 23 BUN 25 H Creatinine 1.26 Glucose 144 H Calcium 8.0 L Consult Discharge Plan - Plan Referrals: Cosme Martínez MD [Non-Partnered Physician] - 01/15/18 8:30 am (Please arrive @ 0815.) Slim Delacruz MD [Partnered Physician] - 01/23/18 11:45 am
--- NOTE | 2018-01-02 17:24 | Infectious Disease Progress No ---
Date of Encounter: 01/02/18 Time of Encounter: 17:22 - Assessment and Plan (1) Sepsis Current Visit: Yes Status: Acute The patient had three SIRS criteria on admission. Likely secondary to left heel osteomyelitis or left hip etiology. Resolved. Afebrile. Tachycardia has resolved. WBC normal. Blood cultures drawn 12/25/17 are negative x 2 sets. Qualifiers: Sepsis type: sepsis due to unspecified organism Qualified Code(s): A41.9 - Sepsis, unspecified organism (2) Osteomyelitis Current Visit: Yes Status: Acute Location: Left calcaneus. Causative organism: Unclear. X-ray of the left foot shows chronic erosion over the posterior calcaneus. Bone scan showed findings consistent with OM of the calcaneus. Podiatry consulted and following. Planning to take the patient to surgery for calcanectomy if the vascular team can improve blood flow to the extremity. No cultures have been obtained. ESR 94, CRP 254. Wound culture ordered, but not obtained. Continue Vancomycin IV. Pharmacy to dose. Goal trough ~15. Continue Cefepime 2 grams IV Q12H. The patient has a documented "allergy" to Keflex, but reports adverse effects from medication and not true allergy. Will avoid fluoroquinolones due to the patient's history of Achilles tendon rupture with recent repair. Await further recommendations from the Podiatry and Vascular teams. Duration of treatment depends on the clinical picture. Monitor renal function and for drug toxicity and dose-adjust antibiotics. Qualifiers: Osteomyelitis type: unspecified type Osteomyelitis location: foot Laterality: right Qualified Code(s): M86.9 - Osteomyelitis, unspecified (3) Left hip pain Current Visit: Yes Status: Acute Etiology unclear. X-ray negative. CT scan negative for septic arthritis. May need to get ortho to evaluate. Pain management per the primary team. (4) Ulcer of left heel Current Visit: Yes Status: Acute Chronic. Podiatry consulted and following. Wound care per the podiatry team. Qualifiers: Non-pressure ulcer stage: unspecified non-pressure ulcer stage Qualified Code(s): L97.429 - Non-pressure chronic ulcer of left heel and midfoot with unspecified severity (5) CKD (chronic kidney disease) Current Visit: Yes Status: Acute Known CKD stage III. Serum creatinine normal this morning. Not clear what the patient's baseline is. Continue to trend and monitor closely. Strict I's and O's. Dose-adjust antibiotics. Avoid nephrotoxins as able. Qualifiers: Chronic kidney disease stage: stage 3 (moderate) Qualified Code(s): N18.3 - Chronic kidney disease, stage 3 (moderate) (6) PAD (peripheral artery disease) Current Visit: Yes Status: Acute ABIs consistent with moderate disease in the RLE and severe disease in the LLE. Vascular surgery consulted. Status post angiogram 12/28/17 with balloon angioplasty and stent placement. Status post left iliofemoral enarterectomy with anterior saphenous vein patch angioplasty and left femoral-AK popliteal bypass with reversed GSV. (7) Status post left foot surgery Current Visit: Yes Status: Acute Status post left foot reconstruction and Achilles tendon repair in June at [facility]. 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 - Subjective Interval history: Patient seen and examined. appears to be doing. NO complaints. VS stable. Afebrile. WBC around 10. good urine output. Cr. Noted. d/w surgery team, taking patient for more resection on Sunday Infect Dis PN-Objective Data - Labs CBC & Chem 7: 01/02/18 05:10 01/02/18 05:10 Labs: Laboratory Results - last 24 hr 01/02/18 01/02/18 05:10 05:10 WBC 10.0 RBC 3.16 L Hgb 8.6 L D Hct 25.3 L MCV 80.1 L MCH 27.2 L MCHC 34.0 RDW 15.4 H Plt Count 343 MPV 9.0 L Immature Gran % 2.3 Seg Neutrophils % 82.2 Lymphocytes % 9.6 Monocytes % 5.4 Eosinophils % 0.3 Basophils % 0.2 Neutrophils # 8.2 Lymphocytes # 1.0 Monocytes # 0.5 Eosinophils # 0.0 Basophils # 0.0 Nucleated RBCs/100 WBC 0.2 H Sodium 131 L Potassium 4.1 Chloride 103 Carbon Dioxide 23 BUN 25 H Creatinine 1.26 Est GFR ( Amer) > 60 Est GFR (Non-Af Amer) 55 L BUN/Creatinine Ratio 20 Glucose 144 H Calculated Osmolality 279 L Calcium 8.0 L Exam - Constitutional Vitals: Temp Pulse Resp BP Pulse Ox 97.2 F L 86 20 134/66 98 01/02/18 10:42 01/02/18 10:42 01/02/18 10:42 01/02/18 10:42 01/02/18 10:42 - VTE Documentation of Mechanical Device: Intermittent pneumatic compression device Consult Discharge Plan - Plan Referrals: Cosme Martínez MD [Non-Partnered Physician] - 01/15/18 8:30 am (Please arrive @ 0815.) Slim Delacruz MD [Partnered Physician] - 01/23/18 11:45 am
--- NOTE | 2018-01-02 18:27 | Internal Med Progress Note ---
Date of Encounter: 01/02/18 Time of Encounter: 17:07 - Assessment and plan (1) Osteomyelitis Current Visit: Yes Status: Acute Assessment and plan: ID consulted, appreciate input. S/P balloon angioplasty 12/28/17. S/P Left Fem- Pop 01/01/18. Continue IV vancomycin and IV cefepime. Podiatry consulted; appreciate input; plan for debridement Sunday. Qualifiers: Osteomyelitis type: unspecified type Osteomyelitis location: foot Laterality: right Qualified Code(s): M86.9 - Osteomyelitis, unspecified (2) Hypo-osmolality and hyponatremia Current Visit: Yes Status: Acute Assessment and plan: Stable. Could be in part to SSRI. He is asymptomatic. Patient now on diet, hold IV fluids. Recheck BMP in AM. (3) Anemia Current Visit: Yes Status: Acute Assessment and plan: Most likely secondary to chronic disease. Hemoglobin down a little after surgery yesterday. Recheck CBC in AM. Transfuse if hemoglobin drops below 7.0 or symptomatic. Qualifiers: Anemia type: due to chronic kidney disease Chronic kidney disease stage: stage 3 (moderate) Qualified Code(s): N18.3 - Chronic kidney disease, stage 3 (moderate); D63.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 (4) CKD (chronic kidney disease) Current Visit: Yes Status: Acute Assessment and plan: Stage III CKD. Continue to use nephroprotective strategy and renally dose medications. Creatinine better than last known baseline. Qualifiers: Chronic kidney disease stage: stage 3 (moderate) Qualified Code(s): N18.3 - Chronic kidney disease, stage 3 (moderate) (5) Sepsis Current Visit: Yes Status: Resolved Assessment and plan: Resolved. Was likely secondary to osteomyeltitis of left foot. Continue IV vancomycin and IV cefepime as per above. Qualifiers: Sepsis type: sepsis due to unspecified organism Qualified Code(s): A41.9 - Sepsis, unspecified organism (6) PAD (peripheral artery disease) Current Visit: Yes Status: Chronic Assessment and plan: Vascular Surgery consulted; appreciate input. S/P balloon angioplasty of left external iliac artery on 12/28/17. S/P Left Fem-Pop on 01/01/18. (7) Hypertension Current Visit: Yes Status: Chronic Assessment and plan: Normotensive. Hold home losartan due to hyponatremia. Continue home medications with increased amlodipine dose. Monitor vitals. Qualifiers: Hypertension type: essential hypertension Qualified Code(s): I10 - Essential (primary) hypertension (8) DVT prophylaxis Current Visit: Yes Status: Acute Assessment and plan: Continue SQ heparin. - Time Spent With Patient Total time spent is greater than 50% in coordination of care (as documented) at patient's floor/unit and/or counseling patient: less than 15 minutes - Subjective Interval history: Patient had no acute events overnight. He is POD #1 s/p left fem-pop. He states LLE pain is improved. He is in good spirits today. He is eating dinner in room. He denies chest pain, SOB, fever, chills, nausea, or vomiting. He has no complaints at this time. - Constitutional Vitals: Temp Pulse Resp BP Pulse Ox 97.2 F L 86 20 134/66 98 01/02/18 10:42 01/02/18 10:42 01/02/18 10:42 01/02/18 10:42 01/02/18 10:42 General appearance: Present: cooperative, A&O X 3, pleasant, no acute distress, answers questions appropriately - Respiratory Respiratory exam: Present: CTAB. Absent: accessory muscle use, rales, rhonchi, wheezes Additional comments: Normal WOB - Cardiovascular Cardiovascular exam: Present: RRR, +S1, +S2. Absent: diastolic murmur, gallop, rubs, systolic murmur Additional comments: 1+ LLE pedal edema. - GI/Abdominal GI/Abdominal exam: Present: normal bowel sounds, soft. Absent: distended, hepatomegaly, mass, splenomegaly, tenderness - Psychiatric Psychiatric exam: Present: normal affect, normal mood. Absent: agitated, anxious, depressed - Skin Skin exam: Present: dry, intact, warm. Absent: cyanosis, rash Internal Medicine: Result - Labs CBC & Chem 7: 01/02/18 05:10 01/02/18 05:10 Labs: Short CBC 01/02/18 Range/Units 05:10 WBC 10.0 (4.3-11.1) K/mcL Hgb 8.6 L D (12.9-16.9) g/dL Hct 25.3 L (37.5-50.1) % Plt Count 343 (140-400) K/mcL Neutrophils # 8.2 (1.6-8.9) K/mcL BMP 01/02/18 05:10 Sodium 131 L Potassium 4.1 Chloride 103 Carbon Dioxide 23 BUN 25 H Creatinine 1.26 Glucose 144 H Calcium 8.0 L - ABG Interpretation ABG results: PT/INR, D-dimer PT 14.5 Seconds (9.4-12.1) H 12/26/17 01:07 Consult Discharge Plan - Plan Referrals: Cosme Martínez MD [Non-Partnered Physician] - 01/15/18 8:30 am (Please arrive @ 0815.) Slim Delacruz MD [Partnered Physician] - 01/23/18 11:45 am
[2018-01-02] MEDS: *HR* OxyCODONE Immed Rel 5 MG TABLET PO PRN (21:58)
[2018-01-03] MEDS: *HR* HYDROcodone/Acet 5/325 mg TABLET PO PRN ×3 (04:08→20:18)
[2018-01-03] MEDS: *HR* Heparin 5,000 UNIT/ML VIAL SQ SCH ×2 (04:08→16:47)
[2018-01-03 04:22] LABS: Basophils % 0.4 %; Eosinophils # 0.1 K/mcL (0.0-0.6); Eosinophils % 0.9 %; Hematocrit 27.3 % (37.5-50.1); Hemoglobin 9.1 g/dL (12.9-16.9); Immature Granulocytes % 4.2 % (0-4); Lymphocytes # 1.2 K/mcL (0.6-4.6); Mean Corpuscular HGB Conc 33.3 g/dL (31.6-35.5); Mean Platelet Volume 8.2 fL (9.4-12.4); Monocytes # 0.6 K/mcL (0.0-1.3); Monocytes % 5.2 %; Neutrophils # 8.3 K/mcL (1.6-8.9); Platelet Count 330 K/mcL (140-400); Red Blood Count 3.37 M/mcL (4.19-5.50); Red Cell Distribution Width 15.5 % (11.5-14.5); Segmented Neutrophils % 78.3 %
[2018-01-03 04:40] LABS: BUN/Creatinine Ratio 16 (6-26); Blood Urea Nitrogen 21 mg/dL (8-23); Calcium 8.2 mg/dL (8.6-10.3); Carbon Dioxide 25 mEq/L (23-29); Chloride 101 mEq/L (98-107); Glucose 111 mg/dL (70-105); Osmolality,Calculated 278 (280-300); Potassium 4.2 mEq/L (3.5-5.1); Sodium 132 mEq/L (136-145); eGFR For African Americans > 60 (> 60); eGFR For Non-African Americans 53 (> 60)
[2018-01-03] MEDS: Cefepime HCl 2,000 MG in Water for inj. (sterile) 20 ML 20 ML IVP SCH ×2 (06:43→16:47)
[2018-01-03] MEDS: amLODIPine 5 MG TABLET PO SCH (07:47)
[2018-01-03] MEDS: Sennosides 8.6 MG TABLET PO SCH ×2 (07:48→20:18)
--- NOTE | 2018-01-03 08:43 | Podiatry Progress Note ---
Date of Encounter: 01/03/18 Time of Encounter: 06:00 - Assessment and Plan (1) Osteomyelitis Current Visit: Yes Status: Acute plan for OR sunday afternoon for debridement of calcaneal bone/partial calcanectomy and flap closure of the left heel wound. anture of procedure, risks vs benefits potential complications and consequences of surgery discussed at length including but not limited to infection, bleeding, swelling, weakness, bone fracture, wound healing problems, and could need further surgery. no guarantees made as to the outcome. all questions answered and the informed consent was signed. NPO after midnight. Qualifiers: Osteomyelitis type: other chronic Osteomyelitis location: foot Laterality : left Qualified Code(s): M86.672 - Other chronic osteomyelitis, left ankle and foot Subjective Interval history: left posterior heel ulceration present for 6-7 months since having left achilles tendon repair in [place]. Now s/p fem to above knee popliteal bypass by vascular. patient has osteomyelitis of the heel bone. Objective - Vital Signs Vital Signs: Vital Signs Temp Pulse Resp BP Pulse Ox 01/03/18 07:01 98.2 F 85 16 135/65 95 01/03/18 04:03 98.4 F 84 14 136/64 96 01/02/18 23:45 99.0 F 91 22 140/81 96 01/02/18 19:39 99.0 F 91 18 133/75 97 01/02/18 10:42 97.2 F L 86 20 134/66 98 01/02/18 09:00 90 Intake and Output 01/02/18 01/03/18 01/03/18 23:59 07:59 15:59 Intake Total 20 / 20 Output Total 850 / 850 500 / 500 Balance -830 / -830 -500 / -500 Intake: IV Fluids 20 / 20 Maxipime 2,000 MG In Water for 20 / 20 inj. (sterile) 20 ML @ 300 mls/ hr IVP Q12HR [facility] Rx#:[id number] Output: Urine 850 / 850 500 / 500 Other: Weight 80.3 kg Patient Weight 01/03/18 23:59 Weight 80.3 kg - Exam Exam: left foot and leg are warm to touch. ulceration posterior heel approx [id number] with fibrotic base. no fluctuance or purulence. no pain with PF/ DF of the ankle joint. xray-posterior heel osteomyelitis, previous fusion hindfoot/midfoot. - Lab Result Diagrams: 01/03/18 04:09 01/03/18 04:09 Labs: Abnormal lab results RBC 3.37 M/mcL (4.19-5.50) L 01/03/18 04:09 Hgb 9.1 g/dL (12.9-16.9) L 01/03/18 04:09 Hct 27.3 % (37.5-50.1) L 01/03/18 04:09 MCV 81.0 fL (83.0-100.0) L 01/03/18 04:09 MCH 27.0 pg (28.0-33.3) L 01/03/18 04:09 RDW 15.5 % (11.5-14.5) H 01/03/18 04:09 MPV 8.2 fL (9.4-12.4) L 01/03/18 04:09 Immature Gran % 4.2 % (0-4) H 01/03/18 04:09 Nucleated RBCs/100 WBC 0.2 /100 WBC (0) H 01/02/18 05:10 ESR 94 mm/hr (0-10) H 12/25/17 13:57 PT 14.5 Seconds (9.4-12.1) H 12/26/17 01:07 Sodium 132 mEq/L (136-145) L 01/03/18 04:09 Est GFR (Non-Af Amer) 53 (> 60) L 01/03/18 04:09 Glucose 111 mg/dL (70-105) H 01/03/18 04:09 Calculated Osmolality 278 (280-300) L 01/03/18 04:09 Calcium 8.2 mg/dL (8.6-10.3) L 01/03/18 04:09 AST 48 Units/L (13-39) H 12/26/17 01:07 C-Reactive Protein 254 mg/L (Less than 10) H 12/25/17 13:57 Serum Total Protein 6.3 g/dL (6.4-8.9) L 12/26/17 01:07 Albumin 3.0 g/dL (3.5-5.7) L 12/26/17 01:07 Albumin/Globulin Ratio 0.9 (1.1-2.2) L 12/26/17 01:07 HDL Cholesterol 36 mg/dL (40-59) L 12/26/17 01:07 Urine Clarity Cloudy (Clear) A 12/25/17 14:10 Urine Protein 30 mg/dL (Neg-Trace) H 12/25/17 14:10 Urine Blood Small (Negative) H 12/25/17 14:10 Ur Leukocyte Esterase Small (Negative) H 12/25/17 14:10 Urine Microscopic RBC 5-15 per hpf (0-3) H 12/25/17 14:10 Urine Microscopic WBC 15-30 per hpf (0-3) H 12/25/17 14:10 Ur Squamous Epith Cells Many per lpf (None-Few) H 12/25/17 14:10 Urine Yeast Few per hpf (None Seen) H 12/25/17 14:10 Ur Culture Indicated? NO. (NO) A 12/25/17 14:10 Vancomycin Trough 21 mcg/mL (5-10) H 01/02/18 20:25 - VTE Documentation of Mechanical Device: Intermittent pneumatic compression device Consult Discharge Plan - Plan Referrals: Cosme Martínez MD [Non-Partnered Physician] - 01/15/18 8:30 am (Please arrive @ 0815.) Slim Delacruz MD [Partnered Physician] - 01/23/18 11:45 am
--- NOTE | 2018-01-03 10:20 | Infectious Disease Progress No ---
Date of Encounter: 01/03/18 Time of Encounter: 10:16 - Assessment and Plan (1) Sepsis Current Visit: Yes Status: Resolved The patient had three SIRS criteria on admission. Likely secondary to left heel osteomyelitis or left hip etiology. Resolved. Afebrile. Tachycardia has resolved. WBC normal. Blood cultures drawn 12/25/17 are negative x 2 sets. Qualifiers: Sepsis type: sepsis due to unspecified organism Qualified Code(s): A41.9 - Sepsis, unspecified organism (2) Osteomyelitis Current Visit: Yes Status: Acute Location: Left calcaneus. Causative organism: Unclear. X-ray of the left foot shows chronic erosion over the posterior calcaneus. Bone scan showed findings consistent with OM of the calcaneus. Podiatry consulted and following. Planning to take the patient to surgery for calcanectomy if the vascular team can improve blood flow to the extremity. No cultures have been obtained. ESR 94, CRP 254. Wound care and activity restrictions per the podiatry team. Continue Vancomycin IV. Pharmacy to dose. Goal trough ~15. Continue Cefepime 2 grams IV Q12H. The patient has a documented "allergy" to Keflex, but reports adverse effects from medication and not true allergy. Will avoid fluoroquinolones due to the patient's history of Achilles tendon rupture with recent repair. Podiatry planning to take the patient to the OR on Sunday for debridement. Duration of treatment depends on the clinical picture. Monitor renal function and for drug toxicity and dose-adjust antibiotics. Qualifiers: Osteomyelitis type: unspecified type Osteomyelitis location: foot Laterality: right Qualified Code(s): M86.9 - Osteomyelitis, unspecified (3) Left hip pain Current Visit: Yes Status: Acute Etiology unclear. X-ray negative. CT scan negative for septic arthritis. May need to get ortho to evaluate. Pain management per the primary team. (4) Ulcer of left heel Current Visit: Yes Status: Acute Chronic. Podiatry consulted and following. Wound care per the podiatry team. Qualifiers: Non-pressure ulcer stage: unspecified non-pressure ulcer stage Qualified Code(s): L97.429 - Non-pressure chronic ulcer of left heel and midfoot with unspecified severity (5) CKD (chronic kidney disease) Current Visit: Yes Status: Resolved Known CKD stage III. Serum creatinine normal this morning, but trending up over the past couple of days. Not clear what the patient's baseline is. Continue to trend and monitor closely. Strict I's and O's. Dose-adjust antibiotics. Avoid nephrotoxins as able. Qualifiers: Chronic kidney disease stage: stage 3 (moderate) Qualified Code(s): N18.3 - Chronic kidney disease, stage 3 (moderate) (6) PAD (peripheral artery disease) Current Visit: Yes Status: Chronic ABIs consistent with moderate disease in the RLE and severe disease in the LLE. Vascular surgery consulted. Status post angiogram 12/28/17 with balloon angioplasty and stent placement. Status post left iliofemoral enarterectomy with anterior saphenous vein patch angioplasty and left femoral-AK popliteal bypass with reversed GSV. (7) Status post left foot surgery Current Visit: Yes Status: Acute Status post left foot reconstruction and Achilles tendon repair in June at [facility]. Will request records from the patient's certified optician. - Subjective Interval history: Patient seen and examined. No acute events noted overnight. Status post angiogram with balloon angioplasty and stent to the left external iliac artery by Dr. Delacruz. Status post left iliofemoral endarterectomy with anterior saphenous vein patch angioplasty and left femoral-AK popliteal bypass with reversed GSV 01/01/[address] Delacruz. Denies fevers or chills or rigors,Denies chest pain, shortness of breath, or cough. Denies nausea, vomiting, diarrhea, or constipation. Denies abdominal pain or urinary complaints. He denies any oral thrush or new skin lesions. He states the left hip pain is improved today. Reports some soreness at the surgical site, but otherwise denies pain. States his appetite is improving. Infect Dis PN-Objective Data - Labs CBC & Chem 7: 01/03/18 04:09 01/03/18 04:09 Labs: Laboratory Results - last 24 hr 01/02/18 01/03/18 01/03/18 20:25 04:09 04:09 WBC 10.6 RBC 3.37 L Hgb 9.1 L Hct 27.3 L MCV 81.0 L MCH 27.0 L MCHC 33.3 RDW 15.5 H Plt Count 330 MPV 8.2 L Immature Gran % 4.2 H Seg Neutrophils % 78.3 Lymphocytes % 11.0 Monocytes % 5.2 Eosinophils % 0.9 Basophils % 0.4 Neutrophils # 8.3 Lymphocytes # 1.2 Monocytes # 0.6 Eosinophils # 0.1 Basophils # 0.0 Sodium 132 L Potassium 4.2 Chloride 101 Carbon Dioxide 25 BUN 21 Creatinine 1.30 Est GFR ( Amer) > 60 Est GFR (Non-Af Amer) 53 L BUN/Creatinine Ratio 16 Glucose 111 H Calculated Osmolality 278 L Calcium 8.2 L Vancomycin Trough 21 H Exam - Constitutional Vitals: Temp Pulse Resp BP Pulse Ox 98.2 F 85 16 135/65 95 01/03/18 07:01 01/03/18 07:01 01/03/18 07:01 01/03/18 07:01 01/03/18 07:01 General appearance: average body habitus, cooperative, no acute distress - Head Head exam: Present: normocephalic - Eye Eye exam: Present: EOMI, normal appearance, PERRL Pupils: Present: normal accommodation - ENT ENT exam: Present: mucous membranes moist - Neck Neck exam: Present: normal inspection - Respiratory Respiratory exam: Present: CTAB. Absent: rales, respiratory distress, rhonchi, wheezes - Cardiovascular Cardiovascular exam: Present: RRR, +S1, +S2 - GI/Abdominal GI/Abdominal exam: Present: normal bowel sounds, soft. Absent: distended, tenderness - Extremities Exam Extremities exam: Present: pedal edema (Trace LLE), tenderness (LLE surgical site.). Absent: joint swelling Additional comments: Left medial thigh surgical site dressing with small amount of shadow drainage. No surrounding erythema or warmth noted. Mild tenderness noted with palpation. Left foot dressing C/D/I. - Neurological Exam Neurological exam: Present: alert, oriented X3, no focal deficits - Psychiatric Psychiatric exam: Present: normal affect, normal mood - Skin Skin exam: Present: dry, intact, normal color, warm - VTE Documentation of Mechanical Device: Intermittent pneumatic compression device Consult Discharge Plan - Plan Referrals: Cosme Martínez MD [Non-Partnered Physician] - 01/15/18 8:30 am (Please arrive @ 0815.) Slim Delacruz MD [Partnered Physician] - 01/23/18 11:45 am - Attending Attestation I examined this patient and my medical decision-making was reviewed with the Resident Physician. I agree with the documented findings, disposition and treatment plan as described except to the extent set forth below.
--- NOTE | 2018-01-03 10:59 | Vascular/Endovas Progress Note ---
Date of Encounter: 01/03/18 Time of Encounter: 10:57 - Assessment and plan (1) PAD (peripheral artery disease) Current Visit: Yes Status: Chronic Patient is doing well on postoperative day #2 following left femoral to above- the-knee popliteal artery bypass graft and iliofemoral endarterectomy. The perfusion to the left lower extremity and left foot in particular is dramatically improved. Patient may proceed with podiatric surgery as scheduled by Dr. Sagastume. (2) Osteomyelitis Current Visit: Yes Status: Acute Left heel osteomyelitis. Patient on dual intravenous antibiotics. Patient scheduled for left heel debridement tomorrow by podiatry. Qualifiers: Osteomyelitis type: unspecified type Osteomyelitis location: foot Laterality: right Qualified Code(s): M86.9 - Osteomyelitis, unspecified (3) CKD (chronic kidney disease) Current Visit: Yes Status: Resolved Patient has history of chronic kidney disease. Post-angiogram and Postoperatively the patient's BUN and creatinine are normal. Qualifiers: Chronic kidney disease stage: stage 3 (moderate) Qualified Code(s): N18.3 - Chronic kidney disease, stage 3 (moderate) - Subjective Interval history: The patient has no complaints. The patient had no issues overnight. Vital Signs, Last 4 Hours Temp Pulse Resp BP Pulse Ox 01/03/18 07:01 98.2 F 85 16 135/65 95 - Physical Examination General: Present: Conversant, No Apparent Distress HEENT: Present: Atraumatic Vascular: Present: Normal capillary refill, Color/Temperature (Left foot is warm and pink.), Surgical incisions (Left femoropopliteal bypass graft surgical incisions were inspected and the dressings were removed. Incisions are clean and dry. There is no signs of hematoma.), Other (Patient has biphasic to triphasic Doppler signals at the left ankle.) Abdomen: Present: Soft, Non-tender Skin: Present: No rashes noted on visualized skin - VTE Documentation of Mechanical Device: Intermittent pneumatic compression device Results 01/03/18 04:09 01/03/18 04:09 Lab Results, Last 24 hours 01/03/18 01/03/18 04:09 04:09 WBC 10.6 Hgb 9.1 L Hct 27.3 L Plt Count 330 Sodium 132 L Potassium 4.2 Chloride 101 Carbon Dioxide 25 BUN 21 Creatinine 1.30 Glucose 111 H Calcium 8.2 L Consult Discharge Plan - Plan Referrals: Cosme Martínez MD [Non-Partnered Physician] - 01/15/18 8:30 am (Please arrive @ 0815.) Slim Delacruz MD [Partnered Physician] - 01/23/18 11:45 am
--- NOTE | 2018-01-03 16:41 | Internal Med Progress Note ---
Date of Encounter: 01/03/18 Time of Encounter: 16:38 - Assessment and plan (1) Osteomyelitis Current Visit: Yes Status: Acute Assessment and plan: ID consulted, appreciate input. S/P balloon angioplasty 12/28/17. S/P Left Fem- Pop 01/01/18. Continue IV vancomycin and IV cefepime. Podiatry consulted; appreciate input; plan for debridement tomorrow. SW consulted as patient will likely need outpatient IV antibiotics for at least 8 weeks (pending podiatry recommendations tomorrow). Qualifiers: Osteomyelitis type: unspecified type Osteomyelitis location: foot Laterality: right Qualified Code(s): M86.9 - Osteomyelitis, unspecified (2) Hypo-osmolality and hyponatremia Current Visit: Yes Status: Acute Assessment and plan: Slightly improved. Could be in part to SSRI. He is asymptomatic. Patient now on diet. Recheck BMP in AM. (3) Anemia Current Visit: Yes Status: Acute Assessment and plan: Improved today. Most likely secondary to chronic disease and surgery. Recheck CBC in AM. Transfuse if hemoglobin drops below 7.0 or symptomatic. Qualifiers: Anemia type: due to chronic kidney disease Chronic kidney disease stage: stage 3 (moderate) Qualified Code(s): N18.3 - Chronic kidney disease, stage 3 (moderate); D63.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 (4) CKD (chronic kidney disease) Current Visit: Yes Status: Chronic Assessment and plan: Stage III CKD. Continue to use nephroprotective strategy and renally dose medications. Creatinine better than last known baseline. Qualifiers: Chronic kidney disease stage: stage 3 (moderate) Qualified Code(s): N18.3 - Chronic kidney disease, stage 3 (moderate) (5) Sepsis Current Visit: Yes Status: Resolved Assessment and plan: Resolved. Was likely secondary to osteomyeltitis of left foot. Continue IV vancomycin and IV cefepime as per above. Qualifiers: Sepsis type: sepsis due to unspecified organism Qualified Code(s): A41.9 - Sepsis, unspecified organism (6) PAD (peripheral artery disease) Current Visit: Yes Status: Chronic Assessment and plan: Vascular Surgery consulted; appreciate input. S/P balloon angioplasty of left external iliac artery on 12/28/17. S/P Left Fem-Pop on 01/01/18. (7) Hypertension Current Visit: Yes Status: Chronic Assessment and plan: Normotensive. Hold home losartan due to hyponatremia. Continue home medications with increased amlodipine dose. Monitor vitals. Qualifiers: Hypertension type: essential hypertension Qualified Code(s): I10 - Essential (primary) hypertension (8) DVT prophylaxis Current Visit: Yes Status: Acute Assessment and plan: Continue SQ heparin. - Time Spent With Patient Total time spent is greater than 50% in coordination of care (as documented) at patient's floor/unit and/or counseling patient: - Subjective Interval history: Patient had no acute events overnight. He is POD #2 s/p left fem-pop. He states LLE pain is controlled at this time. He is in good spirits today. He is looking forward to getting debridement done tomorrow and going home soon. He denies chest pain, SOB, fever, chills, nausea, or vomiting. He has no complaints at this time. - Constitutional Vitals: Temp Pulse Resp BP Pulse Ox 98.5 F 81 16 136/62 97 01/03/18 16:03 01/03/18 16:03 01/03/18 16:03 01/03/18 16:03 01/03/18 16:03 General appearance: Present: cooperative, A&O X 3, pleasant, no acute distress, answers questions appropriately - Respiratory Respiratory exam: Present: CTAB. Absent: accessory muscle use, rales, rhonchi, wheezes Additional comments: Normal WOB - Cardiovascular Cardiovascular exam: Present: RRR, +S1, +S2. Absent: diastolic murmur, gallop, rubs, systolic murmur Additional comments: Trace L > R pedal edema - GI/Abdominal GI/Abdominal exam: Present: normal bowel sounds, soft. Absent: distended, hepatomegaly, mass, splenomegaly, tenderness - Psychiatric Psychiatric exam: Present: normal affect, normal mood. Absent: agitated, anxious, depressed - Skin Skin exam: Present: dry, warm. Absent: cyanosis, erythema, rash Internal Medicine: Result - Labs CBC & Chem 7: 01/03/18 04:09 01/03/18 04:09 Labs: Short CBC 01/03/18 Range/Units 04:09 WBC 10.6 (4.3-11.1) K/mcL Hgb 9.1 L (12.9-16.9) g/dL Hct 27.3 L (37.5-50.1) % Plt Count 330 (140-400) K/mcL Neutrophils # 8.3 (1.6-8.9) K/mcL BMP 01/03/18 04:09 Sodium 132 L Potassium 4.2 Chloride 101 Carbon Dioxide 25 BUN 21 Creatinine 1.30 Glucose 111 H Calcium 8.2 L - ABG Interpretation ABG results: PT/INR, D-dimer PT 14.5 Seconds (9.4-12.1) H 12/26/17 01:07 Consult Discharge Plan - Plan Referrals: Cosme Martínez MD [Non-Partnered Physician] - 01/15/18 8:30 am (Please arrive @ 0815.) Slim Delacruz MD [Partnered Physician] - 01/23/18 11:45 am
[2018-01-03] MEDS: traMADol 50 MG TABLET PO PRN ×2 (16:46→23:59)
[2018-01-04] MEDS: *HR* HYDROcodone/Acet 5/325 mg TABLET PO PRN ×2 (03:51→20:00)
[2018-01-04] MEDS: *HR* Heparin 5,000 UNIT/ML VIAL SQ SCH (03:52)
[2018-01-04 05:02] LABS: Basophils # 0.1 K/mcL (0.0-0.2); Basophils % 0.5 %; Eosinophils # 0.1 K/mcL (0.0-0.6); Eosinophils % 1.3 %; Hematocrit 26.7 % (37.5-50.1); Immature Granulocytes % 4.8 % (0-4); Lymphocytes % 9.1 %; Mean Corpuscular HGB Conc 33.7 g/dL (31.6-35.5); Mean Corpuscular Hemoglobin 26.9 pg (28.0-33.3); Mean Corpuscular Volume 79.9 fL (83.0-100.0); Mean Platelet Volume 8.4 fL (9.4-12.4); Monocytes # 0.5 K/mcL (0.0-1.3); Monocytes % 4.7 %; Neutrophils # 8.9 K/mcL (1.6-8.9); Platelet Count 371 K/mcL (140-400); Red Blood Count 3.34 M/mcL (4.19-5.50); Red Cell Distribution Width 15.4 % (11.5-14.5); Segmented Neutrophils % 79.6 %
[2018-01-04 05:21] LABS: BUN/Creatinine Ratio 16 (6-26); Blood Urea Nitrogen 21 mg/dL (8-23); Calcium 8.3 mg/dL (8.6-10.3); Carbon Dioxide 26 mEq/L (23-29); Chloride 101 mEq/L (98-107); Glucose 107 mg/dL (70-105); Osmolality,Calculated 277 (280-300); Sodium 132 mEq/L (136-145); eGFR For African Americans > 60 (> 60); eGFR For Non-African Americans 54 (> 60)
[2018-01-04] MEDS: Cefepime HCl 2,000 MG in Water for inj. (sterile) 20 ML 20 ML IVP SCH ×2 (05:52→17:39)
--- NOTE | 2018-01-04 06:33 | Anesthesia Evaluation PreOp ---
Date of Encounter: 01/04/18 Time of Encounter: 18:30 - Past History Planned Operation: Left Partial Calcanectomy, Closure Wound Cardiac History: HTN, Hyperlipidemia, Other (PVD s/p Balloon Angioplasty 5- s/ p Left Fem Pop 5-29, Anemia) Pulmonary History: Former smoker [employer] History: Denies Any Significant HX, Other (Peripheral Neuropathy) Other Medical History: Renal (CKD), Other (Hyponatremia) Anesthesia History: No Prior Anesthetic Complications Alcohol Use: none Drug use: none Medications and Allergies Donepezil [Aricept] 5 mg PO DAILY 12/25/17 [History] InFLIXimab [Remicade] 100 mg IV AD 12/25/17 [History] Losartan [Cozaar] 25 mg PO DAILY 12/25/17 [History] Kerrick-3/Dha/Epa/Fish Oil [Fish Oil 1,000 mg Softgel] 1 cap PO DAILY 12/25/17 [ History] Paricalcitol [Zemplar] 1 mcg PO Q72H 12/25/17 [History] Sertraline [Zoloft] 50 mg PO DAILY 12/25/17 [History] Tramadol HCl [Ultram] 50 mg PO QID PRN 12/25/17 [History] amLODIPine [Norvasc] 5 mg PO DAILY 12/25/17 [History] 3 Allergy/AdvReac Type Severity Reaction Status Date / Time cephalexin [From Keflex] Allergy Hives Verified 12/25/17 14:32 Penicillins Allergy Hives Verified 12/25/17 14:32 - Meds/Allergy Pre-op Review Medications Reviewed: Yes Allergies Reviewed: Yes Beta Blockers on Current Med List: Yes (on Labetalol prn) Anesthesia Results - Labs 01/04/18 04:36 01/04/18 04:36 - Imaging EKG: report reviewed (SR) Anesthesia Exam Vital Signs/O2 Sat/Glucose, Most Current Temp Pulse Resp BP Pulse Ox 01/04/18 03:51 106 01/04/18 03:01 98.8 F 101 16 145/63 96 Height: 5'6 Weight: 179 lbs NPO (# of Hours): MN Pain Scale: 0 - HEENT Pupil (Motor): Pupils equal, EOMI Mallampati: II Teeth: Normal Oral Opening: Less than or equal to 3 - [employer] LOC: Oriented [employer] Motor: Normal RUE, Normal LUE, Normal RLE, Normal LLE, Normal Face [employer] Sensory: Normal: RUE, LUE, RLE, Face, Deficit: LLE (paresthesia) - Cardiac Rhythm: Regular Murmur: None JVD: No Carotid Bruit: No - Pulmonary Breath Sounds: bilateral Clear Respiratory Effort: Symmetrical Anesthesia Assess/Plan ASA Score: 3 Modified Melquiades Scale for Level of Consciousness: Cooperative, oriented, and tranquil Anesthetic Plan: MAC Monitoring Plan: Standard Monitors Recovery Plan: Other (Discussed MAC, possible GA, agrees to proceed)
[2018-01-04] MEDS: *HR* OxyCODONE Immed Rel 5 MG TABLET PO PRN ×3 (08:09→23:24)
[2018-01-04] MEDS: amLODIPine 5 MG TABLET PO SCH (08:09)
[2018-01-04] MEDS: Sennosides 8.6 MG TABLET PO SCH ×2 (08:09→20:00)
--- NOTE | 2018-01-04 09:40 | Vascular/Endovas Progress Note ---
Date of Encounter: 01/04/18 Time of Encounter: 08:30 - Assessment and plan (1) PAD (peripheral artery disease) Current Visit: Yes Status: Chronic Patient is doing well on postoperative day #3 following left femoral to above- the-knee popliteal artery bypass graft and iliofemoral endarterectomy. The perfusion to the left lower extremity and left foot in particular is dramatically improved. Patient for podiatric surgery today as scheduled by Dr. Sagastume. (2) Osteomyelitis Current Visit: Yes Status: Acute Left heel osteomyelitis. Patient on dual intravenous antibiotics. Patient scheduled for left heel debridement today by podiatry. Qualifiers: Osteomyelitis type: other chronic Osteomyelitis location: foot Laterality : left Qualified Code(s): M86.672 - Other chronic osteomyelitis, left ankle and foot (3) CKD (chronic kidney disease) Current Visit: Yes Status: Resolved Patient has history of chronic kidney disease. Post-angiogram and Postoperatively the patient's BUN and creatinine are normal. Qualifiers: Chronic kidney disease stage: stage 3 (moderate) Qualified Code(s): N18.3 - Chronic kidney disease, stage 3 (moderate) - Subjective Interval history: The patient has no complaints. The patient had no issues overnight. Patient is for podiatric surgery for left heel ulcer later today Vital Signs, Last 4 Hours Temp Pulse Resp BP Pulse Ox 01/04/18 08:02 98.2 F 85 19 124/57 96 01/04/18 08:00 90 - Physical Examination General: Present: Conversant, No Apparent Distress Vascular: Present: Normal capillary refill, Color/Temperature (Left foot warm and pink), Surgical incisions (Clean and dry), Other (Doppler signals at left ankle) - VTE Documentation of Mechanical Device: Intermittent pneumatic compression device Results 01/04/18 04:36 01/04/18 04:36 Lab Results, Last 24 hours 01/04/18 01/04/18 04:36 04:36 WBC 11.2 H Hgb 9.0 L Hct 26.7 L Plt Count 371 Sodium 132 L Potassium 4.0 Chloride 101 Carbon Dioxide 26 BUN 21 Creatinine 1.28 Glucose 107 H Calcium 8.3 L Consult Discharge Plan - Plan Referrals: Cosme Martínez MD [Non-Partnered Physician] - 01/15/18 8:30 am (Please arrive @ 0815.) Slim Delacruz MD [Partnered Physician] - 01/23/18 11:45 am
--- NOTE | 2018-01-04 09:49 | Infectious Disease Progress No ---
Date of Encounter: 01/04/18 Time of Encounter: 09:47 - Assessment and Plan (1) Sepsis Current Visit: Yes Status: Resolved The patient had three SIRS criteria on admission. Likely secondary to left heel osteomyelitis. Resolved. Afebrile. Tachycardia has resolved. WBC normal. Blood cultures drawn 12/25/17 are negative x 2 sets. Qualifiers: Sepsis type: sepsis due to unspecified organism Qualified Code(s): A41.9 - Sepsis, unspecified organism (2) Osteomyelitis Current Visit: Yes Status: Acute Location: Left calcaneus. Causative organism: Unclear. X-ray of the left foot shows chronic erosion over the posterior calcaneus. Bone scan showed findings consistent with OM of the calcaneus. Podiatry consulted and following. Planning to take the patient to surgery for calcanectomy later today. Please obtain bone cultures if able as tissue cultures will likely be unyielding since the patient has been on IV antibiotics for several days. No cultures have been obtained. ESR 94, CRP 254. Wound care and activity restrictions per the podiatry team. Continue Vancomycin IV. Pharmacy to dose. Goal trough ~15. Continue Cefepime 2 grams IV Q12H. The patient has a documented "allergy" to Keflex, but reports adverse effects from medication and not true allergy. Will avoid fluoroquinolones due to the patient's history of Achilles tendon rupture with recent repair. Has tolerated Cefepime without a problem. Duration of treatment depends on the clinical picture. Monitor renal function and for drug toxicity and dose-adjust antibiotics. Further antibiotic and OPAT recommendations pending lab/culture results. Qualifiers: Osteomyelitis type: other chronic Osteomyelitis location: foot Laterality : left Qualified Code(s): M86.672 - Other chronic osteomyelitis, left ankle and foot (3) Left hip pain Current Visit: Yes Status: Acute Etiology unclear. X-ray negative. CT scan negative for septic arthritis. May need to get ortho to evaluate. Pain management per the primary team. (4) Ulcer of left heel Current Visit: Yes Status: Acute Chronic. Podiatry consulted and following. Wound care per the podiatry team. 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 Serum creatinine normal. Not clear what the patient's baseline is. Continue to trend and monitor closely. Strict I's and O's. Dose-adjust antibiotics. Avoid nephrotoxins as able. Qualifiers: Chronic kidney disease stage: stage 3 (moderate) Qualified Code(s): N18.3 - Chronic kidney disease, stage 3 (moderate) (6) PAD (peripheral artery disease) Current Visit: Yes Status: Chronic ABIs consistent with moderate disease in the RLE and severe disease in the LLE. Vascular surgery consulted. Status post angiogram 12/28/17 with balloon angioplasty and stent placement. Status post left iliofemoral enarterectomy with anterior saphenous vein patch angioplasty and left femoral-AK popliteal bypass with reversed GSV. (7) Status post left foot surgery Current Visit: Yes Status: Acute Status post left foot reconstruction and Achilles tendon repair in June at [facility]. 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 - Subjective Interval history: Patient seen and examined. No acute events noted overnight. Status post angiogram with balloon angioplasty and stent to the left external iliac artery by Dr. Delacruz. Status post left iliofemoral endarterectomy with anterior saphenous vein patch angioplasty and left femoral-AK popliteal bypass with reversed GSV 01/01/[address] Delacruz. Denies fevers or chills or rigors. Denies chest pain, shortness of breath, or cough. Denies nausea, vomiting, diarrhea, or constipation. Denies abdominal pain or urinary complaints. He denies any oral thrush or new skin lesions. He states the left hip pain is improved today. Reports some soreness at the surgical site, but otherwise denies pain. States his appetite is improving. Is scheduled for debridement of the left calcaneus later today. Infect Dis PN-Objective Data - Labs CBC & Chem 7: 01/04/18 04:36 01/04/18 04:36 Labs: Laboratory Results - last 24 hr 01/04/18 01/04/18 01/04/18 04:36 04:36 05:45 WBC 11.2 H RBC 3.34 L Hgb 9.0 L Hct 26.7 L MCV 79.9 L MCH 26.9 L MCHC 33.7 RDW 15.4 H Plt Count 371 MPV 8.4 L Immature Gran % 4.8 H Seg Neutrophils % 79.6 Lymphocytes % 9.1 Monocytes % 4.7 Eosinophils % 1.3 Basophils % 0.5 Neutrophils # 8.9 Lymphocytes # 1.0 Monocytes # 0.5 Eosinophils # 0.1 Basophils # 0.1 Sodium 132 L Potassium 4.0 Chloride 101 Carbon Dioxide 26 BUN 21 Creatinine 1.28 Est GFR ( Amer) > 60 Est GFR (Non-Af Amer) 54 L BUN/Creatinine Ratio 16 Glucose 107 H POC Glucose 112 H Calculated Osmolality 277 L Calcium 8.3 L Exam - Constitutional Vitals: Temp Pulse Resp BP Pulse Ox 98.2 F 85 19 124/57 96 01/04/18 08:02 01/04/18 08:02 01/04/18 08:02 01/04/18 08:02 01/04/18 08:02 General appearance: average body habitus, cooperative, no acute distress - Head Head exam: Present: atraumatic, normal inspection, normocephalic - Eye Eye exam: Present: EOMI, normal appearance, PERRL Pupils: Present: normal accommodation - ENT ENT exam: Present: mucous membranes moist - Neck Neck exam: Present: normal inspection - Respiratory Respiratory exam: Present: CTAB. Absent: rales, respiratory distress, rhonchi, wheezes - Cardiovascular Cardiovascular exam: Present: RRR, +S1, +S2 - GI/Abdominal GI/Abdominal exam: Present: normal bowel sounds, soft. Absent: distended, tenderness - Extremities Exam Extremities exam: Present: pedal edema (1+ LLE), tenderness (Left thigh surgical site). Absent: joint swelling Additional comments: LEft thigh surgical site dressing with small amount of shadow drainage. No erythema or warmth noted surrounding the dressing. Left foot dressing C/D/I. - Neurological Exam Neurological exam: Present: alert, oriented X3, no focal deficits - Psychiatric Psychiatric exam: Present: normal affect, normal mood - Skin Skin exam: Present: dry, intact, normal color, warm - VTE Documentation of Mechanical Device: Intermittent pneumatic compression device Consult Discharge Plan - Plan Referrals: Cosme Martínez MD [Non-Partnered Physician] - 01/15/18 8:30 am (Please arrive @ 0815.) Slim Delacruz MD [Partnered Physician] - 01/23/18 11:45 am - Attending Attestation I examined this patient and my medical decision-making was reviewed with the Resident Physician. I agree with the documented findings, disposition and treatment plan as described except to the extent set forth below.
[2018-01-04] MEDS: traMADol 50 MG TABLET PO PRN (14:19)
[2018-01-04] MEDS ORDERED: Lidocaine -MPF 2% 2 ML VIAL ONE ×2 (14:55→16:39)
[2018-01-04] MEDS ORDERED: Vancomycin 1,000 MG, Sodium Chloride IRRigation 1,000 ML IR ONE ×2 (14:55→17:19)
[2018-01-04] MEDS ORDERED: *HR* FentaNYL (PF) 100 MCG/2 ML VIAL ONE (14:55)
[2018-01-04] MEDS ORDERED: Ondansetron 4 MG/2 ML VIAL ONE (14:55)
[2018-01-04] MEDS ORDERED: *HR* Propofol 200 MG/20 ML VIAL IVP ONE (14:55)
[2018-01-04] MEDS ORDERED: Bupivacaine-MPF 0.25% 10 ML VIAL ONE (15:07)
[2018-01-04] MEDS ORDERED: Lidocaine 1% 20 ML MDV ONE (15:07)
[2018-01-04] MEDS ORDERED: Dexamethasone 4 MG/ML VIAL ONE (16:01)
--- NOTE | 2018-01-04 17:01 | Operative Note ---
Pre-op diagnosis: Chronic ulceration posterior heel, osteomyelitis Post-op diagnosis: same Procedure: partial left calcanectomy rearrangement of soft tissue for closure of wound left heel application of PRP Implants: none Complications: none Anesthesia: GETA Local Anesthetics: 1% Lidocaine HCL SubQ (cc) Surgeon: Tristen Sagastume Was there an carpenter assistant installer present: No Estimated blood loss (cc): 75 Specimen: micro-left heel bone, path-left heel bone, left heel bone clear margin Condition: stable Disposition: PACU Procedure in Detail: Indications: A 82-year-old male with history of Achilles tendon rupture repair and subsequent nonhealing wound posterior aspect of heel measuring [id number] and osteomyelitis of the left heel. Patient is status post bypass revascularization. Patient moving forward with above procedures after having the nature of the procedures, risks first benefits potential complications and consequences of surgery discussed at length. We discussed that despite having surgery, he could have continued wound healing problems, lack of pushoff strength, loss of functionality, developed a fracture of the heel bone, heart attack, , loss of limb need for further surgery in addition to other complications. No guarantees were made as to the outcome. All of his questions were answered and the informed consent was signed. Patient was taken from the preoperative holding area and operating room placed on operating room table in the lateral position. The left lower extremity was scrubbed prepped and draped in the usual sterile fashion no tourniquet was used during the entire procedure. Left partial calcanectomy. Attention was directed to the posterior aspect of the patient's left heel where #15 blade was used to make an incision over the Achilles tendon and once down to the level of the Achilles tendon the paratenon was incised and reflected. Scar tissue was noted to be present. Once down to the level of the Achilles tendon the Achilles tendon was incised and a portion was reflected centrally exposing the superior aspect of the calcaneus bone. The area of the ulceration was excised full-thickness. It should be noted that the bone overlying the wound area and the posterior aspect of the calcaneus was felt to be soft. The sagittal saw was used to debride bone dorsally and posterior in an inferior direction. The ronjeur and rasp were used to smooth the edges. the lateral and medial most attachment to the achilles tendon was left intact. Bone from the left heel was sent to pathology as well as a clear margin of bone from the calcaneus. Bone from the left heel was also sent to microbiology for culture. The pulse lavage with vancomycin was used to flush the area. No purulence was observed during the entire procedure. No devitalized tissue was left behind and was felt to be completely excised. With bone debrided until there was healthy bleeding bone, the Achilles tendon was then sutured together from lateral to medial using Vicryl and Ethibond. A #5 Ethibond was thrown through the calcaneus bone and tied was used to cinch the Achilles tendon back down to the bone. Adequate purchase of the Achilles tendon and the posterior aspect of the calcaneus was felt to be present. Negative Del Toro sign was present at the conclusion of the procedure. The C- arm was utilized during the case when the cuts on the calcaneus were being made. Soft tissue rearragement for closure of wound. With no devitalized tissue present and the wound excised. A closure of the wound was performed with a hurricane type incision extending tangential to the previous ulceration site was made towards the plantar lateral foot. The skin at the previous ulceration site was undermined full-thickness and the distal aspect of the flap incision was full-thickness. The posterior aspect of the heel skin was then able to be rotated and opposed covering the site of the previous wound. 2-0 Vicryl was used to reapproximate subcutaneous tissue. 2-0 and 3-0 Prolene were utilized to reapproximate the skin in this area. 0 prolene was used to reapproximate the most distal aspect of the skin in a vertical matress type fashion. The site had been completely closed. Prior to complete closure PRP was injected at the Achilles tendon insertion site and at the site of previous wound. Adequate hemostasis was present at the surgical site. Postoperative bandaging included adaptic, 4 x 4 gauze, Kerlix and the patient was placed in an adequately padded posterior splint. Patient was given strict instructions to remain nonweightbearing to the left lower extremity. The patient tolerated the anesthesia and the procedure well. He was escorted the recovery room with vital signs stable and vascular status intact to the left lower extremity. He will return to the floor where he will continue IV antibiotics.
[2018-01-04] MEDS ORDERED: traMADol 50 MG TABLET PO PRN (17:19)
[2018-01-04] MEDS ORDERED: Acetaminophen 325 MG TABLET PO PRN (17:19)
[2018-01-04] MEDS ORDERED: Ondansetron 4 MG/2 ML VIAL IVP PRN (17:19)
[2018-01-04] MEDS ORDERED: Naloxone 0.4 MG/ML INJ IVP PRN (17:19)
[2018-01-04] MEDS ORDERED: *HR* Labetalol 20 MG/4 ML SYRINGE IVP PRN (17:19)
[2018-01-04] MEDS ORDERED: Famotidine 20 MG TABLET PO PRN (17:19)
[2018-01-04] MEDS ORDERED: *HR* FentaNYL (PF) 100 MCG/2 ML VIAL IVP STA (18:20)
--- NOTE | 2018-01-04 18:23 | Internal Med Progress Note ---
Date of Encounter: 01/04/18 Time of Encounter: 18:21 - Assessment and plan (1) Osteomyelitis Current Visit: Yes Status: Acute Assessment and plan: ID consulted, appreciate input. S/P balloon angioplasty 12/28/17. S/P Left Fem- Pop 01/01/18. Continue IV vancomycin and IV cefepime. Podiatry consulted; appreciate input. S/P left heel debridement 01/04/18. SW working on home IV antibiotics. Will add IV fentanyl for breakthrough pain. Qualifiers: Osteomyelitis type: other chronic Osteomyelitis location: foot Laterality : left Qualified Code(s): M86.672 - Other chronic osteomyelitis, left ankle and foot (2) Hypo-osmolality and hyponatremia Current Visit: Yes Status: Acute Assessment and plan: Stable and asymptomatic. Could be in part to SSRI. Patient now back on diet. Recheck BMP in AM. (3) Anemia Current Visit: Yes Status: Acute Assessment and plan: Stable. Most likely secondary to chronic disease and surgery. Recheck CBC in AM. Transfuse if hemoglobin drops below 7.0 or symptomatic. Qualifiers: Anemia type: due to chronic kidney disease Chronic kidney disease stage: stage 3 (moderate) Qualified Code(s): N18.3 - Chronic kidney disease, stage 3 (moderate); D63.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 (4) CKD (chronic kidney disease) Current Visit: Yes Status: Chronic Assessment and plan: Stage III CKD. Continue to use nephroprotective strategy and renally dose medications. Creatinine better than last known baseline. Qualifiers: Chronic kidney disease stage: stage 3 (moderate) Qualified Code(s): N18.3 - Chronic kidney disease, stage 3 (moderate) (5) Hypertension Current Visit: Yes Status: Chronic Assessment and plan: Normotensive. Hold home losartan due to hyponatremia. Continue home medications with increased amlodipine dose. Continue labetalol PRN. Monitor vitals closely. Qualifiers: Hypertension type: essential hypertension Qualified Code(s): I10 - Essential (primary) hypertension (6) PAD (peripheral artery disease) Current Visit: Yes Status: Chronic Assessment and plan: Vascular Surgery consulted; appreciate input. S/P balloon angioplasty of left external iliac artery on 12/28/17. S/P Left Fem-Pop on 01/01/18. (7) Sepsis Current Visit: Yes Status: Resolved Assessment and plan: Resolved. Was likely secondary to osteomyeltitis of left foot. Continue IV vancomycin and IV cefepime as per above. Qualifiers: Sepsis type: sepsis due to unspecified organism Qualified Code(s): A41.9 - Sepsis, unspecified organism (8) DVT prophylaxis Current Visit: Yes Status: Acute Assessment and plan: Continue SQ heparin. - Time Spent With Patient Total time spent is greater than 50% in coordination of care (as documented) at patient's floor/unit and/or counseling patient: less than 15 minutes - Subjective Interval history: Patient had no acute events overnight. He is POD #3 s/p left fem-pop by vascular surgery. He is POD #0 s/p left heel debridement by podiatry. He states LLE pain is severe at this time. He is still in good spirits today. He denies chest pain, SOB, fever, chills, nausea, or vomiting. He has no other complaints at this time. - Constitutional Vitals: Temp Pulse Resp BP Pulse Ox 97.8 F 87 18 149/82 98 01/04/18 17:29 01/04/18 17:29 01/04/18 17:29 01/04/18 17:29 01/04/18 17:29 General appearance: Present: cooperative, mild distress (due to pain), A&O X 3, pleasant, answers questions appropriately - Respiratory Respiratory exam: Present: CTAB. Absent: accessory muscle use, rales, rhonchi, wheezes Additional comments: Normal WOB - Cardiovascular Cardiovascular exam: Present: RRR, +S1, +S2. Absent: diastolic murmur, gallop, rubs, systolic murmur Additional comments: No BLE edema - GI/Abdominal GI/Abdominal exam: Present: normal bowel sounds, soft. Absent: distended, hepatomegaly, mass, splenomegaly, tenderness - Extremities Exam Additional comments: Left foot in bandaging, can move toes - Psychiatric Psychiatric exam: Present: normal affect, normal mood. Absent: agitated, anxious, depressed - Skin Skin exam: Present: dry, intact, warm. Absent: cyanosis, rash Internal Medicine: Result - Labs CBC & Chem 7: 01/04/18 04:36 01/04/18 04:36 Labs: Short CBC 01/04/18 Range/Units 04:36 WBC 11.2 H (4.3-11.1) K/mcL Hgb 9.0 L (12.9-16.9) g/dL Hct 26.7 L (37.5-50.1) % Plt Count 371 (140-400) K/mcL Neutrophils # 8.9 (1.6-8.9) K/mcL BMP 01/04/18 04:36 Sodium 132 L Potassium 4.0 Chloride 101 Carbon Dioxide 26 BUN 21 Creatinine 1.28 Glucose 107 H Calcium 8.3 L - ABG Interpretation ABG results: PT/INR, D-dimer PT 14.5 Seconds (9.4-12.1) H 12/26/17 01:07 Consult Discharge Plan - Plan Referrals: Cosme Martínez MD [Non-Partnered Physician] - 01/15/18 8:30 am (Please arrive @ 0815.) Slim Delacruz MD [Partnered Physician] - 01/23/18 11:45 am
[2018-01-05] MEDS: *HR* HYDROcodone/Acet 5/325 mg TABLET PO PRN ×4 (01:56→23:36)
[2018-01-05 04:17] LABS: Basophils % 0.1 %; Eosinophils % 0.1 %; Hematocrit 25.5 % (37.5-50.1); Hemoglobin 8.4 g/dL (12.9-16.9); Immature Granulocytes % 2.6 % (0-4); Lymphocytes # 0.7 K/mcL (0.6-4.6); Lymphocytes % 4.9 %; Mean Corpuscular HGB Conc 32.9 g/dL (31.6-35.5); Mean Corpuscular Hemoglobin 26.8 pg (28.0-33.3); Mean Corpuscular Volume 81.2 fL (83.0-100.0); Mean Platelet Volume 8.5 fL (9.4-12.4); Monocytes # 0.6 K/mcL (0.0-1.3); Monocytes % 4.1 %; Neutrophils # 13.1 K/mcL (1.6-8.9); Platelet Count 401 K/mcL (140-400); Red Blood Count 3.14 M/mcL (4.19-5.50); Red Cell Distribution Width 15.5 % (11.5-14.5); Segmented Neutrophils % 88.2 %
[2018-01-05 04:29] LABS: BUN/Creatinine Ratio 20 (6-26); Blood Urea Nitrogen 26 mg/dL (8-23); Calcium 8.3 mg/dL (8.6-10.3); Carbon Dioxide 25 mEq/L (23-29); Chloride 100 mEq/L (98-107); Glucose 147 mg/dL (70-105); Osmolality,Calculated 279 (280-300); Potassium 4.6 mEq/L (3.5-5.1); Sodium 131 mEq/L (136-145); eGFR For African Americans > 60 (> 60); eGFR For Non-African Americans 52 (> 60)
[2018-01-05] MEDS: *HR* OxyCODONE Immed Rel 5 MG TABLET PO PRN ×3 (05:19→19:49)
[2018-01-05] MEDS: Cefepime HCl 2,000 MG in Water for inj. (sterile) 20 ML 20 ML IVP SCH ×2 (05:20→16:47)
[2018-01-05] MEDS: *HR* Heparin 5,000 UNIT/ML VIAL SQ SCH ×2 (05:20→16:47)
[2018-01-05] MEDS: Sennosides 8.6 MG TABLET PO SCH ×2 (08:30→19:49)
[2018-01-05] MEDS: amLODIPine 5 MG TABLET PO SCH (08:30)
[2018-01-05] MEDS ORDERED: 0.9 % Sodium Chloride 1,000 ML IVC ONE (15:39)
--- NOTE | 2018-01-05 15:50 | Internal Med Progress Note ---
Date of Encounter: 01/05/18 Time of Encounter: 15:48 - Assessment and plan (1) Osteomyelitis Current Visit: Yes Status: Acute Assessment and plan: ID consulted, appreciate input. S/P balloon angioplasty 12/28/17. S/P Left Fem- Pop 01/01/18. Continue IV vancomycin and IV cefepime. Podiatry consulted; appreciate input. S/P left heel debridement 01/04/18. SW working on home IV antibiotics. Continue pain control. Qualifiers: Osteomyelitis type: other chronic Osteomyelitis location: foot Laterality : left Qualified Code(s): M86.672 - Other chronic osteomyelitis, left ankle and foot (2) Hypo-osmolality and hyponatremia Current Visit: Yes Status: Acute Assessment and plan: Stable and asymptomatic. Could be in part to SSRI. Patient now back on diet. Recheck BMP in AM. (3) Anemia Current Visit: Yes Status: Acute Assessment and plan: Slightly down, likely due to surgery. Recheck CBC in AM. Transfuse if hemoglobin drops below 7.0 or symptomatic. Qualifiers: Anemia type: due to chronic kidney disease Chronic kidney disease stage: stage 3 (moderate) Qualified Code(s): N18.3 - Chronic kidney disease, stage 3 (moderate); D63.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 (4) CKD (chronic kidney disease) Current Visit: Yes Status: Chronic Assessment and plan: Stage III CKD. Mild bump up in creatinine; will give 1L NS bolus and encourage to maintain PO hydration. Continue to use nephroprotective strategy and renally dose medications. Creatinine still better than last known baseline. Qualifiers: Chronic kidney disease stage: stage 3 (moderate) Qualified Code(s): N18.3 - Chronic kidney disease, stage 3 (moderate) (5) Hypertension Current Visit: Yes Status: Chronic Assessment and plan: Normotensive. Hold home losartan due to hyponatremia. Continue home medications with increased amlodipine dose. Continue labetalol PRN. Monitor vitals closely. Qualifiers: Hypertension type: essential hypertension Qualified Code(s): I10 - Essential (primary) hypertension (6) PAD (peripheral artery disease) Current Visit: Yes Status: Chronic Assessment and plan: Vascular Surgery consulted; appreciate input. S/P balloon angioplasty of left external iliac artery on 12/28/17. S/P Left Fem-Pop on 01/01/18. (7) Sepsis Current Visit: Yes Status: Resolved Assessment and plan: Resolved. Was likely secondary to osteomyeltitis of left foot. Continue IV vancomycin and IV cefepime as per above. Qualifiers: Sepsis type: sepsis due to unspecified organism Qualified Code(s): A41.9 - Sepsis, unspecified organism (8) DVT prophylaxis Current Visit: Yes Status: Acute Assessment and plan: Continue SQ heparin. - Time Spent With Patient Total time spent is greater than 50% in coordination of care (as documented) at patient's floor/unit and/or counseling patient: less than 15 minutes - Subjective Interval history: Patient had no acute events overnight. He is POD #4 s/p left fem-pop by vascular surgery. He is POD #1 s/p left heel debridement by podiatry. He states LLE pain is much better today. He is still in good spirits today. He denies chest pain, SOB, fever, chills, nausea, or vomiting. He has no other complaints at this time. - Constitutional Vitals: Temp Pulse Resp BP Pulse Ox 98.3 F 88 20 142/62 99 01/05/18 10:54 01/05/18 10:54 01/05/18 10:54 01/05/18 10:54 01/05/18 10:54 General appearance: Present: cooperative, A&O X 3, pleasant, no acute distress, answers questions appropriately - Respiratory Respiratory exam: Present: CTAB. Absent: accessory muscle use, rales, rhonchi, wheezes Additional comments: Normal WOB - Cardiovascular Cardiovascular exam: Present: RRR, +S1, +S2. Absent: diastolic murmur, gallop, rubs, systolic murmur Additional comments: No BLE edema (left foot bandaged) - GI/Abdominal GI/Abdominal exam: Present: normal bowel sounds, soft. Absent: distended, hepatomegaly, mass, splenomegaly, tenderness - Extremities Exam Additional comments: Left foot bandaged, able to wiggle toes - Psychiatric Psychiatric exam: Present: normal affect, normal mood. Absent: agitated, anxious, depressed - Skin Skin exam: Present: dry, intact, warm. Absent: cyanosis, rash Internal Medicine: Result - Labs CBC & Chem 7: 01/05/18 03:30 01/05/18 03:30 Labs: Short CBC 01/05/18 Range/Units 03:30 WBC 14.8 H (4.3-11.1) K/mcL Hgb 8.4 L (12.9-16.9) g/dL Hct 25.5 L (37.5-50.1) % Plt Count 401 H (140-400) K/mcL Neutrophils # 13.1 H (1.6-8.9) K/mcL BMP 01/05/18 03:30 Sodium 131 L Potassium 4.6 Chloride 100 Carbon Dioxide 25 BUN 26 H Creatinine 1.32 H Glucose 147 H Calcium 8.3 L - ABG Interpretation ABG results: PT/INR, D-dimer PT 14.5 Seconds (9.4-12.1) H 12/26/17 01:07 - Impressions Impressions Fluoroscopy 01/04/18 19:01 IMPRESSION: Intraprocedural fluoroscopic spot images as above. See separate procedure report for more information. D/ / Valentin Anaya MD / Valentin Anaya MD Interpreting Provider: Valentin Anaya MD Foot X-Ray 01/04/18 19:01 IMPRESSION: Intraprocedural fluoroscopic spot images as above. See separate procedure report for more information. D/ / Valentin Anaya MD / Valentin Anaya MD Interpreting Provider: Valentin Anaya MD Consult Discharge Plan - Plan Referrals: Cosme Martínez MD [Non-Partnered Physician] - 01/15/18 8:30 am (Please arrive @ 0815.) Slim Delacruz MD [Partnered Physician] - 01/23/18 11:45 am
--- NOTE | 2018-01-05 20:58 | Event Note ---
Date of Encounter: 01/05/18 Time of Encounter: 20:56 Operative note from OR yesterday reviewed. Vascular surgery will remain available as needed. Pt will be seen in out patient clinic in approximately 2 weeks. Reconsult as desired. Ok for transfer/discharge from vascular perspective.
[2018-01-06] MEDS: *HR* FentaNYL (PF) 100 MCG/2 ML VIAL IVP PRN ×2 (00:53→14:10)
[2018-01-06 03:28] LABS: Basophils % 0.3 %; Eosinophils # 0.3 K/mcL (0.0-0.6); Eosinophils % 2.4 %; Hematocrit 22.9 % (37.5-50.1); Hemoglobin 7.6 g/dL (12.9-16.9); Immature Granulocytes % 2.5 % (0-4); Immature Platelets 0.8 % (1.1-6.1); Lymphocytes # 1.3 K/mcL (0.6-4.6); Lymphocytes % 10.6 %; Mean Corpuscular HGB Conc 33.2 g/dL (31.6-35.5); Mean Corpuscular Hemoglobin 27.4 pg (28.0-33.3); Mean Corpuscular Volume 82.7 fL (83.0-100.0); Mean Platelet Volume 8.5 fL (9.4-12.4); Monocytes # 0.6 K/mcL (0.0-1.3); Monocytes % 5.1 %; Neutrophils # 9.6 K/mcL (1.6-8.9); Platelet Count 492 K/mcL (140-400); Red Blood Count 2.77 M/mcL (4.19-5.50); Red Cell Distribution Width 15.4 % (11.5-14.5); Segmented Neutrophils % 79.1 %
[2018-01-06 03:57] LABS: Calcium 8.3 mg/dL (8.6-10.3); Potassium 4.4 mEq/L (3.5-5.1)
[2018-01-06] MEDS: *HR* OxyCODONE Immed Rel 5 MG TABLET PO PRN ×2 (04:24→19:48)
[2018-01-06] MEDS: Cefepime HCl 2,000 MG in Water for inj. (sterile) 20 ML 20 ML IVP SCH ×2 (06:34→16:21)
[2018-01-06] MEDS: *HR* Heparin 5,000 UNIT/ML VIAL SQ SCH ×2 (06:34→16:21)
[2018-01-06] MEDS: amLODIPine 5 MG TABLET PO SCH (08:19)
[2018-01-06] MEDS: Sennosides 8.6 MG TABLET PO SCH ×2 (08:19→19:48)
[2018-01-06] MEDS: *HR* HYDROcodone/Acet 5/325 mg TABLET PO PRN ×3 (08:20→16:16)
--- NOTE | 2018-01-06 12:21 | Internal Med Progress Note ---
Date of Encounter: 01/06/18 Time of Encounter: 12:19 - Assessment and plan (1) Osteomyelitis Current Visit: Yes Status: Acute Assessment and plan: ID consulted, appreciate input. S/P balloon angioplasty 12/28/17. S/P Left Fem- Pop 01/01/18. Continue IV vancomycin and IV cefepime. Podiatry consulted; appreciate input. S/P left heel debridement 01/04/18. SW working on home IV antibiotics. Continue pain control. Plan for discharge home tomorrow after ID makes final antibiotic recommendations, podiatry signs off, and SW sets up home IV antibiotics with home health. Qualifiers: Osteomyelitis type: other chronic Osteomyelitis location: foot Laterality : left Qualified Code(s): M86.672 - Other chronic osteomyelitis, left ankle and foot (2) Hypo-osmolality and hyponatremia Current Visit: Yes Status: Acute Assessment and plan: Stable and asymptomatic. Could be in part to SSRI. Patient now back on diet. Started IVF today for CKD as per below. Recheck BMP in AM. (3) Anemia Current Visit: Yes Status: Acute Assessment and plan: Slightly down, likely due to surgery. Recheck CBC in AM. Transfuse if hemoglobin drops below 7.0 or symptomatic. Qualifiers: Anemia type: due to chronic kidney disease Chronic kidney disease stage: stage 3 (moderate) Qualified Code(s): N18.3 - Chronic kidney disease, stage 3 (moderate); D63.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 (4) CKD (chronic kidney disease) Current Visit: Yes Status: Chronic Assessment and plan: Stage III CKD. Creatinine up again this AM; he states that he has not been drinking much water. Will start IV NS at 75 ml/hr and encourage to maintain PO hydration. Continue to use nephroprotective strategy and renally dose medications. Creatinine still better than last known baseline. Qualifiers: Chronic kidney disease stage: stage 3 (moderate) Qualified Code(s): N18.3 - Chronic kidney disease, stage 3 (moderate) (5) Hypertension Current Visit: Yes Status: Chronic Assessment and plan: Normotensive. Hold home losartan due to hyponatremia. Continue home medications with increased amlodipine dose. Continue labetalol PRN. Monitor vitals closely. Qualifiers: Hypertension type: essential hypertension Qualified Code(s): I10 - Essential (primary) hypertension (6) PAD (peripheral artery disease) Current Visit: Yes Status: Chronic Assessment and plan: Vascular Surgery consulted; appreciate input. S/P balloon angioplasty of left external iliac artery on 12/28/17. S/P Left Fem-Pop on 01/01/18. (7) Sepsis Current Visit: Yes Status: Resolved Assessment and plan: Resolved. Was likely secondary to osteomyeltitis of left foot. Continue IV vancomycin and IV cefepime as per above. Qualifiers: Sepsis type: sepsis due to unspecified organism Qualified Code(s): A41.9 - Sepsis, unspecified organism (8) DVT prophylaxis Current Visit: Yes Status: Acute Assessment and plan: Continue SQ heparin. - Time Spent With Patient Total time spent is greater than 50% in coordination of care (as documented) at patient's floor/unit and/or counseling patient: less than 15 minutes - Subjective Interval history: Patient had no acute events overnight. He is POD #5 s/p left fem-pop by vascular surgery. He is POD #2 s/p left heel debridement by podiatry. He states LLE pain is now well-controlled. He remains in good spirits today. He denies chest pain, SOB, fever, chills, nausea, or vomiting. He has no other complaints at this time. - Constitutional Vitals: Temp Pulse Resp BP Pulse Ox 98.5 F 93 18 128/69 99 01/06/18 11:15 01/06/18 11:15 01/06/18 11:15 01/06/18 11:15 01/06/18 11:15 General appearance: Present: cooperative, A&O X 3, pleasant, no acute distress, answers questions appropriately - Respiratory Respiratory exam: Present: CTAB. Absent: accessory muscle use, rales, rhonchi, wheezes Additional comments: Normal WOB - Cardiovascular Cardiovascular exam: Present: RRR, +S1, +S2. Absent: diastolic murmur, gallop, rubs, systolic murmur Additional comments: No BLE edema, left foot in bandage - GI/Abdominal GI/Abdominal exam: Present: normal bowel sounds, soft. Absent: distended, hepatomegaly, mass, splenomegaly, tenderness - Psychiatric Psychiatric exam: Present: normal affect, normal mood. Absent: agitated, anxious, depressed - Skin Skin exam: Present: dry, intact, warm. Absent: cyanosis, rash Internal Medicine: Result - Labs CBC & Chem 7: 01/06/18 03:30 01/06/18 03:00 Labs: Short CBC 01/06/18 Range/Units 03:30 WBC 12.2 H (4.3-11.1) K/mcL Hgb 7.6 L (12.9-16.9) g/dL Hct 22.9 L (37.5-50.1) % Plt Count 492 H (140-400) K/mcL Neutrophils # 9.6 H (1.6-8.9) K/mcL BMP 01/06/18 03:00 Sodium 131 L Potassium 4.4 Chloride 100 Carbon Dioxide 27 BUN 26 H Creatinine 1.52 H Glucose 112 H Calcium 8.3 L - ABG Interpretation ABG results: PT/INR, D-dimer PT 14.5 Seconds (9.4-12.1) H 12/26/17 01:07 Consult Discharge Plan - Plan Referrals: Cosme Martínez MD [Non-Partnered Physician] - 01/15/18 8:30 am (Please arrive @ 0815.) Slim Delacruz MD [Partnered Physician] - 01/23/18 11:45 am
[2018-01-06] MEDS: 0.9 % Sodium Chloride 1,000 ML IVC SCH (12:29)
[2018-01-07] MEDS: *HR* FentaNYL (PF) 100 MCG/2 ML VIAL IVP PRN (02:02)
[2018-01-07] MEDS: *HR* OxyCODONE Immed Rel 5 MG TABLET PO PRN ×3 (04:27→18:19)
[2018-01-07 05:13] LABS: Basophils # 0.1 K/mcL (0.0-0.2); Basophils % 0.5 %; Eosinophils # 0.2 K/mcL (0.0-0.6); Eosinophils % 1.7 %; Hemoglobin 8.1 g/dL (12.9-16.9); Immature Granulocytes % 2.2 % (0-4); Lymphocytes # 1.3 K/mcL (0.6-4.6); Lymphocytes % 10.1 %; Mean Corpuscular HGB Conc 32.4 g/dL (31.6-35.5); Mean Corpuscular Hemoglobin 26.1 pg (28.0-33.3); Mean Corpuscular Volume 80.6 fL (83.0-100.0); Mean Platelet Volume 8.4 fL (9.4-12.4); Monocytes # 0.7 K/mcL (0.0-1.3); Monocytes % 5.6 %; Neutrophils # 10.1 K/mcL (1.6-8.9); Platelet Count 422 K/mcL (140-400); Red Cell Distribution Width 15.4 % (11.5-14.5); Segmented Neutrophils % 79.9 %
[2018-01-07 05:42] LABS: Calcium 8.7 mg/dL (8.6-10.3); Potassium 4.3 mEq/L (3.5-5.1)
[2018-01-07] MEDS: Cefepime HCl 2,000 MG in Water for inj. (sterile) 20 ML 20 ML IVP SCH ×2 (06:13→17:46)
[2018-01-07] MEDS: *HR* Heparin 5,000 UNIT/ML VIAL SQ SCH ×2 (06:14→17:47)
[2018-01-07] MEDS: amLODIPine 5 MG TABLET PO SCH (09:06)
[2018-01-07] MEDS: Sennosides 8.6 MG TABLET PO SCH ×2 (09:06→20:44)
[2018-01-07] MEDS: *HR* HYDROcodone/Acet 5/325 mg TABLET PO PRN ×4 (09:08→23:36)
--- NOTE | 2018-01-07 10:40 | Infectious Disease Progress No ---
Date of Encounter: 01/07/18 Time of Encounter: 10:38 - Assessment and Plan (1) Sepsis Current Visit: Yes Status: Resolved The patient had three SIRS criteria on admission. Likely secondary to left heel osteomyelitis. Resolved. Afebrile. Tachycardia has resolved. WBC a little elevated today, likely reactive from recent surgical procedure. Blood cultures drawn 12/25/17 are negative x 2 sets. Qualifiers: Sepsis type: sepsis due to unspecified organism Qualified Code(s): A41.9 - Sepsis, unspecified organism (2) Osteomyelitis Current Visit: Yes Status: Acute Location: Left calcaneus. Causative organism: Unclear. X-ray of the left foot shows chronic erosion over the posterior calcaneus. Bone scan showed findings consistent with OM of the calcaneus. Podiatry consulted and following. Status post partial calcanectomy, rearrangement of soft tissue for closure of wound left heel, and application of PRP 01/04/[address] Larsen. Operative note reviewed. Calcaneus was soft. Cultures obtained and sent to pathology for evaluation. Cultures are negative. Pathology is pending. ESR 94, CRP 254. Wound care and activity restrictions per the podiatry team. Continue Vancomycin IV. Pharmacy to dose. Goal trough ~15. Continue Cefepime 2 grams IV Q12H. The patient has a documented "allergy" to Keflex, but reports adverse effects from medication and not true allergy. Will avoid fluoroquinolones due to the patient's history of Achilles tendon rupture with recent repair. Has tolerated Cefepime without a problem. Duration of treatment depends on the clinical picture, but likely 6 weeks. Unfortunately, the patient received a prolonged course of IV antibiotics prior to wound culture collection and, therefore, the cultures are sterile, which makes antibiotic selection difficult. The patient does have a history of CKD III, which puts him at increased risk of antibiotic-related EVANS. Will plan on continuing IV Vancomycin and Cefepime on discharge. Monitor renal function and for drug toxicity and dose-adjust antibiotics. Will need weekly CBC, BUN/Cr, ESR, CRP, and Vanc trough. Will need weekly IV care per protocol. Follow up with ID 01/30/18 at 0840. Qualifiers: Osteomyelitis type: other chronic Osteomyelitis location: foot Laterality : left Qualified Code(s): M86.672 - Other chronic osteomyelitis, left ankle and foot (3) Left hip pain Current Visit: Yes Status: Resolved Etiology unclear. X-ray negative. CT scan negative for septic arthritis. Improved. Pain management per the primary team. (4) Ulcer of left heel Current Visit: Yes Status: Acute Chronic. Podiatry consulted and following. Wound care per the podiatry team. 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 Serum creatinine slightly elevated this morning at 1.44, but improved from yesterday. Not clear what the patient's baseline is. Continue to trend and monitor closely. Strict I's and O's. Dose-adjust antibiotics. Avoid nephrotoxins as able. Qualifiers: Chronic kidney disease stage: stage 3 (moderate) Qualified Code(s): N18.3 - Chronic kidney disease, stage 3 (moderate) (6) PAD (peripheral artery disease) Current Visit: Yes Status: Chronic ABIs consistent with moderate disease in the RLE and severe disease in the LLE. Vascular surgery consulted. Status post angiogram 12/28/17 with balloon angioplasty and stent placement. Status post left iliofemoral enarterectomy with anterior saphenous vein patch angioplasty and left femoral-AK popliteal bypass with reversed GSV. (7) Status post left foot surgery Current Visit: Yes Status: Acute Status post left foot reconstruction and Achilles tendon repair in June at [facility]. - Subjective Interval history: Patient seen and examined. Weekend notes reviewed. No acute events noted overnight. Status post angiogram with balloon angioplasty and stent to the left external iliac artery 12/28/[address] Delacruz. Status post left iliofemoral endarterectomy with anterior saphenous vein patch angioplasty and left femoral- AK popliteal bypass with reversed GSV 01/01/[address] Delacruz. Status post partial left calcanectomy, rearrangement of soft tissue for closure of wound left heel, and application of PRP 01/04/[address] Sagastume. Denies fevers or chills or rigors. Denies chest pain, shortness of breath, or cough. Denies nausea, vomiting, diarrhea, or constipation. Denies abdominal pain or urinary complaints. He denies any oral thrush or new skin lesions. Reports minimal pain in the LLE. States appetite is good. Infect Dis PN-Objective Data - Labs CBC & Chem 7: 01/07/18 04:20 01/07/18 04:20 Labs: Laboratory Results - last 24 hr 01/07/18 01/07/18 01/07/18 00:00 04:20 04:20 WBC 12.6 H RBC 3.10 L Hgb 8.1 L Hct 25.0 L MCV 80.6 L MCH 26.1 L MCHC 32.4 RDW 15.4 H Plt Count 422 H MPV 8.4 L Immature Gran % 2.2 Seg Neutrophils % 79.9 Lymphocytes % 10.1 Monocytes % 5.6 Eosinophils % 1.7 Basophils % 0.5 Neutrophils # 10.1 H Lymphocytes # 1.3 Monocytes # 0.7 Eosinophils # 0.2 Basophils # 0.1 Sodium 130 L Potassium 4.3 Chloride 99 Carbon Dioxide 25 BUN 26 H Creatinine 1.44 H Est GFR ( Amer) 57 L Est GFR (Non-Af Amer) 47 L BUN/Creatinine Ratio 18 Glucose 105 Calculated Osmolality 275 L Calcium 8.7 Vancomycin Trough 20 H Cultures: Cultures 01/04/18 16:00 Wound Culture - Final Left Foot No growth. Exam - Constitutional Vitals: Temp Pulse Resp BP Pulse Ox 98.0 F 83 18 127/63 96 01/07/18 07:11 01/07/18 07:11 01/07/18 07:11 01/07/18 07:11 01/07/18 07:11 General appearance: average body habitus, cooperative, no acute distress - Head Head exam: Present: atraumatic, normal inspection, normocephalic - Eye Eye exam: Present: EOMI, normal appearance, PERRL Pupils: Present: normal accommodation - ENT ENT exam: Present: mucous membranes moist - Neck Neck exam: Present: normal inspection - Respiratory Respiratory exam: Present: CTAB. Absent: rales, respiratory distress, rhonchi, wheezes - Cardiovascular Cardiovascular exam: Present: RRR, +S1, +S2 - GI/Abdominal GI/Abdominal exam: Present: normal bowel sounds, soft. Absent: distended, tenderness - Extremities Exam Extremities exam: Present: pedal edema (1+ LLE). Absent: joint swelling, tenderness Additional comments: LEft thigh surgical site PRACHI without redness, warmth, or drainage. Wound edges well-approximated. Left foot post-op dressing/splint C/D/I. - Neurological Exam Neurological exam: Present: alert, oriented X3, no focal deficits - Psychiatric Psychiatric exam: Present: normal affect, normal mood - Skin Skin exam: Present: dry, intact, normal color, warm - VTE Documentation of Mechanical Device: Intermittent pneumatic compression device Consult Discharge Plan - Plan Additional Instructions: Follow up with PCP in 2-3 days after discharge. Recheck BMP and CBC at that time. Keep follow up with podiatry and vascular surgery as directed. Referrals: Tristen Sagastume DPM [Partnered Physician] - 01/30/18 9:30 am Yola Duckworth CNP [Advanced Practice Nurse] - 01/30/18 8:40 am Cosme Martínez MD [Non-Partnered Physician] - 01/15/18 8:30 am (Please arrive @ 0815.) Slim Delacruz MD [Partnered Physician] - 01/23/18 11:45 am Prescriptions: Cefepime HCl [Maxipime] 2,000 mg IVPB Q12HR 42 Days #84 vial Clopidogrel [Plavix] 75 mg PO DAILY 14 Days #14 tablet Lidocaine Patch [Lidoderm 5% patch] 1 each TP DAILY 14 Days #14 adh..patch Vancomycin [Vancocin] 1,000 mg IV Q24H 42 Days #42 vial - Attending Attestation I examined this patient and my medical decision-making was reviewed with the Resident Physician. I agree with the documented findings, disposition and treatment plan as described except to the extent set forth below.
[2018-01-07] MEDS: 0.9 % Sodium Chloride 1,000 ML IVC SCH (11:03)
[2018-01-07] MEDS ORDERED: 0.9 % Sodium Chloride 1,000 ML IVC ONE (14:02)
[2018-01-07] MEDS ORDERED: levoFLOXacin 750 MG TABLET PO SCH (15:15)
--- NOTE | 2018-01-07 16:42 | Discharge Summary ---
- NOTES TO OUTPATIENT PROVIDER Notes to Outpatient Provider: Follow up with PCP in 2-3 days after discharge. Recheck BMP and CBC at that time. Keep follow up with podiatry and vascular surgery as directed. Orders not resulted at time of discharge: Pending orders 01/04/18 16:00 Culture,Anaerobic [RM] Routine 01/04/18 16:47 Surgical Pathology [PTH] Routine Date of Encounter: 01/07/18 Time of Encounter: 16:40 - Discharge Diagnosis (1) Osteomyelitis Priority: Primary Status: Acute Qualifiers: Osteomyelitis type: other chronic Osteomyelitis location: foot Laterality : left Qualified Code(s): M86.672 - Other chronic osteomyelitis, left ankle and foot (2) Hypo-osmolality and hyponatremia Priority: Secondary Status: Acute (3) Anemia Priority: Secondary Status: Acute Qualifiers: Anemia type: due to chronic kidney disease Chronic kidney disease stage: stage 3 (moderate) Qualified Code(s): N18.3 - Chronic kidney disease, stage 3 (moderate); D63.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 (4) CKD (chronic kidney disease) Priority: Secondary Status: Chronic Qualifiers: Chronic kidney disease stage: stage 3 (moderate) Qualified Code(s): N18.3 - Chronic kidney disease, stage 3 (moderate) (5) Hypertension Priority: Secondary Status: Chronic Qualifiers: Hypertension type: essential hypertension Qualified Code(s): I10 - Essential (primary) hypertension (6) PAD (peripheral artery disease) Priority: Secondary Status: Chronic (7) Sepsis Priority: Secondary Status: Resolved Qualifiers: Sepsis type: sepsis due to unspecified organism Qualified Code(s): A41.9 - Sepsis, unspecified organism (8) DVT prophylaxis Priority: Secondary Status: Acute Hospital course: Mr. Bajwa is a 82 year old male admitted for sepsis secondary to LLE osteomyelitis. Patient was admitted to step down unit with telemetry. Vascular surgery and podiatry were consulted. He was started on IV antibiotics and IVF. He had balloon angioplasty by vascular surgery on 12/28/17. He had Left Fem-Pop by vascular surgery on 01/01/18. He had left heel debridement by podiatry on 01/04/18. Infectious disease determined that he needs 6 more weeks of IV vancomycin 1000 mg Q24H and IV cefepime 2000 mg Q12H. KARL is setting this up with home health for home IV antibiotics. He will follow up with new PCP in 2-3 days after discharge. BMP and CBC can be rechecked at that time. He will follow up with vascular surgery and podiatry as directed. Patient has met maximum benefit of this hospitalization and will be discharged home with home health in stable condition once KARL has set up home IV antibiotics. Discharge discussed with: patient, family, nurse, social work, mainframe consultant ( Infectious Disease), other (Pharmacist) - Time Spent with Patient Total time spent providing and/or coordinating discharge services: Greater than 30 minutes - Discharge Medications Prescriptions: Cefepime HCl [Maxipime] 2,000 mg IVPB Q12HR 42 Days #84 vial Clopidogrel [Plavix] 75 mg PO DAILY 14 Days #14 tablet Lidocaine Patch [Lidoderm 5% patch] 1 each TP DAILY 14 Days #14 adh..patch Vancomycin [Vancocin] 1,000 mg IV Q24H 42 Days #42 vial Home Medications: Donepezil [Aricept] 5 mg PO DAILY 12/25/17 [History] InFLIXimab [Remicade] 100 mg IV AD 12/25/17 [History] Losartan [Cozaar] 25 mg PO DAILY 12/25/17 [History] [place]-3/Dha/Epa/Fish Oil [Fish Oil 1,000 mg Softgel] 1 cap PO DAILY 12/25/17 [ History] Paricalcitol [Zemplar] 1 mcg PO Q72H 12/25/17 [History] Sertraline [Zoloft] 50 mg PO DAILY 12/25/17 [History] Tramadol HCl [Ultram] 50 mg PO QID PRN 12/25/17 [History] amLODIPine [Norvasc] 5 mg PO DAILY 12/25/17 [History] Cefepime HCl [Maxipime] 2,000 mg IVPB Q12HR 42 Days #84 vial 01/07/18 [Rx] Clopidogrel [Plavix] 75 mg PO DAILY 14 Days #14 tablet 01/07/18 [Rx] Lidocaine Patch [Lidoderm 5% patch] 1 each TP DAILY 14 Days #14 adh..patch 01/07 [Rx] Vancomycin [Vancocin] 1,000 mg IV Q24H 42 Days #42 vial 01/07/18 [Rx] Allergies/Adverse Reactions: 3 Allergy/AdvReac Type Severity Reaction Status Date / Time cephalexin [From Keflex] Allergy Hives Verified 12/25/17 14:32 Penicillins Allergy Hives Verified 12/25/17 14:32 Date of admission: 12/25/17 17:19 Primary care physician: PCP NONE Consults: Podiatry Vascular Surgery Infectious Disease 01/03/18 10:45 Consult to Patient Relations Coordinator [CONS] Stat Reason for SW Consult: ECF for weakness, LT-IV ATB, wound vac care 01/03/18 16:40 Consult to Patient Relations Coordinator [CONS] Routine Reason for SW Consult: Set up home IV antibiotics (home health vs infusion center) per podiatry and infectious disease recommendations. 01/04/18 17:03 Consult to Physical Therapy [CONS] Routine Comment: Evaluate, develop and implement POC Reason for Consult: NWB left foot, eval, possible ECF Does patient have active BEDREST order?: No Is patient medically & hemodynamically stable?: Yes Patient assessed for mobility or mobilized this visit?: No Discharging clinician: Rusty Kellogg Anticipated date of discharge: 01/07/18 - Constitutional Vitals: Temp Pulse Resp BP Pulse Ox 98.2 F 83 18 128/63 95 01/07/18 15:49 01/07/18 15:49 01/07/18 15:49 01/07/18 15:49 01/07/18 15:49 General appearance: Present: cooperative, A&O X 3, pleasant, no acute distress, answers questions appropriately - Respiratory Respiratory exam: Present: CTAB. Absent: accessory muscle use, rales, rhonchi, wheezes Additional comments: Normal WOB - Cardiovascular Cardiovascular exam: Present: RRR, +S1, +S2. Absent: diastolic murmur, gallop, rubs, systolic murmur Additional comments: No BLE edema, left foot in bandage - GI/Abdominal GI/Abdominal exam: Present: normal bowel sounds, soft. Absent: distended, hepatomegaly, mass, splenomegaly, tenderness - Psychiatric Psychiatric exam: Present: normal affect, normal mood. Absent: agitated, anxious, depressed - Skin Skin exam: Present: dry, intact, warm. Absent: cyanosis, rash - Patient Status Disposition: Home Health Service Condition: Good Overall status at discharge: patient is progressing back to baseline - Discharge Instructions Follow Up With: Yola Duckworth CNP [Advanced Practice Nurse] - 01/30/18 8:40 am Cosme Martínez MD [Non-Partnered Physician] - 01/15/18 8:30 am (Please arrive @ 0815.) Slim Delacruz MD [Partnered Physician] - 01/23/18 11:45 am Additional Instructions: Follow up with PCP in 2-3 days after discharge. Recheck BMP and CBC at that time. Keep follow up with podiatry and vascular surgery as directed. - Diet and Activity Activity: as per physical therapy Diet: low fat, low cholesterol, low salt diet, other (Cardiac Diet, Renal Diet)
--- NOTE | 2018-01-07 16:54 | Physician Discharge Referral ---
Home Health/Hosp Referral Info Transfer to: Home Health Provider in Charge Post Discharge: PCP - Diagnosis (1) Osteomyelitis Priority: Primary Status: Acute (2) Hypo-osmolality and hyponatremia Priority: Secondary Status: Acute (3) Anemia Priority: Secondary Status: Acute (4) CKD (chronic kidney disease) Priority: Secondary Status: Chronic (5) Hypertension Priority: Secondary Status: Chronic (6) PAD (peripheral artery disease) Priority: Secondary Status: Chronic (7) Sepsis Priority: Secondary Status: Resolved (8) DVT prophylaxis Priority: Secondary Status: Acute - Respiratory Orders None Smoking Cessation: Smoking cessation has been advised. For more information, call the [employer] Quit Line at 2-143-SWAQ-NOW. - Dressing/Wound Care Site: LLE wound care dressing per podiatry's orders. - Diet/Nutrition Diet/Nutrition Orders: No Added Salt (KERMIT), Renal, Cardiac - Activity Activity: List: Per physical therapy - Services Needed Following services are medically necessary services: Nursing, Home Health Aide, Physical Therapy, Occupational Therapy, Med Social Work, Home Infusion Other Treatments: Vancomycin 1000 mg IV Q24H and Cefepime 2000 mg Q12H for 6 weeks. - Transfer Medications Prescriptions: Cefepime HCl [Maxipime] 2,000 mg IVPB Q12HR 42 Days #84 vial Clopidogrel [Plavix] 75 mg PO DAILY 14 Days #14 tablet Lidocaine Patch [Lidoderm 5% patch] 1 each TP DAILY 14 Days #14 adh..patch Vancomycin [Vancocin] 1,000 mg IV Q24H 42 Days #42 vial Home Medications: Donepezil [Aricept] 5 mg PO DAILY 12/25/17 [History] InFLIXimab [Remicade] 100 mg IV AD 12/25/17 [History] Losartan [Cozaar] 25 mg PO DAILY 12/25/17 [History] [place]-3/Dha/Epa/Fish Oil [Fish Oil 1,000 mg Softgel] 1 cap PO DAILY 12/25/17 [ History] Paricalcitol [Zemplar] 1 mcg PO Q72H 12/25/17 [History] Sertraline [Zoloft] 50 mg PO DAILY 12/25/17 [History] Tramadol HCl [Ultram] 50 mg PO QID PRN 12/25/17 [History] amLODIPine [Norvasc] 5 mg PO DAILY 05/22/18 [History] Cefepime HCl [Maxipime] 2,000 mg IVPB Q12HR 42 Days #84 vial 01/07/18 [Rx] Clopidogrel [Plavix] 75 mg PO DAILY 14 Days #14 tablet 01/07/18 [Rx] Lidocaine Patch [Lidoderm 5% patch] 1 each TP DAILY 14 Days #14 adh..patch 01/07 [Rx] Vancomycin [Vancocin] 1,000 mg IV Q24H 42 Days #42 vial 01/07/18 [Rx] Allergies/Adverse Reactions: 3 Allergy/AdvReac Type Severity Reaction Status Date / Time cephalexin [From Keflex] Allergy Hives Verified 12/25/17 14:32 Penicillins Allergy Hives Verified 12/25/17 14:32 Certification: Further, I certify that my clinical findings support that this patient is homebound (i.e. absences from home require considerable and taxing effort and are for medical reasons or islam services or infrequently or short duration when for other reasons) because: LLE osteomyelitis, anemia, CKD, HTN, and PAD. Homebound Reason: Patient requires assistance of a person or device to safely leave home, Post-surgery restriction and or conditions limit ability to leave home, Leaving home requires considerable and taxing effort due to condition Attestation: My signature below is to certify that this patient is under my care and that I, or nurse practitioner, or a physician's assistant maintenance manager working with me, has a face-to -face encounter with this patient.
--- NOTE | 2018-01-07 18:01 | Podiatry Progress Note ---
Date of Encounter: 01/07/18 Time of Encounter: 05:30 - Assessment and Plan (1) Osteomyelitis Current Visit: Yes Status: Acute 3 days s/p left partial calcanectomy and flap closure of wound posterior left heel discussed surgical procedure and course of recovery. no signs of soft tissue infection currently. remain non-weight bearing in the posterior splint using assistive device. bandage change in office upon discharge, none at home. elevation. antibiotics per infectious disease. f/u with me in office. Qualifiers: Osteomyelitis type: other chronic Osteomyelitis location: foot Laterality : left Qualified Code(s): M86.672 - Other chronic osteomyelitis, left ankle and foot Subjective Interval history: 3 days s/p partial calcanectomy and flap closure of posterior left heel wound. denies feeling like he experienced fever, chills, nausea, vomiting, shortness of breath, chest pain. says his leg looks a lot better. Objective - Vital Signs Vital Signs: Vital Signs Temp Pulse Resp BP Pulse Ox 01/07/18 15:49 98.2 F 83 18 128/63 95 01/07/18 11:11 98.3 F 77 18 126/58 97 01/07/18 07:11 98.0 F 83 18 127/63 96 01/07/18 04:05 85 01/07/18 03:52 98.1 F 75 18 136/62 97 01/07/18 00:14 98.4 F 81 18 128/66 95 01/06/18 23:34 85 01/06/18 19:48 89 01/06/18 19:17 98.5 F 95 18 137/74 98 Intake and Output 01/07/18 01/07/18 01/07/18 07:59 15:59 23:59 Intake Total 1000 / 1000 120 / 120 Balance 1000 / 1000 120 / 120 Intake: IV Fluids 1000 / 1000 0.9 % Sodium Chloride 1,000 ML 1000 / 1000 @ 75 mls/hr IVC .[id number] [facility] Rx #:[id number] Oral 120 / 120 Other: Meal Breakfast Percent of Meal Consumed 80% Weight 83.6 kg Patient Weight 01/07/18 23:59 Weight 83.6 kg - Exam Exam: well developed and nourished male in no acute distress left foot/ankle/leg are warm to touch. sutures intact posteriorly. no necrosis. skin edges coapting. no erythema. no drainage expressed. no fluctuance. no evidence of hematoma. diminished protective sensation. - Lab Result Diagrams: 01/07/18 04:20 01/07/18 04:20 Labs: Abnormal lab results WBC 12.6 K/mcL (4.3-11.1) H 01/07/18 04:20 RBC 3.10 M/mcL (4.19-5.50) L 01/07/18 04:20 Hgb 8.1 g/dL (12.9-16.9) L 01/07/18 04:20 Hct 25.0 % (37.5-50.1) L 01/07/18 04:20 MCV 80.6 fL (83.0-100.0) L 01/07/18 04:20 MCH 26.1 pg (28.0-33.3) L 01/07/18 04:20 RDW 15.4 % (11.5-14.5) H 01/07/18 04:20 Plt Count 422 K/mcL (140-400) H 01/07/18 04:20 MPV 8.4 fL (9.4-12.4) L 01/07/18 04:20 Neutrophils # 10.1 K/mcL (1.6-8.9) H 01/07/18 04:20 Nucleated RBCs/100 WBC 0.2 /100 WBC (0) H 01/02/18 05:10 Immature Plt Fraction 0.8 % (1.1-6.1) L 01/06/18 03:30 ESR 94 mm/hr (0-10) H 12/25/17 13:57 PT 14.5 Seconds (9.4-12.1) H 12/26/17 01:07 Sodium 130 mEq/L (136-145) L 01/07/18 04:20 BUN 26 mg/dL (8-23) H 01/07/18 04:20 Creatinine 1.44 mg/dL (0.70-1.30) H 01/07/18 04:20 Est GFR ( Amer) 57 (> 60) L 01/07/18 04:20 Est GFR (Non-Af Amer) 47 (> 60) L 01/07/18 04:20 POC Glucose 114 mg/dL (70-99) H 01/04/18 11:48 Calculated Osmolality 275 (280-300) L 01/07/18 04:20 AST 48 Units/L (13-39) H 12/26/17 01:07 C-Reactive Protein 254 mg/L (Less than 10) H 12/25/17 13:57 Serum Total Protein 6.3 g/dL (6.4-8.9) L 12/26/17 01:07 Albumin 3.0 g/dL (3.5-5.7) L 12/26/17 01:07 Albumin/Globulin Ratio 0.9 (1.1-2.2) L 12/26/17 01:07 HDL Cholesterol 36 mg/dL (40-59) L 12/26/17 01:07 Urine Clarity Cloudy (Clear) A 12/25/17 14:10 Urine Protein 30 mg/dL (Neg-Trace) H 12/25/17 14:10 Urine Blood Small (Negative) H 12/25/17 14:10 Ur Leukocyte Esterase Small (Negative) H 12/25/17 14:10 Urine Microscopic RBC 5-15 per hpf (0-3) H 12/25/17 14:10 Urine Microscopic WBC 15-30 per hpf (0-3) H 12/25/17 14:10 Ur Squamous Epith Cells Many per lpf (None-Few) H 12/25/17 14:10 Urine Yeast Few per hpf (None Seen) H 12/25/17 14:10 Ur Culture Indicated? NO. (NO) A 12/25/17 14:10 Vancomycin Trough 20 mcg/mL (5-10) H 01/07/18 00:00 Microbiology, Last 48 Hours 01/04/18 16:00 Wound Culture - Final Left Foot No growth. - VTE Documentation of Mechanical Device: Intermittent pneumatic compression device Consult Discharge Plan - Plan Additional Instructions: Follow up with PCP in 2-3 days after discharge. Recheck BMP and CBC at that time. Keep follow up with podiatry and vascular surgery as directed. Referrals: Tristen Sagastume DPM [Partnered Physician] - 01/30/18 9:30 am Yola Duckworth OLDER [employer]ULT [employer] SPECIALIST [Advanced Practice Nurse] - 01/30/18 8:40 am Cosme Martínez MD [Non-Partnered Physician] - 01/15/18 8:30 am (Please arrive @ 0815.) Slim Delacruz MD [Partnered Physician] - 01/23/18 11:45 am Prescriptions: Cefepime HCl [Maxipime] 2,000 mg IVPB Q12HR 42 Days #84 vial Clopidogrel [Plavix] 75 mg PO DAILY 14 Days #14 tablet Lidocaine Patch [Lidoderm 5% patch] 1 each TP DAILY 14 Days #14 adh..patch Vancomycin [Vancocin] 1,000 mg IV Q24H 42 Days #42 vial
[2018-01-08] MEDS: 0.9 % Sodium Chloride 1,000 ML IVC SCH (04:11)
[2018-01-08 04:59] LABS: Basophils # 0.1 K/mcL (0.0-0.2); Basophils % 0.5 %; Eosinophils # 0.2 K/mcL (0.0-0.6); Eosinophils % 1.8 %; Hematocrit 24.5 % (37.5-50.1); Hemoglobin 7.8 g/dL (12.9-16.9); Immature Granulocytes % 2.3 % (0-4); Lymphocytes # 0.9 K/mcL (0.6-4.6); Lymphocytes % 8.3 %; Mean Corpuscular HGB Conc 31.8 g/dL (31.6-35.5); Mean Corpuscular Hemoglobin 26.1 pg (28.0-33.3); Mean Corpuscular Volume 81.9 fL (83.0-100.0); Mean Platelet Volume 8.3 fL (9.4-12.4); Monocytes # 0.6 K/mcL (0.0-1.3); Monocytes % 5.5 %; Neutrophils # 8.9 K/mcL (1.6-8.9); Platelet Count 349 K/mcL (140-400); Red Blood Count 2.99 M/mcL (4.19-5.50); Red Cell Distribution Width 15.4 % (11.5-14.5); Segmented Neutrophils % 81.6 %
[2018-01-08 05:19] LABS: Calcium 8.5 mg/dL (8.6-10.3); Potassium 4.3 mEq/L (3.5-5.1)
[2018-01-08] MEDS: Cefepime HCl 2,000 MG in Water for inj. (sterile) 20 ML 20 ML IVP SCH ×2 (05:50→18:11)
[2018-01-08] MEDS: *HR* Heparin 5,000 UNIT/ML VIAL SQ SCH (05:50)
[2018-01-08] MEDS: amLODIPine 5 MG TABLET PO SCH (08:46)
[2018-01-08] MEDS: Sennosides 8.6 MG TABLET PO SCH (08:46)
[2018-01-08] MEDS: *HR* HYDROcodone/Acet 5/325 mg TABLET PO PRN (08:49)
--- NOTE | 2018-01-08 08:57 | Infectious Disease Progress No ---
Date of Encounter: 01/08/18 Time of Encounter: 08:54 - Assessment and Plan (1) Sepsis Status: Resolved The patient had three SIRS criteria on admission. Likely secondary to left heel osteomyelitis. Resolved. Afebrile. Tachycardia has resolved. WBC normal this morning. Blood cultures drawn 12/25/17 are negative x 2 sets. Qualifiers: Sepsis type: sepsis due to unspecified organism Qualified Code(s): A41.9 - Sepsis, unspecified organism (2) Osteomyelitis Status: Acute Location: Left calcaneus. Causative organism: Unclear. X-ray of the left foot shows chronic erosion over the posterior calcaneus. Bone scan showed findings consistent with OM of the calcaneus. Podiatry consulted and following. Status post partial calcanectomy, rearrangement of soft tissue for closure of wound left heel, and application of PRP 01/04/[address] Larsen. Operative note reviewed. Calcaneus was soft. Cultures obtained and sent to pathology for evaluation. Cultures are negative. Pathology is pending. ESR 94, CRP 254. Wound care and activity restrictions per the podiatry team. Continue Vancomycin IV. Pharmacy to dose. Goal trough ~15. Continue Cefepime 2 grams IV Q12H. The patient has a documented "allergy" to Keflex, but reports adverse effects from medication and not true allergy. Will avoid fluoroquinolones due to the patient's history of Achilles tendon rupture with recent repair. Has tolerated Cefepime without a problem. Duration of treatment depends on the clinical picture, but likely 6 weeks. Unfortunately, the patient received a prolonged course of IV antibiotics prior to wound culture collection and, therefore, the cultures are sterile, which makes antibiotic selection difficult. The patient does have a history of CKD III, which puts him at increased risk of antibiotic-related EVANS. Will plan on continuing IV Vancomycin and Cefepime on discharge. Monitor renal function and for drug toxicity and dose-adjust antibiotics. Will ask the VAT to switch out the patient's EPIV for PICC line prior to discharge. Will need weekly CBC, BUN/Cr, ESR, CRP, and Vanc trough. Will monitor closely and consider increasing frequency of lab monitoring if needed. Will need weekly IV care per protocol. Follow up with ID 01/30/18 at 0840. Qualifiers: Osteomyelitis type: other chronic Osteomyelitis location: foot Laterality : left Qualified Code(s): M86.672 - Other chronic osteomyelitis, left ankle and foot (3) Left hip pain Status: Resolved Etiology unclear. X-ray negative. CT scan negative for septic arthritis. Improved. Pain management per the primary team. (4) Ulcer of left heel Status: Acute Chronic. Podiatry consulted and following. Wound care per the podiatry team. Qualifiers: Non-pressure ulcer stage: unspecified non-pressure ulcer stage Qualified Code(s): L97.429 - Non-pressure chronic ulcer of left heel and midfoot with unspecified severity (5) CKD (chronic kidney disease) Status: Chronic Known CKD stage III. Serum creatinine slightly elevated, but stable. Not clear what the patient's baseline is. Continue to trend and monitor closely. Strict I's and O's. Dose-adjust antibiotics. Avoid nephrotoxins as able. Qualifiers: Chronic kidney disease stage: stage 3 (moderate) Qualified Code(s): N18.3 - Chronic kidney disease, stage 3 (moderate) (6) PAD (peripheral artery disease) Status: Chronic ABIs consistent with moderate disease in the RLE and severe disease in the LLE. Vascular surgery consulted. Status post angiogram 12/28/17 with balloon angioplasty and stent placement. Status post left iliofemoral enarterectomy with anterior saphenous vein patch angioplasty and left femoral-AK popliteal bypass with reversed GSV. (7) Status post left foot surgery Status: Acute Status post left foot reconstruction and Achilles tendon repair in June at [facility]. - Subjective Interval history: Patient seen and examined. No acute events noted overnight. Status post angiogram with balloon angioplasty and stent to the left external iliac artery by Dr. Delacruz. Status post left iliofemoral endarterectomy with anterior saphenous vein patch angioplasty and left femoral-AK popliteal bypass with reversed GSV 01/01/[address] Delacruz. Status post partial left calcanectomy, rearrangement of soft tissue for closure of wound left heel, and application of PRP 01/04/[address] Sagastume. Denies fevers or chills or rigors. Denies chest pain, shortness of breath, or cough. Denies nausea, vomiting, diarrhea, or constipation. Denies abdominal pain or urinary complaints. He denies any oral thrush or new skin lesions. Reports minimal pain in the LLE. States appetite is good. Is awaiting setup for HH/IV antibiotics at home and will be discharging later today. Infect Dis PN-Objective Data - Labs CBC & Chem 7: 01/08/18 04:45 01/08/18 04:45 Labs: Laboratory Results - last 24 hr 01/08/18 01/08/18 04:45 04:45 WBC 10.9 RBC 2.99 L Hgb 7.8 L Hct 24.5 L MCV 81.9 L MCH 26.1 L MCHC 31.8 RDW 15.4 H Plt Count 349 MPV 8.3 L Immature Gran % 2.3 Seg Neutrophils % 81.6 Lymphocytes % 8.3 Monocytes % 5.5 Eosinophils % 1.8 Basophils % 0.5 Neutrophils # 8.9 Lymphocytes # 0.9 Monocytes # 0.6 Eosinophils # 0.2 Basophils # 0.1 Sodium 130 L Potassium 4.3 Chloride 101 Carbon Dioxide 22 L BUN 23 Creatinine 1.46 H Est GFR ( Amer) 56 L Est GFR (Non-Af Amer) 46 L BUN/Creatinine Ratio 16 Glucose 99 Calculated Osmolality 274 L Calcium 8.5 L Cultures: Cultures 01/04/18 16:00 Wound Culture - Final Left Foot No growth. Exam - Constitutional Vitals: Temp Pulse Resp BP Pulse Ox 98.8 F 81 18 141/65 95 01/08/18 07:32 01/08/18 07:32 01/08/18 07:32 01/08/18 07:32 01/08/18 07:32 General appearance: average body habitus, cooperative, no acute distress - Head Head exam: Present: atraumatic, normal inspection, normocephalic - Eye Eye exam: Present: EOMI, normal appearance, PERRL Pupils: Present: normal accommodation - ENT ENT exam: Present: mucous membranes moist - Neck Neck exam: Present: normal inspection - Respiratory Respiratory exam: Present: CTAB. Absent: rales, respiratory distress, rhonchi, wheezes - Cardiovascular Cardiovascular exam: Present: RRR, +S1, +S2 - GI/Abdominal GI/Abdominal exam: Present: normal bowel sounds, soft. Absent: distended, tenderness - Extremities Exam Extremities exam: Present: pedal edema (1+ LLE), tenderness (left thigh surgical site - minimal). Absent: joint swelling Additional comments: Left medial thigh surgical site without erythema, warmth, or drainage. Wound edges well-approximated. Left foot dressing/splint C/D/I. - Neurological Exam Neurological exam: Present: alert, oriented X3, no focal deficits - Psychiatric Psychiatric exam: Present: normal affect, normal mood - Skin Skin exam: Present: dry, intact, normal color, warm - Additional findings Additional findings: EPIV noted to the LUE with transparent dressing C/D/I. - VTE Documentation of Mechanical Device: Intermittent pneumatic compression device Consult Discharge Plan - Plan Instructions: Vancomycin (Injection), Clopidogrel (By mouth), Lidocaine Patch ( On the skin), Cefepime (Injection) Additional Instructions: Follow up with PCP in 2-3 days after discharge. Recheck BMP and CBC at that time. Keep follow up with podiatry and vascular surgery as directed. Referrals: Tristen Sagastume DPM [Partnered Physician] - 01/30/18 9:30 am Yola Duckworth CNP [Advanced Practice Nurse] - 01/30/18 8:40 am Cosme Martínez MD [Non-Partnered Physician] - 01/15/18 8:30 am (Please arrive @ 0815.) Slim Delacruz MD [Partnered Physician] - 01/23/18 11:45 am Prescriptions: Cefepime HCl [Maxipime] 2,000 mg IVPB Q12HR 42 Days #84 vial Clopidogrel [Plavix] 75 mg PO DAILY 14 Days #14 tablet Lidocaine Patch [Lidoderm 5% patch] 1 each TP DAILY 14 Days #14 adh..patch Vancomycin [Vancocin] 1,000 mg IV Q24H 42 Days #42 vial - Attending Attestation I examined this patient and my medical decision-making was reviewed with the Resident Physician. I agree with the documented findings, disposition and treatment plan as described except to the extent set forth below.
--- NOTE | 2018-01-08 09:28 | Internal Med Progress Note ---
Date of Encounter: 01/08/18 Time of Encounter: 09:26 - Assessment and plan (1) Osteomyelitis Current Visit: Yes Status: Acute Assessment and plan: ID consulted, appreciate input. S/P balloon angioplasty 12/28/17. S/P Left Fem- Pop 01/01/18. Continue IV vancomycin and IV cefepime. Podiatry consulted; appreciate input. S/P left heel debridement 01/04/18. SW working on home IV antibiotics. Continue pain control. Discharging today needs PICC line placed Qualifiers: Osteomyelitis type: other chronic Osteomyelitis location: foot Laterality : left Qualified Code(s): M86.672 - Other chronic osteomyelitis, left ankle and foot (2) Hypo-osmolality and hyponatremia Current Visit: Yes Status: Acute Assessment and plan: Stable and asymptomatic. Could be in part to SSRI. Patient now back on diet. (3) Anemia Current Visit: Yes Status: Acute Assessment and plan: At baseline Qualifiers: Anemia type: due to chronic kidney disease Chronic kidney disease stage: stage 3 (moderate) Qualified Code(s): N18.3 - Chronic kidney disease, stage 3 (moderate); D63.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 (4) CKD (chronic kidney disease) Current Visit: Yes Status: Chronic Assessment and plan: Stage III CKD. Creatinine up again this AM; he states that he has not been drinking much water. Will start IV NS at 75 ml/hr and encourage to maintain PO hydration. Continue to use nephroprotective strategy and renally dose medications. Qualifiers: Chronic kidney disease stage: stage 3 (moderate) Qualified Code(s): N18.3 - Chronic kidney disease, stage 3 (moderate) (5) DVT prophylaxis Current Visit: Yes Status: Acute Assessment and plan: Continue SQ heparin. (6) Sepsis Current Visit: Yes Status: Resolved Assessment and plan: Resolved. Was likely secondary to osteomyeltitis of left foot. Qualifiers: Sepsis type: sepsis due to unspecified organism Qualified Code(s): A41.9 - Sepsis, unspecified organism (7) PAD (peripheral artery disease) Current Visit: Yes Status: Chronic (8) Hypertension Current Visit: Yes Status: Chronic Qualifiers: Hypertension type: essential hypertension Qualified Code(s): I10 - Essential (primary) hypertension - Time Spent With Patient Total time spent is greater than 50% in coordination of care (as documented) at patient's floor/unit and/or counseling patient: - Subjective Interval history: NO acute events, denies lower extremity pain. - Constitutional Vitals: Temp Pulse Resp BP Pulse Ox 98.8 F 81 18 141/65 95 01/08/18 07:32 01/08/18 07:32 01/08/18 07:32 01/08/18 07:32 01/08/18 07:32 General appearance: Present: cooperative, A&O X 3, pleasant, no acute distress, answers questions appropriately Exam: - Respiratory Respiratory exam: Present: CTAB. Absent: accessory muscle use, rales, rhonchi, wheezes Additional comments: Normal WOB - Cardiovascular Cardiovascular exam: Present: RRR, +S1, +S2. Absent: diastolic murmur, gallop, rubs, systolic murmur Additional comments: No BLE edema, left foot in bandage - GI/Abdominal GI/Abdominal exam: Present: normal bowel sounds, soft. Absent: distended, hepatomegaly, mass, splenomegaly, tenderness - Psychiatric Psychiatric exam: Present: normal affect, normal mood. Absent: agitated, anxious, depressed - Skin Skin exam: Present: dry, intact, warm. Absent: cyanosis, rash Internal Medicine: Result - Labs CBC & Chem 7: 01/08/18 04:45 01/08/18 04:45 Labs: Short CBC 01/08/18 Range/Units 04:45 WBC 10.9 (4.3-11.1) K/mcL Hgb 7.8 L (12.9-16.9) g/dL Hct 24.5 L (37.5-50.1) % Plt Count 349 (140-400) K/mcL Neutrophils # 8.9 (1.6-8.9) K/mcL BMP 01/08/18 04:45 Sodium 130 L Potassium 4.3 Chloride 101 Carbon Dioxide 22 L BUN 23 Creatinine 1.46 H Glucose 99 Calcium 8.5 L - ABG Interpretation ABG results: PT/INR, D-dimer PT 14.5 Seconds (9.4-12.1) H 12/26/17 01:07 - VTE Documentation of Mechanical Device: Intermittent pneumatic compression device Consult Discharge Plan - Plan Additional Instructions: Follow up with PCP in 2-3 days after discharge. Recheck BMP and CBC at that time. Keep follow up with podiatry and vascular surgery as directed. Referrals: Tristen Sagastume DPM [Partnered Physician] - 01/30/18 9:30 am Yola Duckworth CNP [Advanced Practice Nurse] - 01/30/18 8:40 am Cosme Martínez MD [Non-Partnered Physician] - 01/15/18 8:30 am (Please arrive @ 0815.) Slim Delacruz MD [Partnered Physician] - 01/23/18 11:45 am Prescriptions: Cefepime HCl [Maxipime] 2,000 mg IVPB Q12HR 42 Days #84 vial Clopidogrel [Plavix] 75 mg PO DAILY 14 Days #14 tablet Lidocaine Patch [Lidoderm 5% patch] 1 each TP DAILY 14 Days #14 adh..patch Vancomycin [Vancocin] 1,000 mg IV Q24H 42 Days #42 vial
[2018-01-08 11:51] VITALS: BP 127/64
[2018-01-08] MEDS: *HR* OxyCODONE Immed Rel 5 MG TABLET PO PRN (12:08)
[2018-01-08] MEDS ORDERED: Aminoglycoside Consult 1 EACH MC ONE (18:38)
== END 2018-01-08 18:39 | disposition home health service (06) | DRG 854 ==
LOC: EMEROO 13:37 → 3ANU 17:19 → 2NNU 12-28 16:21
PROVIDERS: ADMIT Internal Medicine Nephrology; ATTEND Internal Medicine Nephrology

== ENCOUNTER 2018-10-28 13:49 | Inpatient (IN) ==
--- NOTE | 2018-10-27 23:02 | Discharge Summary ---
Date of Encounter: 10/31/18 Time of Encounter: 12:00 - Discharge Diagnosis (1) Arthritis of left hip Priority: Primary Status: Chronic (2) Status post total hip replacement, left Priority: Primary Status: Acute (3) PAD (peripheral artery disease) Priority: Secondary Status: Chronic (4) HTN (hypertension) Priority: Secondary Status: Chronic Qualifiers: Hypertension type: unspecified Qualified Code(s): I10 - Essential (primary) hypertension (5) HLD (hyperlipidemia) Priority: Secondary Status: Chronic Qualifiers: Hyperlipidemia type: unspecified Qualified Code(s): E78.5 - Hyperlipidemia, unspecified (6) History of bladder cancer Priority: Secondary Status: Chronic (7) History of total cystectomy Priority: Secondary Status: Chronic (8) History of squamous cell carcinoma Priority: Secondary Status: Chronic (9) CKD (chronic kidney disease) Priority: Secondary Status: Chronic Qualifiers: Chronic kidney disease stage: unspecified stage Qualified Code(s): N18.9 - Chronic kidney disease, unspecified - Hospital Course Hospital course: Mr. Bajwa is a 83 year old male - Time Spent with Patient Total time spent providing and/or coordinating discharge services: - Discharge Medications Prescriptions: New Aspirin Enteric Coated [Aspirin EC] 325 mg PO BID 10 Days #20 tablet. No Action Paricalcitol [Zemplar] 1 mcg PO Q72H Sertraline [Zoloft] 50 mg PO DAILY Losartan [Cozaar] 25 mg PO DAILY Donepezil [Aricept] 5 mg PO DAILY amLODIPine [Norvasc] 5 mg PO DAILY Tramadol HCl [Ultram] 50 mg PO QID PRN PRN Reason: Pain [place]-3/Dha/Epa/Fish Oil [Fish Oil 1,000 mg Softgel] 1 cap PO DAILY Home Medications: Donepezil [Aricept] 5 mg PO DAILY 12/25/17 [History] Losartan [Cozaar] 25 mg PO DAILY 12/25/17 [History] [place]-3/Dha/Epa/Fish Oil [Fish Oil 1,000 mg Softgel] 1 cap PO DAILY 12/25/17 [History] Paricalcitol [Zemplar] 1 mcg PO Q72H 12/25/17 [History] Sertraline [Zoloft] 50 mg PO DAILY 12/25/17 [History] Tramadol HCl [Ultram] 50 mg PO QID PRN 12/25/17 [History] amLODIPine [Norvasc] 5 mg PO DAILY 12/25/17 [History] Aspirin Enteric Coated [Aspirin EC] 325 mg PO BID 10 Days #20 tablet. 10/27/18 [Rx] Allergies/Adverse Reactions: Allergy/AdvReac Type Severity Reaction Status Date / Time cephalexin [From Keflex] Allergy Hives Verified 10/29/18 11:59 Penicillins Allergy Hives Verified 10/29/18 11:59 Date of admission: 10/28/18 Primary care physician: Quinn Russell Discharging clinician: Wellington Louise Anticipated date of discharge: 10/31/18 - Patient Status Disposition: Transfer SNF Condition: Good Functional capacity at discharge: uses cane/walker Overall status at discharge: patient is progressing back to baseline - Discharge Instructions Follow Up With: Quinn Russell MD [Partnered Physician] - Sue Irvin PAC [Physician Well Drill Operator Helper Cable Tool] - 11/07/18 10:15 am Wellington Louise MD [Partnered Physician] - 11/27/18 5:15 pm Tristen Sagastume DPM [Partnered Physician] - 02/21/19 10:45 am Additional Instructions: Discharge Instructions: Total Hip Replacement Please call [facility] ([phone]), your Primary Care Physician, or report to the Emergency Room if you have any of the following symptoms: Nausea, vomiting, fever greater that 101.5, swelling, chest pain, shortness of breath, increased pain/redness/drainage/odor for your incision site, numbness/tingling, or any other concerning symptoms. ACTIVITY:Weight-bearing as tolerated for 8 weeks with hip dislocation precautions that physical therapy taught you. You may progress as tolerated under the guidance of your physical therapist. You do not need to sleep with a pillow between your legs. You can also seep on the operative side or on your stomach. Incentive Spirometer 10 times an hour. MEDICATIONS: Upon discharge resume your home medications. Take all the medications as prescribed. Take a stool softener if taking narcotic pain medications. Stool softeners are only effective if you drink enough fluids. Drink 6-8 glass of water or fluids a day, unless this is not allowed for another health problem. Despite using stool softeners, if you haven't had a bowel movement in 3 days, please switch to a gentle laxative. Gentle laxatives are sold over the counter. You should have a bowel movement within 24 hours, if not call the office. You will be discharged from the hospital with a prescription for pain medication. You are encouraged to decrease the use of narcotic pain medication as tolerated. Should you require a refill, please call the office. [facility] prescribes narcotic pain medication for only 4-6 weeks after surgery. If you require pain medication beyond this time period, you may be referred to your Primary Care Physician or to the Pain Clinic for further evaluation. Plan ahead for refills on pain medication as many narcotics either need to be picked up at the office or mailed. It is best to call 48-72 hours in advance of needing a prescription refill so you don't run out of medication. To help control the post-operative pain, you may take NSAIDs (Aleve,Advil, Motrin, ibuprofen, naprosyn) or Tylenol as prescribed on the bottle in addition to the pain medication. ANTICOAGULATION (blood thinners): Continue your Aspirin, Lovenox or Coumadin as prescribed to help prevent a blood clot in the leg or in the lungs. As long as your incision remains dry and you tolerate the NSAIDs (Aleve, Advil, Motrin, Ibuprofen, Naprosyn), it is OK to use the NSAIDS while you are taking your anticoagulation medication. Should your incision start to drain, stop the NSAID and contact our office. Common symptoms of blood clot in the legs include: localized pain, swelling, calf tenderness, redness or discoloration of the skin. Blood clot in the lung symptoms include: shortness of breath, rapid pulse, sweating, and chest pain that worsens with deep breathing, coughing up blood, lightheadedness, feelings of anxiety. If you experience any of these symptoms notify your physician immediately, go to the emergency room, or if having trouble breathing, call 911. WOUND CARE: Leave the dressing on for 7 to 10days. You may change the dressing if it is saturated greater than 50%. Do not get the dressing wet at anytime. Wash your hands with antibacterial soap, rinse and dry prior to any wound care. If you have kenneth the visiting nurse or rehab facility can remove the stapes 10-14 days after surgery and place steri-strips across the wound. Leave the steri-strips in place until they fall off on their own. You may let water from the shower run on top of the steri-strips. If you do not have a visiting nurse or rehab facility, you will need to return to the office at 10-14 days for the kenneth to be removed. If you have itching or redness around the dressing call the office. FOLLOW-UP: Please follow up with your surgeon in the orthopedic clinic in 6 weeks from the day of surgery. If you have kenneth that need to be removed, you will need to come back to the office in 10-14 days from the day of surgery. - Diet and Activity Activity: as per physical therapy Diet: advance to your usual diet
--- NOTE | 2018-10-28 13:23 | Anesthesia Evaluation PreOp ---
Date of Encounter: 10/28/18 Time of Encounter: 14:34 - Past History Planned Operation: Left Total Hip Arthroplasty Cardiac History: HTN, Hyperlipidemia Pulmonary History: Former smoker (quit 40 years), Snore IT NETWORK ARCHITECT History: Denies Any Significant HX Other Medical History: Renal (CKD stage 3), Other (H/O bladder CA S/P radical cystectomy, chemo/XRT) Anesthesia History: No Prior Anesthetic Complications, Past Anesthesia Alcohol Use: none Drug use: none Medications and Allergies Donepezil [Aricept] 5 mg PO DAILY 12/25/17 [History] Losartan [Cozaar] 25 mg PO DAILY 12/25/17 [History] [place]-3/Dha/Epa/Fish Oil [Fish Oil 1,000 mg Softgel] 1 cap PO DAILY 12/25/17 [History] Paricalcitol [Zemplar] 1 mcg PO Q72H 12/25/17 [History] Sertraline [Zoloft] 50 mg PO DAILY 12/25/17 [History] Tramadol HCl [Ultram] 50 mg PO QID PRN 12/25/17 [History] amLODIPine [Norvasc] 5 mg PO DAILY 12/25/17 [History] Aspirin Enteric Coated [Aspirin EC] 325 mg PO BID 10 Days #20 tablet. 10/27/18 [Rx] Docusate Sodium [Colace] 100 mg PO BID 5 Days #10 capsule 10/27/18 [Rx] OxyCODONE Immed Rel [Roxicodone 5 MG] 5 mg PO Q6HR PRN 5 Days #20 tablet 10/27/18 [Rx] Allergy/AdvReac Type Severity Reaction Status Date / Time cephalexin [From Keflex] Allergy Hives Verified 10/16/18 09:54 Penicillins Allergy Hives Verified 10/16/18 09:54 - Meds/Allergy Pre-op Review Medications Reviewed: Yes Allergies Reviewed: Yes Beta Blockers on Current Med List: No Anesthesia Results - Labs Laboratory Tests 10/16/18 10/16/18 10/16/18 10:08 10:08 10:08 WBC 10.0 Hgb 14.6 Hct 44.5 Plt Count 264 PT 10.5 INR 0.9 APTT 32.7 Sodium 134 L Potassium 4.9 BUN 31 H Creatinine 1.65 H - Imaging EKG: report reviewed (12/25/2017 SINUS RHYTHM) Anesthesia Exam O2 Sat Height 1.68 m Height 1.68 m Weight 81.647 kg Weight 81.647 kg O2 Sat by Pulse Oximetry 96 Vital Signs Temp Pulse Resp BP Pulse Ox 98.7 F 80 16 133/76 96 10/28/18 14:16 10/28/18 14:16 10/28/18 14:16 10/28/18 14:16 10/28/18 14:16 Height: 5'6'' Weight: 180 lbs NPO (# of Hours): 8 Pain Scale: 9 (left leg) Pain Scale Used: Numeric (1 - 10) - HEENT Pupil (Motor): EOMI Mallampati: II Teeth: Normal Oral Opening: Greater than 3 - IT NETWORK ARCHITECT LOC: Oriented IT NETWORK ARCHITECT Motor: Normal RUE, Normal LUE, Normal RLE, Normal Face, Deficit LLE IT NETWORK ARCHITECT Sensory: Normal: RUE, LUE, Face, Deficit: RLE, LLE - Cardiac Rhythm: Regular Murmur: None - Pulmonary Breath Sounds: bilateral Clear Respiratory Effort: Symmetrical Anesthesia Assess/Plan ASA Score: 3 Level of consciousness: Cooperative, Oriented, Tranquil Anesthetic Plan: Spinal Monitoring Plan: Standard Monitors Recovery Plan: PACU
--- NOTE | 2018-10-28 14:10 | History & Physical Report ---
Date of Encounter: 10/28/18 Time of Encounter: 14:10 24 Hour HP Update - Instructions Instructions: If the History and Physical is less than 30 days old and was completed prior to A.M. admission and or procedure and has NOT been updated on calendar day of procedure please complete this update prior to performing procedure. - Update Patient reports changes in Medical Condition: No Changes in examination, assessment, or condition: No Changes in Medication: No Preop tests/diagnostics Reviewed: Yes Surgery Remains Indicated: Yes Consent for Planned Operative Procedure(s) Verified: Yes - Pre-Operative Checklist Preoperative Checklist Indicated: No Prophylactic Antibiotic Ordered: Yes Is VTE Prophylaxis Indicated?: Yes
[2018-10-28] MEDS ORDERED: *HR* FentaNYL (PF) 100 MCG/2 ML VIAL ONE (14:14)
[2018-10-28] MEDS ORDERED: Ringers Solution, Lactated 1,000 ML IVC SCH ×2 (14:15→18:29)
[2018-10-28] MEDS ORDERED: Ethanol\\Acetic Acid\\Na Ace\\Ben 1,000 ML IRRIG.SOLN IR ONE (14:55)
[2018-10-28] MEDS ORDERED: *HR* HYDROmorphone (PF) 1 MG/ML SYRINGE IVP PRN (15:03)
[2018-10-28] MEDS ORDERED: Propofol 500 MG/50 ML INFUS..BTL ONE (15:06)
[2018-10-28] MEDS ORDERED: Tranexamic Acid 1,000 MG/10 ML VIAL ONE (15:30)
--- NOTE | 2018-10-28 16:41 | Anesthesia Procedures ---
Date of Encounter: 10/28/18 Time of Encounter: 15:20 Procedures: Anesthesia - Epidural/Spinal Patient examined: Yes Sedation: Fentanyl (mcg): 100 Site Prep: Sterile prep and drape Patient position: upright Local Anesthetic: Lidocaine 1% Blood: No CSF: Yes Paresthesia: No Spinal Needle Gauge: 25 Spinal Dose: 2ml 0.5% marcaine
[2018-10-28] MEDS ORDERED: EPHEDrine 50 MG/ML VIAL ONE (16:50)
[2018-10-28] MEDS ORDERED: *HR* Propofol 200 MG/20 ML VIAL IVP ONE (16:55)
--- NOTE | 2018-10-28 16:56 | Orthopedic Operative Note ---
Date of procedure: 10/28/18 Pre-op diagnosis: Left hip arthritis Post-op diagnosis: same Procedure: Procedure: Left Total Hip Replacment robotic-assisted Estimated blood loss: 200 cc Hardware: Metal and polyethylene replacement. Nancy DM Cup: 56 cup Femoral size 9 stem Head: 0 head with Nancy Procedural Notes: 19 mm short operative versus nonoperative leg is measured by preoperative CT scan patient noted to have severe Grade 4 arthritic changes femoral head acetabular socket, procedure performed with robotic assistance. Operative procedure: The patient was brought to the operating room and placed on the operating room table. After general anesthesia was administered the patient was placed in the lateral decubitus position with the operative leg up. All pressure points were padded appropriately and the head was stabilized in the neutral position. The operative extremity was prepped and draped in the sterile surgical fashion patient received IV antibiotic prior to skin incision. 3 Steinmann pins were placed in the iliac crest 3 cm proximal to the anterior superior iliac spine this was for the robotic-assisted sensor. This was done through a small 2 cm incision. A standard posterior approach is made to the operative hip, the incision was made through the skin and subcutaneous tissue hemostasis was obtained with Bovie cautery. Using careful sharp dissection the fascia was identified and incised exposing the external rotators. The greater trochanter was marked, and length was measured at this time utilizing robotic assistance. The external rotators were released off the greater trochanter and tagged with #2 FiberWire suture. The capsule was T'd open and the hip was brought into internal rotation. Patient noted to have severe grade 4 arthritic changes femoral head. The femoral neck cut was made at the appropriate level roughly 10 mm proximal to the lesser trochanter aced on preoperative templating. An anterior capsulotomy was performed for the anterior retractor. Soft tissues removed from the acetabulum. Patient noted to have severe grade 4 arthritic changes acetabulum. The acetabulum reference point was confirmed. The acetabulum was then mapped with robotic assistance. Based on the preoperative plan the acetabulum was reamed in one step with a 56 reamer. The 56 acetabulum was impacted with robotic assistance and 43 degrees of abduction and 17 degrees of anteversion. The hip was brought back in to internal rotation and prepared with the spreader box operator followed by the canal finder followed by the reaming process to a size 9/10 broaching process in 20 degrees anteversion. It was broached up to the appropriate size 9 Trial reduction revealed leg lengths close to normal. The femoral implant was impacted in place in 20 degrees of anteversion. Trial reduction found the hip to be stable with 0 head and Nancy. The trials were removed and the real implants were impacted in place. The hip was reduced, patient had robotic confirmed leg length of 7 mm longer than the contralateral side. The hip had excellent stability with forward flexion to 90 degrees adduction of 30 degrees and internal rotation of 60 degrees. The hip had no shuck. The hip sat with an antibacterial solution. It was irrigated out with 2 L of pulse irrigation. The Steinmann pins were removed. The hip was closed by the PA. The deep tissue was irrigated and closed deep with #1 PDS suture super ficially with 0 PDS suture and skin was closed with Dermabond and zip tie. The patient was placed in a sterile dressing and abduction pillow. The patient was extubated and transferred to the recovery room in stable condition. Anesthesia: spinal Surgeon: Wellington Louise Was there an web assistant present: No Estimated blood loss (cc): 200 Condition: stable Disposition: PACU
[2018-10-28 18:02] LABS: Hematocrit 38.2 % (37.5-50.1); Hemoglobin 12.3 g/dL (12.9-16.9)
[2018-10-28] MEDS ORDERED: Ondansetron 4 MG/2 ML VIAL IVP PRN (18:29)
[2018-10-28] MEDS ORDERED: *HR* Promethazine 25 MG/ML VIAL IVP PRN (18:29)
[2018-10-28] MEDS ORDERED: *HR* OxyCODONE/APAP 5/325 TABLET PO PRN (18:29)
[2018-10-28] MEDS ORDERED: Temazepam 15 MG CAPSULE PO PRN (18:29)
[2018-10-28] MEDS ORDERED: traMADol 50 MG TABLET PO PRN (18:29)
[2018-10-28] MEDS ORDERED: MOM Conc 10 ML UD.LIQ PO PRN (18:29)
[2018-10-28] MEDS ORDERED: Sennosides 8.6 MG TABLET PO PRN (18:29)
[2018-10-28] MEDS: *HR* OxyCODONE Immed Rel 5 MG TABLET PO PRN ×2 (19:07→23:15)
--- NOTE | 2018-10-28 19:33 | Anesthesia Evaluation Post Op ---
Date of Encounter: 10/28/18 Time of Encounter: 18:35 - Vital Signs Vital Signs: Last Vital Signs Temp 97.6 F 10/28/18 18:34 Pulse 69 10/28/18 18:34 Resp 16 10/28/18 18:34 BP 146/79 10/28/18 18:34 Pulse Ox 94 10/28/18 18:34 - Lungs Lungs: Clear Ascult./Percussion - Airway Airway: Non-obstructed - Cardiovascular Regular Rate - Mental Status Mental Status: Alert & Oriented, Answers Appropriately - Pain Pain Scale: 2 - Nausea Vomiting Nausea Vomiting: Not Present - Hydration Hydration: NPO - Discharge PostOp Status: Transfer Patient to floor
[2018-10-28] MEDS: Clindamycin 900 MG/50 ML 900 MG/50 ML IV.SOLN IVPB SCH (20:22)
[2018-10-28] MEDS: Ascorbic Acid 500 MG TABLET PO SCH (22:34)
[2018-10-29] MEDS: Clindamycin 900 MG/50 ML 900 MG/50 ML IV.SOLN IVPB SCH (03:18)
[2018-10-29] MEDS: *HR* OxyCODONE Immed Rel 5 MG TABLET PO PRN ×3 (03:25→15:27)
--- NOTE | 2018-10-29 06:43 | Orthopedics Progress Note ---
Date of Encounter: 10/29/18 Time of Encounter: 06:42 Subjective Interval history: Patient was seen this morning doing well without complaints. Afebrile vital signs stable. Operative extremity: Neurovascularly intact Dressing clean dry and intact Calves nontender Assessment and plan: Continue with postoperative care Objective Vital signs: Vital Signs Temp Pulse Resp BP Pulse Ox 10/29/18 04:48 98.3 F 94 18 109/65 95 10/28/18 23:15 98.2 F 93 16 129/69 98 10/28/18 18:34 97.6 F 69 16 146/79 94 10/28/18 18:14 97.8 F 83 16 142/77 98 10/28/18 18:04 97.8 F 68 16 139/68 99 10/28/18 17:54 72 16 135/72 98 10/28/18 17:44 73 16 111/63 98 10/28/18 17:34 98.1 F 93 16 99/62 97 10/28/18 15:47 80 122/66 95 10/28/18 15:42 80 116/64 97 10/28/18 15:35 82 124/67 96 10/28/18 15:23 82 143/82 96 10/28/18 14:16 98.7 F 80 16 133/76 96 Intake and Output 10/28/18 10/28/18 10/29/18 15:59 23:59 07:59 Intake Total 50 / 50 200 / 200 Output Total 200 / 200 550 / 550 Balance -150 / -150 -350 / -350 Intake: IV Fluids 50 / 50 Cleocin Premix 900 MG/50 ML 900 50 / 50 mg In 50 ml @ 50 mls/hr IVPB Q8H [facility] Rx#:[id number] Oral 200 / 200 Output: Urine 0 / 0 550 / 550 Estimated Blood Loss 200 / 200 Other: Weight 81.647 kg 81.3 kg Patient Weight 10/29/18 23:59 Weight 81.3 kg - Labs CBC & BMP: 10/28/18 17:48 Labs: Abnormal lab results Hgb 12.3 g/dL (12.9-16.9) L 10/28/18 17:48 Consult Discharge Plan - Plan Referrals: Quinn Russell MD [Partnered Physician] -
[2018-10-29] MEDS ORDERED: Ketorolac 15 MG/ML VIAL IVP PRN (06:48)
[2018-10-29 07:27] LABS: Basophils % 0.4 %; Eosinophils % 0.2 %; Hemoglobin 11.5 g/dL (12.9-16.9); Immature Granulocytes % 0.3 % (0-4); Lymphocytes # 0.6 K/mcL (0.6-4.6); Lymphocytes % 6.1 %; Mean Corpuscular HGB Conc 32.9 g/dL (31.6-35.5); Mean Corpuscular Hemoglobin 27.3 pg (28.0-33.3); Mean Corpuscular Volume 83.1 fL (83.0-100.0); Mean Platelet Volume 9.2 fL (9.4-12.4); Monocytes # 0.7 K/mcL (0.0-1.3); Monocytes % 6.7 %; Neutrophils # 8.8 K/mcL (1.6-8.9); Platelet Count 220 K/mcL (140-400); Red Blood Count 4.21 M/mcL (4.19-5.50); Segmented Neutrophils % 86.3 %
[2018-10-29] MEDS: amLODIPine 5 MG TABLET PO SCH (07:41)
[2018-10-29] MEDS: Ascorbic Acid 500 MG TABLET PO SCH ×2 (07:41→15:26)
[2018-10-29] MEDS: Aspirin Enteric Coated 81 MG Tablet PO SCH (07:42)
[2018-10-29] MEDS: Multivit/Ca/Min/Fe/FA 1 TAB TABLET PO SCH (07:42)
[2018-10-29 07:45] LABS: Calcium 8.7 mg/dL (8.6-10.3); Potassium 4.5 mEq/L (3.5-5.1)
[2018-10-29] MEDS: (Omega-3/Dha/Epa/Fish Oil [Fish Oil 1,000 Mg Softgel] PO SCH (07:45)
--- NOTE | 2018-10-29 08:38 | Event Note ---
Date of Encounter: 10/29/18
[2018-10-29] MEDS ORDERED: Aspirin Enteric Coated 81 MG Tablet PO SCH (09:00)
[2018-10-29] MEDS: Acetaminophen IV 1,000 MG/100 ML INFUS..BTL IVPB PRN ×2 (12:11→18:41)
--- NOTE | 2018-10-29 16:15 | Physician Discharge Referral ---
ExtendedCare Referral Info Transfer To: [facility] Provider in Charge: Dani Tyson Diagnosis (1) Status post total hip replacement, left Priority: Primary Status: Acute (2) Arthritis of left hip Priority: Primary Status: Chronic (3) CKD (chronic kidney disease) Priority: Secondary Status: Chronic (4) HLD (hyperlipidemia) Priority: Secondary Status: Chronic (5) HTN (hypertension) Priority: Secondary Status: Chronic (6) History of bladder cancer Priority: Secondary Status: Chronic (7) History of squamous cell carcinoma Priority: Secondary Status: Chronic (8) History of total cystectomy Priority: Secondary Status: Chronic (9) PAD (peripheral artery disease) Priority: Secondary Status: Chronic Expected Duration of Placement: <30 days Prognosis: Good Aware of Diagnosis: Patient Aware of Prognosis: Patient - Transfer Medications Home Medications: Donepezil [Aricept] 5 mg PO DAILY 12/25/17 [History] Losartan [Cozaar] 25 mg PO DAILY 12/25/17 [History] [place]-3/Dha/Epa/Fish Oil [Fish Oil 1,000 mg Softgel] 1 cap PO DAILY 12/25/17 [History] Paricalcitol [Zemplar] 1 mcg PO Q72H 12/25/17 [History] Sertraline [Zoloft] 50 mg PO DAILY 12/25/17 [History] Tramadol HCl [Ultram] 50 mg PO QID PRN 12/25/17 [History] amLODIPine [Norvasc] 5 mg PO DAILY 12/25/17 [History] Aspirin Enteric Coated [Aspirin EC] 325 mg PO BID 10 Days #20 tablet. 10/27/18 [Rx] Docusate Sodium [Colace] 100 mg PO BID 5 Days #10 capsule 10/27/18 [Rx] OxyCODONE Immed Rel [Roxicodone 5 MG] 5 mg PO Q6HR PRN 5 Days #20 tablet 10/27/18 [Rx] Allergies/Adverse Reactions: Allergy/AdvReac Type Severity Reaction Status Date / Time cephalexin [From Keflex] Allergy Hives Verified 10/29/18 11:59 Penicillins Allergy Hives Verified 10/29/18 11:59 - Respiratory Orders None Smoking Cessation: Smoking cessation has been advised. For more information, call the [place] Tobacco Quit Line at 1-930-XAUB-NOW. - Ancillary Orders May use pressure relief devices daily prn, May go on HANS w/family/respon republican w/meds at nurse discretion PRN, May consult with Dentist, Pool Installer, Posting Machine Operator PRN - Advance Directives Code Status: Full Code - Mobility Orders Chair, Ambulate - Rehabiliation Orders Rehab Potential: Good Rehab Orders: ROM Exercises, Evaluation for Physical Therapy, Evaluation for Occupational Therapy Other: Opsite dressing, leave intact until first post-operative visit. If dressing becomes >50% saturated, contact office, remove dressing and place appropriate dressing in its place. Do not allow for dressing to get wet. Zipline/[place] in place, plan to remove at post-operative day #14-16. Total Joint Precautions x 6 weeks Apply cold therapy wrap 3-6x/day for 20 minutes at a time. Encourage ambulation throughout the day Use Incentive spirometer 10x/hour. Elevate affected extremity above heart as tolerated. Brace: Wear hip abductor brace at night x 6 weeks. - Treatments Skin tear care topically daily PRN per policy - Diet Orders Regular CERTIFICATION: I certify that the transfer of the above named patient to an Extended Care Facility is necessary for the continuing treatment of the diagnosis listed. The above information is true and accurate reflection of patient's current condition. Confidential - Redisclosure prohibited without a patient's written consent.
[2018-10-30] MEDS: Acetaminophen IV 1,000 MG/100 ML INFUS..BTL IVPB PRN ×2 (02:58→20:55)
[2018-10-30 03:39] LABS: Basophils % 0.5 %; Eosinophils # 0.3 K/mcL (0.0-0.6); Eosinophils % 3.7 %; Hematocrit 30.9 % (37.5-50.1); Hemoglobin 10.4 g/dL (12.9-16.9); Immature Granulocytes % 0.3 % (0-4); Lymphocytes % 11.8 %; Mean Corpuscular HGB Conc 33.7 g/dL (31.6-35.5); Mean Corpuscular Hemoglobin 27.9 pg (28.0-33.3); Mean Corpuscular Volume 82.8 fL (83.0-100.0); Mean Platelet Volume 9.1 fL (9.4-12.4); Monocytes # 0.7 K/mcL (0.0-1.3); Monocytes % 7.7 %; Neutrophils # 6.6 K/mcL (1.6-8.9); Platelet Count 176 K/mcL (140-400); Red Blood Count 3.73 M/mcL (4.19-5.50); Red Cell Distribution Width 15.9 % (11.5-14.5)
[2018-10-30 03:54] LABS: Calcium 8.2 mg/dL (8.6-10.3); Potassium 4.5 mEq/L (3.5-5.1)
--- NOTE | 2018-10-30 06:46 | Orthopedics Progress Note ---
Date of Encounter: 10/30/18 Time of Encounter: 06:45 Subjective Interval history: Patient was seen this morning doing well without complaints. Afebrile vital signs stable. Operative extremity: Neurovascularly intact Dressing clean dry and intact Calves nontender Assessment and plan: Continue with postoperative care Hematocrit 30 Objective Vital signs: Vital Signs Temp Pulse Resp BP Pulse Ox 10/30/18 06:41 97.6 F 95 15 142/66 99 10/29/18 23:10 98.6 F 93 17 147/54 94 10/29/18 20:16 94 10/29/18 18:34 98.9 F 97 17 108/60 94 10/29/18 15:28 98.3 F 104 18 119/61 97 10/29/18 10:53 98.7 F 92 18 131/66 95 Intake and Output 10/29/18 10/29/18 10/30/18 15:59 23:59 07:59 Intake Total 250 / 250 840 / 840 700 / 700 Output Total 250 / 250 500 / 500 950 / 950 Balance 0 / 0 340 / 340 -250 / -250 Intake: IV Fluids 150 / 150 600 / 600 100 / 100 Lactated Ringers 1,000 ML @ 75 500 / 500 mls/hr IVC .[id number] [facility] Rx#: [id number] Ofirmev 1,000 mg/100 ml 1,000 100 / 100 100 / 100 100 / 100 mg In 100 ml @ 400 mls/hr IVPB Q6HR PRN Rx#:[id number] Cleocin Premix 900 MG/50 ML 900 50 / 50 mg In 50 ml @ 50 mls/hr IVPB Q8H [facility] Rx#:[id number] Oral 100 / 100 240 / 240 600 / 600 Output: Urine 250 / 250 500 / 500 950 / 950 Other: Meal Lunch Dinner Percent of Meal Consumed 50% 90% Weight 86.7 kg - Labs CBC & BMP: 10/30/18 02:59 10/30/18 02:59 Labs: Abnormal lab results RBC 3.73 M/mcL (4.19-5.50) L 10/30/18 02:59 Hgb 10.4 g/dL (12.9-16.9) L 10/30/18 02:59 Hct 30.9 % (37.5-50.1) L 10/30/18 02:59 MCV 82.8 fL (83.0-100.0) L 10/30/18 02:59 MCH 27.9 pg (28.0-33.3) L 10/30/18 02:59 RDW 15.9 % (11.5-14.5) H 10/30/18 02:59 MPV 9.1 fL (9.4-12.4) L 10/30/18 02:59 Sodium 133 mEq/L (136-145) L 10/30/18 02:59 BUN 30 mg/dL (8-23) H 10/30/18 02:59 Creatinine 1.68 mg/dL (0.70-1.30) H 10/30/18 02:59 Est GFR ( Amer) 48 (> 60) L 10/30/18 02:59 Est GFR (Non-Af Amer) 39 (> 60) L 10/30/18 02:59 Glucose 119 mg/dL (70-105) H 10/30/18 02:59 Calcium 8.2 mg/dL (8.6-10.3) L 10/30/18 02:59 Consult Discharge Plan - Plan Referrals: Quinn Russell MD [Partnered Physician] -
[2018-10-30] MEDS: amLODIPine 5 MG TABLET PO SCH (08:31)
[2018-10-30] MEDS: *HR* OxyCODONE Immed Rel 5 MG TABLET PO PRN ×2 (08:31→13:42)
[2018-10-30] MEDS: Aspirin Enteric Coated 81 MG Tablet PO SCH (08:31)
[2018-10-30] MEDS: Multivit/Ca/Min/Fe/FA 1 TAB TABLET PO SCH (08:32)
[2018-10-30] MEDS: (Omega-3/Dha/Epa/Fish Oil [Fish Oil 1,000 Mg Softgel] PO SCH (08:32)
[2018-10-30] MEDS: Ascorbic Acid 500 MG TABLET PO SCH ×2 (08:32→16:37)
--- NOTE | 2018-10-30 09:56 | Event Note ---
Date of Encounter: 10/30/18
[2018-10-31 06:15] LABS: Basophils # 0.1 K/mcL (0.0-0.2); Basophils % 0.6 %; Eosinophils # 0.4 K/mcL (0.0-0.6); Eosinophils % 4.9 %; Hematocrit 31.9 % (37.5-50.1); Hemoglobin 10.3 g/dL (12.9-16.9); Immature Granulocytes % 0.6 % (0-4); Lymphocytes # 0.9 K/mcL (0.6-4.6); Mean Corpuscular HGB Conc 32.3 g/dL (31.6-35.5); Mean Corpuscular Hemoglobin 27.4 pg (28.0-33.3); Mean Corpuscular Volume 84.8 fL (83.0-100.0); Mean Platelet Volume 8.9 fL (9.4-12.4); Monocytes # 0.5 K/mcL (0.0-1.3); Neutrophils # 6.7 K/mcL (1.6-8.9); Platelet Count 179 K/mcL (140-400); Red Blood Count 3.76 M/mcL (4.19-5.50); Red Cell Distribution Width 15.9 % (11.5-14.5); Segmented Neutrophils % 77.9 %
[2018-10-31 06:34] LABS: Calcium 8.7 mg/dL (8.6-10.3); Potassium 4.6 mEq/L (3.5-5.1)
--- NOTE | 2018-10-31 06:42 | Orthopedics Progress Note ---
Date of Encounter: 10/31/18 Time of Encounter: 06:41 Subjective Interval history: Patient was seen this morning doing well without complaints. Afebrile vital signs stable. Operative extremity: Neurovascularly intact Dressing clean dry and intact Calves nontender Assessment and plan: Continue with postoperative care Plan for discharge today Objective Vital signs: Vital Signs Temp Pulse Resp BP Pulse Ox 10/31/18 04:18 97.7 F 85 16 140/56 98 10/30/18 23:45 98.1 F 91 16 128/82 96 10/30/18 20:32 94 10/30/18 19:30 78 127/64 10/30/18 18:33 98.6 F 100 16 94/57 94 10/30/18 15:31 99.7 F H 93 17 131/70 95 10/30/18 11:17 98.2 F 89 15 132/70 95 Intake and Output 10/30/18 10/30/18 10/31/18 15:59 23:59 07:59 Intake Total 360 / 360 840 / 840 Output Total 600 / 600 700 / 700 Balance 360 / 360 240 / 240 -700 / -700 Intake: Oral 360 / 360 840 / 840 Output: Urine 600 / 600 700 / 700 Other: Meal Breakfast Dinner Percent of Meal Consumed 100% 70% - Labs CBC & BMP: 10/31/18 05:46 10/31/18 05:46 Labs: Abnormal lab results RBC 3.76 M/mcL (4.19-5.50) L 10/31/18 05:46 Hgb 10.3 g/dL (12.9-16.9) L 10/31/18 05:46 Hct 31.9 % (37.5-50.1) L 10/31/18 05:46 MCH 27.4 pg (28.0-33.3) L 10/31/18 05:46 RDW 15.9 % (11.5-14.5) H 10/31/18 05:46 MPV 8.9 fL (9.4-12.4) L 10/31/18 05:46 Sodium 133 mEq/L (136-145) L 10/31/18 05:46 BUN 30 mg/dL (8-23) H 10/31/18 05:46 Creatinine 1.76 mg/dL (0.70-1.30) H 10/31/18 05:46 Est GFR ( Amer) 45 (> 60) L 10/31/18 05:46 Est GFR (Non-Af Amer) 37 (> 60) L 10/31/18 05:46 Glucose 120 mg/dL (70-105) H 10/31/18 05:46 Consult Discharge Plan - Plan Referrals: Quinn Russell MD [Partnered Physician] - Sue Irvin PAC [Physician Electric Organ Inspector And Repairer] - 11/07/18 10:15 am Wellington Louise MD [Partnered Physician] - 11/27/18 5:15 pm Tristen Sagastume DPM [Partnered Physician] - 02/21/19 10:45 am
[2018-10-31] MEDS: Aspirin Enteric Coated 81 MG Tablet PO SCH (08:58)
[2018-10-31] MEDS: Ascorbic Acid 500 MG TABLET PO SCH (08:58)
[2018-10-31] MEDS: Multivit/Ca/Min/Fe/FA 1 TAB TABLET PO SCH (08:58)
[2018-10-31] MEDS: (Omega-3/Dha/Epa/Fish Oil [Fish Oil 1,000 Mg Softgel] PO SCH (08:59)
[2018-10-31] MEDS: amLODIPine 5 MG TABLET PO SCH (08:59)
[2018-10-31 11:56] VITALS: BP 137/68
== END 2018-10-31 12:50 | DRG 470 ==
LOC: SAMDAY 13:49 → 3NENU 18:29
PROVIDERS: ADMIT Orthopaedic Surgery; ATTEND Orthopaedic Surgery

== ENCOUNTER 2020-03-09 20:38 | Inpatient (IN) ==
[2020-03-09] MEDS ORDERED: Piperacillin/Tazobactam 3.375 GM in 0.9 % Sodium Chloride Mini Bag 100 ML IVPB ONE (21:58)
[2020-03-09 22:19] LABS: Basophils # 0.1 K/mcL (0.0-0.2); Basophils % 0.5 %; Eosinophils % 9.7 %; Hematocrit 41.2 % (37.5-50.1); Hemoglobin 13.1 g/dL (12.9-16.9); Immature Granulocytes % 0.7 % (0-4); Lymphocytes % 9.5 %; Mean Corpuscular HGB Conc 31.8 g/dL (31.6-35.5); Mean Corpuscular Hemoglobin 27.2 pg (28.0-33.3); Mean Corpuscular Volume 85.7 fL (83.0-100.0); Mean Platelet Volume 9.3 fL (9.4-12.4); Monocytes # 0.4 K/mcL (0.0-1.3); Monocytes % 3.9 %; Neutrophils # 8.1 K/mcL (1.6-8.9); Platelet Count 244 K/mcL (140-400); Red Blood Count 4.81 M/mcL (4.19-5.50); Red Cell Distribution Width 15.6 % (11.5-14.5); Segmented Neutrophils % 75.7 %; White Blood Count 10.7 K/mcL (4.3-11.1)
[2020-03-09 22:34] LABS: Calcium 8.7 mg/dL (8.6-10.3); Potassium 3.8 mEq/L (3.5-5.1)
[2020-03-10] MEDS ORDERED: Naloxone 0.4 MG/ML INJ IVP PRN (01:12)
[2020-03-10] MEDS ORDERED: *HR* Promethazine 25 MG/ML VIAL IVP PRN (02:58)
[2020-03-10] MEDS ORDERED: 0.9 % Sodium Chloride 1,000 ML IVC SCH (03:00)
[2020-03-10 06:31] LABS: INR 1.1; Prothrombin Time 12.1 Seconds (9.4-12.1)
[2020-03-10 06:34] LABS: Activated Partial Thrombo Time 27.8 Seconds (26.0-36.0)
[2020-03-10 06:37] LABS: Basophils % 0.4 %; Eosinophils % 11.6 %; Hematocrit 33.3 % (37.5-50.1); Immature Granulocytes % 0.4 % (0-4); Lymphocytes # 0.8 K/mcL (0.6-4.6); Lymphocytes % 9.1 %; Mean Corpuscular Hemoglobin 28.4 pg (28.0-33.3); Mean Platelet Volume 9.6 fL (9.4-12.4); Monocytes # 0.5 K/mcL (0.0-1.3); Monocytes % 5.5 %; Neutrophils # 6.1 K/mcL (1.6-8.9); Platelet Count 188 K/mcL (140-400); Red Blood Count 3.87 M/mcL (4.19-5.50); Red Cell Distribution Width 15.5 % (11.5-14.5); White Blood Count 8.4 K/mcL (4.3-11.1)
[2020-03-10 06:45] LABS: Bilirubin,Total 0.4 mg/dL (0.3-1.0); Calcium 8.4 mg/dL (8.6-10.3); Globulin 2.9 g/dL (2.4-3.5); Magnesium 1.6 mg/dL (1.6-2.6); Phosphorous 2.7 mg/dL (2.7-4.5); Potassium 3.9 mEq/L (3.5-5.1); Total Protein 5.9 g/dL (6.4-8.9)
[2020-03-10] MEDS: Piperacillin/Tazobactam 3.375 GM in 0.9 % Sodium Chloride Mini Bag 100 ML IVPB SCH ×2 (09:22→20:46)
[2020-03-10] MEDS ORDERED: paricalcitoL 1 MCG CAPSULE PO SCH (18:00)
[2020-03-10 18:49] LABS: blaKPC Carbapenem-Resist Gene Not Detected (Not Detect); mecA Methicillin-Resist Gene DETECTED (Not Detect); vanA/B Vancomycin-Resist Genes Not Detected (Not Detect)
[2020-03-10 18:50] LABS: Acinetobacter baumannii by PCR Not Detected (Not Detect); Candida albicans by PCR Not Detected (Not Detect); Candida glabrata by PCR Not Detected (Not Detect); Candida krusei by PCR Not Detected (Not Detect); Candida parapsilosis by PCR Not Detected (Not Detect); Candida tropicalis by PCR Not Detected (Not Detect); Enterobacter cloacae Cmplx PCR Not Detected (Not Detect); Enterobacteriaceae by PCR Not Detected (Not Detect); Enterococcus by PCR Not Detected (Not Detect); Escherichia coli by PCR Not Detected (Not Detect); Klebsiella oxytoca by PCR Not Detected (Not Detect); Klebsiella pneumoniae by PCR Not Detected (Not Detect); Proteus by PCR Not Detected (Not Detect); Pseudomonas aeruginosa by PCR Not Detected (Not Detect); Serratia marcescens by PCR Not Detected (Not Detect); Staphylococcus aureus by PCR DETECTED (Not Detect); Streptococcus agalactiae(B)PCR Not Detected (Not Detect); Streptococcus by PCR Not Detected (Not Detect); Streptococcus pneumoniae PCR Not Detected (Not Detect); Streptococcus pyogenes (A) PCR Not Detected (Not Detect)
[2020-03-10] MEDS ORDERED: Vancomycin 1,250 MG/262.5 ML IV.SOLN IVPB SCH (21:00)
[2020-03-11 06:00] LABS: Basophils % 0.6 %; Eosinophils # 0.9 K/mcL (0.0-0.6); Eosinophils % 13.6 %; Hemoglobin 11.1 g/dL (12.9-16.9); Immature Granulocytes % 0.5 % (0-4); Lymphocytes # 1.2 K/mcL (0.6-4.6); Lymphocytes % 18.1 %; Mean Corpuscular HGB Conc 32.6 g/dL (31.6-35.5); Mean Corpuscular Hemoglobin 27.3 pg (28.0-33.3); Mean Corpuscular Volume 83.7 fL (83.0-100.0); Mean Platelet Volume 9.2 fL (9.4-12.4); Monocytes # 0.4 K/mcL (0.0-1.3); Monocytes % 5.6 %; Platelet Count 190 K/mcL (140-400); Red Blood Count 4.06 M/mcL (4.19-5.50); Red Cell Distribution Width 15.6 % (11.5-14.5); Segmented Neutrophils % 61.6 %; White Blood Count 6.6 K/mcL (4.3-11.1)
[2020-03-11] MEDS ORDERED: Vancomycin 1,000 MG, 0.9 % Sodium Chloride 1,000 ML IR ONE ×2 (06:00→13:09)
[2020-03-11 06:23] LABS: Calcium 8.6 mg/dL (8.6-10.3); Magnesium 1.5 mg/dL (1.6-2.6); Potassium 4.2 mEq/L (3.5-5.1)
[2020-03-11] MEDS: Piperacillin/Tazobactam 3.375 GM in 0.9 % Sodium Chloride Mini Bag 100 ML IVPB SCH ×3 (07:53→23:23)
[2020-03-11 10:19] LABS: Vancomycin,Trough 11 mcg/mL (5-10)
[2020-03-11] MEDS ORDERED: *HR* Promethazine 25 MG/ML VIAL IVP PRN ×3 (10:36→13:09)
[2020-03-11] MEDS ORDERED: *HR* OxyCODONE Immed Rel 5 MG TABLET PO PRN ×2 (10:36→13:09)
[2020-03-11] MEDS ORDERED: Ondansetron 4 MG/2 ML VIAL IVP ONE ×2 (10:36→13:09)
[2020-03-11] MEDS ORDERED: *HR* HYDROmorphone PF 0.5 MG/0.5 ML SYRINGE IVP PRN ×2 (10:36→13:09)
[2020-03-11] MEDS ORDERED: Bupivacaine/EPI 1:200k 0.25%PF 10 ML VIAL INFILT ONE (11:05)
[2020-03-11] MEDS ORDERED: Lidocaine -MPF 2% 2 ML VIAL ONE (11:34)
[2020-03-11] MEDS ORDERED: *HR* FentaNYL (PF) 100 MCG/2 ML VIAL ONE (11:34)
[2020-03-11 12:24] LABS: Creatine Kinase 14 Units/L (30-223)
[2020-03-11] MEDS ORDERED: DAPTOmycin 450 MG in 0.9 % Sodium Chloride 100 ML IVPB SCH (12:30)
[2020-03-11] MEDS ORDERED: Naloxone 0.4 MG/ML INJ IVP PRN (13:09)
[2020-03-11] MEDS ORDERED: Perflutren Lipid Microsphere 1.3 ML in 0.9 % Sodium Chloride 8.7 ML IVP PRN (13:40)
[2020-03-11] MEDS: *HR* OxyCODONE/APAP 5/325 TABLET PO PRN (20:08)
[2020-03-11] MEDS ORDERED: Piperacillin/Tazobactam 3.375 GM in 0.9 % Sodium Chloride Mini Bag 100 ML IVPB SCH (21:00)
[2020-03-12] MEDS: *HR* OxyCODONE/APAP 5/325 TABLET PO PRN ×4 (01:58→21:33)
[2020-03-12 06:09] LABS: Basophils % 0.5 %; Eosinophils # 0.8 K/mcL (0.0-0.6); Eosinophils % 12.1 %; Hematocrit 35.8 % (37.5-50.1); Hemoglobin 11.6 g/dL (12.9-16.9); Immature Granulocytes % 0.6 % (0-4); Lymphocytes # 1.2 K/mcL (0.6-4.6); Lymphocytes % 17.6 %; Mean Corpuscular HGB Conc 32.4 g/dL (31.6-35.5); Mean Corpuscular Hemoglobin 27.4 pg (28.0-33.3); Mean Corpuscular Volume 84.6 fL (83.0-100.0); Monocytes # 0.3 K/mcL (0.0-1.3); Monocytes % 4.1 %; Neutrophils # 4.3 K/mcL (1.6-8.9); Platelet Count 207 K/mcL (140-400); Red Blood Count 4.23 M/mcL (4.19-5.50); Red Cell Distribution Width 15.5 % (11.5-14.5); Segmented Neutrophils % 65.1 %; White Blood Count 6.6 K/mcL (4.3-11.1)
[2020-03-12 06:24] LABS: Calcium 8.9 mg/dL (8.6-10.3); Magnesium 1.7 mg/dL (1.6-2.6); Potassium 3.8 mEq/L (3.5-5.1)
[2020-03-12] MEDS: paricalcitoL 1 MCG CAPSULE PO SCH (09:07)
[2020-03-12] MEDS: Piperacillin/Tazobactam 3.375 GM in 0.9 % Sodium Chloride Mini Bag 100 ML IVPB SCH ×2 (09:08→14:55)
[2020-03-12] MEDS: DAPTOmycin 450 MG in 0.9 % Sodium Chloride 100 ML IVPB SCH (14:56)
[2020-03-12] MEDS: Cefepime HCl 2,000 MG in Water for inj. (sterile) 20 ML IVP SCH (17:06)
[2020-03-12] MEDS: metroNIDAZOLE 500 MG TABLET PO SCH (21:32)
[2020-03-13 02:42] LABS: Basophils # 0.1 K/mcL (0.0-0.2); Basophils % 0.7 %; Eosinophils # 0.8 K/mcL (0.0-0.6); Eosinophils % 10.9 %; Hematocrit 33.3 % (37.5-50.1); Hemoglobin 10.9 g/dL (12.9-16.9); Immature Granulocytes % 1.3 % (0-4); Lymphocytes # 1.3 K/mcL (0.6-4.6); Lymphocytes % 16.6 %; Mean Corpuscular HGB Conc 32.7 g/dL (31.6-35.5); Mean Corpuscular Hemoglobin 27.6 pg (28.0-33.3); Mean Corpuscular Volume 84.3 fL (83.0-100.0); Mean Platelet Volume 8.9 fL (9.4-12.4); Monocytes # 0.5 K/mcL (0.0-1.3); Monocytes % 6.2 %; Neutrophils # 4.9 K/mcL (1.6-8.9); Platelet Count 225 K/mcL (140-400); Red Blood Count 3.95 M/mcL (4.19-5.50); Red Cell Distribution Width 15.5 % (11.5-14.5); Segmented Neutrophils % 64.3 %; White Blood Count 7.6 K/mcL (4.3-11.1)
[2020-03-13 02:55] LABS: Calcium 8.8 mg/dL (8.6-10.3); Potassium 4.2 mEq/L (3.5-5.1)
[2020-03-13 02:56] LABS: Albumin 2.9 g/dL (3.5-5.7); Albumin/Globulin Ratio 0.9 (1.1-2.2); Bilirubin,Indirect 0.3 mg/dL (0.0-1.0); Bilirubin,Total 0.3 mg/dL (0.3-1.0); Globulin 3.1 g/dL (2.4-3.5)
[2020-03-13] MEDS: Cefepime HCl 2,000 MG in Water for inj. (sterile) 20 ML IVP SCH ×2 (05:41→17:44)
[2020-03-13] MEDS: metroNIDAZOLE 500 MG TABLET PO SCH ×3 (09:29→19:45)
[2020-03-13] MEDS ORDERED: DAPTOmycin 450 MG in 0.9 % Sodium Chloride 100 ML IVPB SCH (12:30)
[2020-03-13] MEDS: DAPTOmycin 450 MG in 0.9 % Sodium Chloride 100 ML IVPB SCH (13:52)
[2020-03-14] MEDS: Cefepime HCl 2,000 MG in Water for inj. (sterile) 20 ML IVP SCH ×2 (05:46→18:12)
[2020-03-14 07:24] LABS: Basophils # 0.1 K/mcL (0.0-0.2); Basophils % 0.7 %; Eosinophils # 0.8 K/mcL (0.0-0.6); Eosinophils % 8.5 %; Hematocrit 33.6 % (37.5-50.1); Hemoglobin 11.1 g/dL (12.9-16.9); Immature Granulocytes % 2.7 % (0-4); Lymphocytes # 1.2 K/mcL (0.6-4.6); Lymphocytes % 12.9 %; Mean Corpuscular Hemoglobin 27.5 pg (28.0-33.3); Mean Corpuscular Volume 83.2 fL (83.0-100.0); Mean Platelet Volume 8.6 fL (9.4-12.4); Monocytes # 0.5 K/mcL (0.0-1.3); Monocytes % 5.4 %; Neutrophils # 6.7 K/mcL (1.6-8.9); Platelet Count 245 K/mcL (140-400); Red Blood Count 4.04 M/mcL (4.19-5.50); Red Cell Distribution Width 15.5 % (11.5-14.5); Segmented Neutrophils % 69.8 %; White Blood Count 9.6 K/mcL (4.3-11.1)
[2020-03-14 07:36] LABS: Calcium 8.9 mg/dL (8.6-10.3); Potassium 4.3 mEq/L (3.5-5.1)
[2020-03-14] MEDS: metroNIDAZOLE 500 MG TABLET PO SCH ×3 (09:15→19:54)
[2020-03-14] MEDS: DAPTOmycin 450 MG in 0.9 % Sodium Chloride 100 ML IVPB SCH (13:57)
[2020-03-15 01:24] LABS: Basophils # 0.1 K/mcL (0.0-0.2); Basophils % 0.8 %; Eosinophils # 0.9 K/mcL (0.0-0.6); Eosinophils % 7.9 %; Hematocrit 34.7 % (37.5-50.1); Hemoglobin 11.3 g/dL (12.9-16.9); Immature Granulocytes % 4.6 % (0-4); Lymphocytes # 1.5 K/mcL (0.6-4.6); Lymphocytes % 13.5 %; Mean Corpuscular HGB Conc 32.6 g/dL (31.6-35.5); Mean Corpuscular Hemoglobin 27.8 pg (28.0-33.3); Mean Corpuscular Volume 85.3 fL (83.0-100.0); Mean Platelet Volume 8.9 fL (9.4-12.4); Monocytes # 0.7 K/mcL (0.0-1.3); Monocytes % 6.4 %; Neutrophils # 7.2 K/mcL (1.6-8.9); Platelet Count 270 K/mcL (140-400); Red Blood Count 4.07 M/mcL (4.19-5.50); Red Cell Distribution Width 15.5 % (11.5-14.5); Segmented Neutrophils % 66.8 %; White Blood Count 10.8 K/mcL (4.3-11.1)
[2020-03-15 01:36] LABS: Calcium 8.6 mg/dL (8.6-10.3); Potassium 4.2 mEq/L (3.5-5.1)
[2020-03-15] MEDS: Cefepime HCl 2,000 MG in Water for inj. (sterile) 20 ML IVP SCH ×2 (05:25→18:08)
[2020-03-15] MEDS: metroNIDAZOLE 500 MG TABLET PO SCH ×3 (08:14→19:22)
[2020-03-15] MEDS: paricalcitoL 1 MCG CAPSULE PO SCH (08:23)
[2020-03-15] MEDS: DAPTOmycin 450 MG in 0.9 % Sodium Chloride 100 ML IVPB SCH (15:00)
[2020-03-16 04:56] LABS: Calcium 8.5 mg/dL (8.6-10.3)
[2020-03-16] MEDS: Cefepime HCl 2,000 MG in Water for inj. (sterile) 20 ML IVP SCH ×2 (05:23→17:42)
[2020-03-16] MEDS ORDERED: Lidocaine/EPI 1:100k 1% 50 ML VIAL ONE (08:15)
[2020-03-16] MEDS ORDERED: Heparin 1,000 UNITS/500 mL 500 ML ONE (08:15)
[2020-03-16] MEDS ORDERED: 0.9 % Sodium Chloride 500 ML ONE (08:30)
[2020-03-16] MEDS: metroNIDAZOLE 500 MG TABLET PO SCH ×3 (10:32→20:18)
[2020-03-16] MEDS: DAPTOmycin 450 MG in 0.9 % Sodium Chloride 100 ML IVPB SCH (14:44)
[2020-03-17] MEDS: Cefepime HCl 2,000 MG in Water for inj. (sterile) 20 ML IVP SCH ×2 (05:00→19:38)
[2020-03-17 05:14] LABS: Calcium 8.4 mg/dL (8.6-10.3)
[2020-03-17] MEDS: metroNIDAZOLE 500 MG TABLET PO SCH ×3 (09:17→20:34)
[2020-03-17] MEDS: paricalcitoL 1 MCG CAPSULE PO SCH (09:22)
[2020-03-17] MEDS: DAPTOmycin 450 MG in 0.9 % Sodium Chloride 100 ML IVPB SCH (14:23)
[2020-03-18] MEDS: Cefepime HCl 2,000 MG in Water for inj. (sterile) 20 ML IVP SCH ×2 (06:03→17:44)
[2020-03-18 06:37] LABS: Calcium 9.1 mg/dL (8.6-10.3); Potassium 4.4 mEq/L (3.5-5.1)
[2020-03-18] MEDS: metroNIDAZOLE 500 MG TABLET PO SCH (08:53)
[2020-03-18] MEDS: DAPTOmycin 450 MG in 0.9 % Sodium Chloride 100 ML IVPB SCH (14:07)
[2020-03-19] MEDS: Cefepime HCl 2,000 MG in Water for inj. (sterile) 20 ML IVP SCH (06:07)
[2020-03-19 06:29] VITALS: BP 146/66
[2020-03-19 08:37] LABS: Calcium 9.1 mg/dL (8.6-10.3); Potassium 4.4 mEq/L (3.5-5.1)
[2020-03-19] MEDS: paricalcitoL 1 MCG CAPSULE PO SCH (10:27)
[2020-03-19] MEDS ORDERED: DAPTOmycin 450 MG in 0.9 % Sodium Chloride 100 ML IVPB SCH (11:00)
== END 2020-03-19 12:37 | disposition home health service (06) | DRG 623 ==
LOC: EMEROO 20:38 → 3NENU 20:38 → SUATTDRO 23:40 → 3NENU 03-10 00:18 → SUATTDRO 03-10 11:05
PROVIDERS: ADMIT Student in an Organized Health Care Education/Training Program; ATTEND Family Medicine